=== PATIENT | female | born 1960 | race Caucasian/White ===

== ENCOUNTER → 2016-03-20 | Outpatient (CLI) | payer OTHER ==
[~2016-03-20] MED LIST: BUPR-79 PO; CEPH500C PO; LEVO200T PO; RANI1TAB75 PO
[2016-03-20 10:08] LABS: BASO ABS # 0.03 K/uL (0-0.2); COMPLETE YES; HEMATOCRIT 36.5 % (37-47); LYMPH % 34.4 %; LYMPH ABS # 1.07 K/uL (1.2-3.4); MEAN CELL VOLUME 90.8 fL (80-100); MEAN CORPUSCULAR HEMOGLOBIN 30.6 pg (25-34); MEAN CORPUSCULAR HGB CONC 33.7 g/dl (32-36); MEAN PLATELET VOLUME 10.2 fL (7.4-10.4); MONO % 7.4 %; NEUT % 56.2 %; PLATELET COUNT 134 K/uL (130-400); RED BLOOD COUNT 4.02 M/uL (4.2-5.4); WHITE BLOOD COUNT 3.11 K/uL (4.8-10.8)
== END | disposition home or self-care (01) ==
LOC: C.LAB 09:07
PROVIDERS: ATTEND Family Medicine
DX: K91.2 Postsurgical malabsorption, not elsewhere classified (principal)

== ENCOUNTER 2016-09-26 13:47 | Emergency (ER) | payer OTHER ==
[~2016-09-26] VITALS: Ht 160 cm; Wt 73.8 kg
[2016-09-26 13:50] VITALS: TEMP 37.2; Ht 160 cm; Wt 73.8 kg
[2016-09-26] MEDS ORDERED: XYLOCAINE 1%/SOD BICARB 20 ML VIAL INFIL ONE (13:57)
[2016-09-26] MEDS ORDERED: BUPR-79 PO (14:01)
[2016-09-26] MEDS ORDERED: LEVO200T PO (14:01)
[2016-09-26] MEDS ORDERED: RANI1TAB75 PO (14:01)
[2016-09-26] MEDS ORDERED: GELATIN SPONGE 12-7MM EXT ONE (15:30)
[2016-09-26] MEDS ORDERED: CEPH500C PO (15:45)
--- NOTE | 2016-09-26 15:45 | EMERGENCY ROOM VISIT NOTE ---
ED Visit Note First contact with patient: 14:24 CHIEF COMPLAINT: Finger avulsion HISTORY OF PRESENT ILLNESS: This 56-year-old female patient presents to the emergency department approximately 1-1/2 hours after cutting the tip of her right middle finger while cutting corn off of the cob. The patient states she was using a V-shaped bleed to remove corn from the cob for freezing, when she accidentally sliced off the tip of her right middle finger. The bleeding has not stopped. She has been applying direct pressure to the wound, however continues to lead significantly. The patient is not on blood thinners. Denies weakness or numbness of the finger. The patient has full range of motion of the fingers. The patient rates the pain as minimal and 0/10. The patient denies any other injuries. The patient's tetanus shot is up to date. REVIEW OF SYSTEMS: A 6 system review of systems was completed with positives and pertinent negatives listed in the HPI. ALLERGIES: Codeine MEDICATIONS: Wellbutrin, Synthroid, ranitidine, and another antidepressant, which the patient is unable to recall the name of PMH: Depression, hypothyroidism, GERD SOCIAL HISTORY: The patient lives locally with family. She denies drug, alcohol , tobacco use. PHYSICAL EXAM: Vital Signs: Reviewed Nurse's notes, vital signs stable. GENERAL : This is a 56-year-old female, in no acute distress, well developed, well nourished. SKIN: The anterior fingertip of the right third digit is avulsed. There is no skin remaining. The wound is bleeding from what appears to be a single small blood vessel. There is no foreign material in the wound and it looks clean. No deep structures such as tendons, bones, or significant blood vessels are seen in the base of the wound. Extension and flexion of the finger is full and strong. Full range of motion of the wrist and other fingers. Capillary refill less than 2 seconds. Normal sensation to light and sharp touch. EMERGENCY DEPARTMENT COURSE: I examined the patient. Attempts were made to stop the bleeding with direct pressure and ice. This was applied for proximally 40 minutes. There was no improvement in the patient's bleeding. At this time, I did remove the bandage and apply Gelfoam with pressure. The bleeding continued through the Gelfoam and overlying bandage. At this time, surgicel was used in conjunction with a finger tourniquet. The bleeding did stop with the tourniquet, however upon removal of the tourniquet after 10 minutes, the bleeding began again. At this time, I did consult with Renetta Corbin PA-C to come evaluate the patient. She suggested ligating the vessel using 6- 0 fast absorbing sutures. Verbal consent was obtained to perform the procedure. Using sterile technique the wound was cleansed with Betadine. 6 ml of 1% buffered lidocaine was used to perform a digital block to anesthetize the patient. The area was sterilely draped. Once the patient was anesthetized, the wound was copiously irrigated under pressure with sterile saline. The wound was explored and was as described above. Attempts were made to ligate the vessel with 4 6-0 fast-absorbing sutures. I was unsuccessful at this time. I called Renetta Corbin PA-C back to the room, and she did successfully ligate the vessel with 2 6-0 simple fast-absorbing sutures after locally anesthetizing the blood vessel. The patient tolerated the procedure well. Hemostasis was achieved. The area was cleaned with sterile saline and dressed with Gelfoam and a bandage. The patient was discharged home in good condition. DIFFERENTIAL DIAGNOSIS: Finger laceration, avulsion, fracture, infection, arterial bleed, and others. DIAGNOSIS: Finger avulsion DISCHARGE INSTRUCTIONS & TREATMENT: Please leave the bandage which was applied in the emergency department in place until tomorrow, unless it bleeds through. If it bleeds through, remove the outer bandage, and replace it with new gauze, but attempt to leave the inner bandage in place. We did ligate the blood vessel with fast absorbing sutures. These will absorb on their own, and you do not need further follow-up for removal of sutures. You were prescribed Keflex to be taken 4x daily. This is an antibiotic. All antibiotics have the potential to cause diarrhea. Stop this medication and contact a medical provider if you were to develop any significant adverse side effects including: wheezing, shortness of breath, passing out, vomiting, or a diffuse rash. Always take antibiotics as directed and COMPLETE the ENTIRE course regardless of the improvement of your symptoms. If the wound begins rebleeding, apply direct pressure and ice. Hold this until the bleeding stops. If you're unable to stop the bleeding at home, return to the emergency department for further management. Proper wound care is essential for adequate wound healing and infection prevention. You can shower and clean the wound with soap and water. Do not scour over the wound, pat dry with a towel. Do not submerse the wound (i.e. bathe or dish wash) until the wound has fully healed. You can use an antibiotic ointment with a dressing over the wound for the next 3-4 days. After this time you may leave the wound dry and open to the air. Please return to the emergency department for worsening bleeding, pus, drainage , pain, redness, swelling, or if you're unable to control the bleeding at home. Do not take any NSAIDs or aspirin. You may use Tylenol as needed for pain, but do not exceed the recommended dosing or take more than 3000mg acetaminophen in 24 hours. Please follow-up with your PCP in 1-2 days for recheck and further evaluation of wound. Current/Historical Medications Scheduled Bupropion (Wellbutrin Sr), 150 MG PO BID Cephalexin Monohydrate (Keflex), 500 MG PO QID Levothyroxine Sodium (Synthroid), 200 MCG PO DAILY Ranitidine HCl (Ranitidine 75), 75 MG PO DAILY Allergies Coded Allergies: Codeine (Verified Allergy, Intermediate, HIVES, 03/24/09) Vital Signs Date Time Temp Pulse Resp B/P (MAP) Pulse Ox O2 Delivery O2 Flow Rate FiO2 09/26/16 16:53 82 16 124/72 98 09/26/16 13:50 37.2 82 20 118/59 95 Room Air Departure Information Impression Primary Impression: Fingertip avulsion Dispostion Home / Self-Care Condition GOOD Prescriptions Cephalexin Monohydrate (Keflex) 500 Mg Cap 500 MG PO QID for 7 Days, #28 CAP Prov: Nafisa Vernon PA-C 09/26/16 Referrals Caryn Lam M.D. (PCP) Patient Instructions ED Avulsion Dermal, [facility] Additional Instructions Please leave the bandage which was applied in the emergency department in place until tomorrow, unless it bleeds through. If it bleeds through, remove the outer bandage, and replace it with new gauze, but attempt to leave the inner bandage in place. We did ligate the blood vessel with fast absorbing sutures. These will absorb on their own, and you do not need further follow-up for removal of sutures. You were prescribed Keflex to be taken 4x daily. This is an antibiotic. All antibiotics have the potential to cause diarrhea. Stop this medication and contact a medical provider if you were to develop any significant adverse side effects including: wheezing, shortness of breath, passing out, vomiting, or a diffuse rash. Always take antibiotics as directed and COMPLETE the ENTIRE course regardless of the improvement of your symptoms. If the wound begins rebleeding, apply direct pressure and ice. Hold this until the bleeding stops. If you're unable to stop the bleeding at home, return to the emergency department for further management. Proper wound care is essential for adequate wound healing and infection prevention. You can shower and clean the wound with soap and water. Do not scour over the wound, pat dry with a towel. Do not submerse the wound (i.e. bathe or dish wash) until the wound has fully healed. You can use an antibiotic ointment with a dressing over the wound for the next 3-4 days. After this time you may leave the wound dry and open to the air. Please return to the emergency department for worsening bleeding, pus, drainage , pain, redness, swelling, or if you're unable to control the bleeding at home. Do not take any NSAIDs or aspirin. You may use Tylenol as needed for pain, but do not exceed the recommended dosing or take more than 3000mg acetaminophen in 24 hours. Please follow-up with your PCP in 1-2 days for recheck and further evaluation of wound. Problem Qualifiers Primary Impression: Fingertip avulsion Encounter type: initial encounter Qualified Codes: S61.209A - Unspecified open wound of unspecified finger without damage to nail, initial encounter
[2016-09-26 16:53] VITALS: BP 124/72; PULSE 82; O2SAT 98
== END 2016-09-26 16:54 | disposition home or self-care (01) ==
LOC: C.EDB 13:52 → C.EDD 16:54
DX: S61.202A Unspecified open wound of right middle finger without damage to nail, initial encounter (principal); W45.8XXA Other foreign body or object entering through skin, initial encounter

== ENCOUNTER 2022-08-01 06:08 | Inpatient (IN) ==
[2022-08-01] MEDS ORDERED: ACETAMINOPHEN 1,000 MG/100 ML VIAL IV STA (06:35)
[2022-08-01] MEDS ORDERED: dexAMETHasone**PF** 10 MG/ML VIAL IV ONE (06:35)
[2022-08-01] MEDS ORDERED: CYCLOBENZAPRINE HCL 5 MG TAB PO STA (06:35)
[2022-08-01] MEDS ORDERED: ONDANSETRON INJ 2 MG/ML 2 ML VIAL IV STA (06:35)
[2022-08-01] MEDS ORDERED: MoRPHine SULFATE 2 MG/ML CARP IV STA (06:35)
[2022-08-01] MEDS ORDERED: KETOROLAC TROMETHAMINE 15 MG/ML VIAL IV STA (06:35)
--- NOTE | 2022-08-01 06:40 | Emergency Department Note ---
Impression & Plan Lower back pain, Sciatica ED Provider Note NAME: LISBETH VELAZQUEZ AGE: 62 SEX: F : 1960 ARRIVES VIA: Walk-In INFORMANT: [Patient] ED PROVIDER(S): [Paul Jackson MD] CHIEF COMPLAINT: Back pain HISTORY OF PRESENT ILLNESS: The patient is a 62-year-old female who states that 4 days ago she was sitting on the floor and bent forward and felt something pull in her left lower back. She was using Tylenol and things were feeling better up until yesterday when she bent over and flared things up once again. She has left-sided back pain that is worse with movement. She feels pain move down the left leg. The left leg is not weak. There is no numbness in the leg or groin. No difficulty with urination or her bowels. She did not fall. There has been no fever or chills. She is here for pain control. PMHx/PSHx: See Below SOCIAL HISTORY: See Below. PHYSICAL EXAM: GENERAL: Patient is in no acute distress. HEENT: No acute trauma, normocephalic atraumatic, mucous membranes moist, no nasal congestion. LUNGS: Clear to auscultation bilaterally, no wheeze, no rhonchi, breath sounds equal. HEART: Without murmurs gallops or rubs, regular rate and rhythm. EXTREMITIES: No cyanosis or edema, full range of motion of all the joints without pain or difficulty, no signs for acute trauma. NEUROLOGIC: Oriented x 3, no acute motor or sensory deficits, no focal weakness. She has 2/4 left patellar and Achilles reflexes. She has strong plantar flexion on the left and strong left great toe dorsiflexion. SKIN: No rash, no jaundice, no diaphoresis. Back: Tender in the area of the left lumbar and left SI joint. The muscles here do seem in spasm. Her pain does worsen with movement. DIFFERENTIAL DIAGNOSIS: Lumbar strain, hematoma, nerve impingement, sciatica, herniated disc disease, fracture, among others. EMERGENCY DEPARTMENT COURSE/PROCEDURES: Prior/Outside records reviewed: None. MEDICAL DECISION MAKING: There is no leukocytosis or concerning anemia. There is a normal platelet count. No renal failure or significant electrolyte abnormality. COVID testing returned negative. On exam, the patient was tender in the left lumbar area and left SI joint. Reflexes and strength in the left lower extremity were both intact. The patient received IV Tylenol, IV Decadron, IV Toradol, IV morphine, IV Zofran and eventually IV Dilaudid for pain control. Despite these meds, she was still quite uncomfortable. An MRI of the lumbar spine was done, there was a disc bulge seen but no pathology thought acutely surgical as per radiology. Patient is going to be hospitalized for pain control. She cannot go home in this condition. I did speak with case management, the on-call hospitalist was consulted. DISPOSITION: Patient's presentation and findings warrant a hospital stay. Past Med/Surg History Medical History TERRANCE (generalized anxiety disorder) Hypothyroidism MDD (major depressive disorder) Obesity (BMI 30-39.9) Surgical History (Updated 08/01/22 @ 12:44 by Lorelei Song PA-C) History of partial hysterectomy Hx of breast reduction, elective Hx of colonoscopy Hx of gastric bypass Family History (Updated 08/01/22 @ 12:45 by Lorelei Song PA-C) Father Diabetes Hypertension Cancer esophageal cancer Sister Diabetes Social History Smoking Status: Never smoker Hx Alcohol Use: Yes Alcohol Intake Frequency: Monthly or Less Preferred Language: Indonesian Feels Safe at Home: Yes Allergies Allergies Allergy/AdvReac Type Severity Reaction Status Date / Time codeine Allergy Intermediate HIVES Verified 08/01/22 09:35 Home Meds Home Medications Medication Instructions Recorded Confirmed bupropion HCl 150 mg tablet,12 hr 150 mg PO BID 08/01/22 08/01/22 sustained-release duloxetine 30 mg capsule,delayed See Rx Instructions .Route .COMPLEX 08/01/22 08/01/22 release duloxetine 60 mg capsule,delayed See Rx Instructions .Route .COMPLEX 08/01/22 08/01/22 release levothyroxine 112 mcg tablet 112 mcg PO QAM 08/01/22 08/01/22 trazodone 50 mg tablet 50 mg PO HS 08/01/22 08/01/22 Results & Data (ED) Vital Signs Vital Signs - 24 hr 08/01/22 06:10 08/01/22 06:26 08/01/22 06:26 Temperature 36.5 C Temperature Source Temporal Artery Scan Pulse Rate 82 61 Pulse Rate [Apical] 62 Pulse Rate from SpO2 Sensor Respiratory Rate 18 16 Respiratory Effort / Characteristics Non-Labored Spontaneous Respiratory Depth Normal Blood Pressure 117/71 Blood Pressure [Right Arm] 118/60 Blood Pressure Mean 86 Blood Pressure Mean [Right Arm] 79 Blood Pressure Position Sitting Pulse Oximetry 100 100 Oxygen Delivery Method Room Air Room Air Oxygen Flow Rate Sepsis Recent Fever Within 48 Hours No Sepsis New/Unexplained Change in Mental Status No Sepsis Action Taken by Nursing No Action Required 08/01/22 08:54 08/01/22 09:32 08/01/22 10:12 Temperature Temperature Source Pulse Rate 71 Pulse Rate [Apical] 77 68 Pulse Rate from SpO2 Sensor Respiratory Rate 20 16 Respiratory Effort / Characteristics Non-Labored Spontaneous Non-Labored Respiratory Depth Normal Normal Blood Pressure Blood Pressure [Right Arm] 124/65 117/74 Blood Pressure Mean Blood Pressure Mean [Right Arm] 84 88 Blood Pressure Position Pulse Oximetry 96 98 Oxygen Delivery Method Room Air Nasal Cannula Oxygen Flow Rate 4 Sepsis Recent Fever Within 48 Hours Sepsis New/Unexplained Change in Mental Status Sepsis Action Taken by Nursing 08/01/22 12:05 08/01/22 13:01 08/01/22 13:41 Temperature Temperature Source Pulse Rate 58 L 66 70 Pulse Rate [Apical] Pulse Rate from SpO2 Sensor 58 L 65 Respiratory Rate 16 16 Respiratory Effort / Characteristics Respiratory Depth Blood Pressure 116/66 127/76 Blood Pressure [Right Arm] Blood Pressure Mean 82 93 Blood Pressure Mean [Right Arm] Blood Pressure Position Pulse Oximetry 98 98 Oxygen Delivery Method Nasal Cannula Nasal Cannula Oxygen Flow Rate 3 3 Sepsis Recent Fever Within 48 Hours Sepsis New/Unexplained Change in Mental Status Sepsis Action Taken by Nursing 08/01/22 14:00 08/01/22 15:00 Temperature Temperature Source Pulse Rate 63 68 Pulse Rate [Apical] Pulse Rate from SpO2 Sensor 61 69 Respiratory Rate 18 16 Respiratory Effort / Characteristics Respiratory Depth Blood Pressure 128/72 108/79 Blood Pressure [Right Arm] Blood Pressure Mean 90 88 Blood Pressure Mean [Right Arm] Blood Pressure Position Pulse Oximetry 98 99 Oxygen Delivery Method Nasal Cannula Nasal Cannula Oxygen Flow Rate 3 3 Sepsis Recent Fever Within 48 Hours Sepsis New/Unexplained Change in Mental Status Sepsis Action Taken by [facility] Medications Current Medication List: was personally reviewed by me Laboratory Data Attestation: I reviewed the patient's lab results. 08/01/22 11:49 08/01/22 11:49 Lab Results 08/01/22 08/01/22 08/01/22 Range/Units 11:49 11:49 11:54 WBC 4.29 L (4.8-10.8) K/ul RBC 3.99 L (4.20-5.40) M/uL Hgb 12.2 (12.0-16.0) g/dl Hct 36.3 L (37.0-47.0) % MCV 91.0 (80.0-100.0) fL MCH 30.6 (25.0-34.0) pg MCHC 33.6 (32.0-36.0) g/dL RDW Std Deviation 40.7 (36.4-46.3) fL RDW Coeff of Chris 12.3 (11.5-14.5) % Plt Count 153 (130-400) K/uL MPV 10.2 (9.4-12.4) fL Sodium 140 (136-145) mmol/L Potassium 4.6 (3.5-5.1) mmol/L Chloride 108 H (98-107) mmol/L Carbon Dioxide 28 (21-32) mmol/L Anion Gap 4 (3-11) BUN 16 (6-23) mg/dl Creatinine 0.99 (0.6-1.2) mg/dl Est Cr Clr Drug Dosing 59.6 ml/min Est GFR ( Amer) 71.3 ml/min Est GFR (Non-Af Amer) 61.5 ml/min BUN/Creatinine Ratio 16.2 (10-20) Glucose 137 H (70-99(Fasting)) mg/dl Calcium 9.1 (8.6-10.3) mg/dl SARS-CoV-2, RNA, NAAT NEGATIVE (NEGATIVE) Administered Medications Discontinued Medications Cyclobenzaprine HCl (Cyclobenzaprine Hcl 5 Mg Tab) 5 mg PO NOW STA Stop: 08/01/22 06:36 Last Admin: 08/01/22 06:54 Dose: 5 mg Documented By: RONALDO Dexamethasone Sodium Phosphate (DexamethasonePf 10 Mg/Ml Vial) 10 mg IV NOW ONE Stop: 08/01/22 06:36 Last Admin: 08/01/22 06:52 Dose: 10 mg Documented By: RONALDO Hydromorphone HCl (Hydromorphone Inj 0.5 Mg/0.5 Ml Syr) 0.5 mg IV NOW STA Stop: 08/01/22 08:53 Last Admin: 08/01/22 08:56 Dose: 0.5 mg Documented By: HERIBERTO Acetaminophen (Ofirmev) 1,000 mg in 100 mls @ 400 mls/hr IV NOW STA Stop: 08/01/22 06:49 Last Infusion: 08/01/22 07:09 Dose: 0 mls/hr Documented By: Admin: 08/01/22 06:49 Dose: 400 mls/hr Documented By: RONALDO Ketorolac Tromethamine (Ketorolac Tromethamine 15 Mg/Ml Vial) 15 mg IV NOW STA Stop: 08/01/22 06:36 Last Admin: 08/01/22 06:50 Dose: 15 mg Documented By: RONALDO Morphine Sulfate (Morphine Sulfate 2 Mg/Ml Carp) 2 mg IV NOW STA Stop: 08/01/22 06:36 Last Admin: 08/01/22 06:55 Dose: 2 mg Documented By: RONALDO Ondansetron HCl (Ondansetron Inj 2 Mg/Ml 2 Ml Vial) 4 mg IV NOW STA Stop: 08/01/22 06:36 Last Admin: 08/01/22 06:53 Dose: 4 mg Documented By: RONALDO Imaging Data Radiologist's Impression: Lumbar Spine MRI 08/01/22 08:52 MR lumbar spine wo con CLINICAL HISTORY: left back pain, left sciatica TECHNIQUE: Multiplanar sequences through the lumbar spine were obtained, without intravenous contrast. Comparison: None available at the time of this dictation. FINDINGS: The alignment is anatomical. L1-L2: Mild posterior disc bulge is seen without significant canal or neuroforaminal stenosis. L2-L3: Mild posterior disc bulge is seen without significant canal or neuroforaminal stenosis. L3-L4: Broad-based posterior disc bulge results in moderate canal stenosis, AP diameter is 6 mm. There is moderate bilateral neuroforaminal stenosis. L4-L5: No significant abnormality. L5-S1: No significant abnormality. The spinal ligaments are intact, without evidence of disruption or abnormal si gnal intensity. The spinal cord is normal in signal intensity and there is no evidence of cord contusion. There is no evidence of an extradural, intradural, extramedullary or intramedullary lesion. Visualized soft tissues are normal. IMPRESSION: Multilevel degenerative changes are seen with prominent disc bulge at L3-L4. There is moderate canal or neural foraminal ACT 112: Negative or not required by law. Electronically signed by: Theodore See M.D. 08/01/2022 11:21 AM Discharge Plan Visit Data Chief Complaint: Back Injury/Pain Stated Complaint: BACK PAIN ED Provider: Paul Jackson Discharge Problem: Lower back pain, Sciatica Patient Disposition: Admitted As Inpatient Condition: Fair Forms Stand Alone Forms: [facility] Prescriptions Prescriptions: No Action bupropion HCl 150 mg tablet sustained-release 12 hr 150 mg PO BID trazodone 50 mg tablet 50 mg PO HS levothyroxine 112 mcg tablet 112 mcg PO QAM duloxetine 30 mg capsule,delayed release(DR/EC) See Rx Instructions .ROUTE .COMPLEX Rx Instructions: Take 30mg capsule w/ 60mg capsule to equal 90mg once in the morning duloxetine 60 mg capsule,delayed release(DR/EC) See Rx Instructions .ROUTE .COMPLEX Rx Instructions: Take 60mg capsule w/ 30mg capsule to equal 90mg once in the morning Referrals Referrals: Alin Taveras MD [Primary Care Provider] -
[2022-08-01] MEDS ORDERED: HYDROmorphone INJ 0.5 MG/0.5 ML SYR IV STA (08:52)
--- NOTE | 2022-08-01 11:23 | Magnetic Resonance Report ---
MR lumbar spine wo con CLINICAL HISTORY: left back pain, left sciatica TECHNIQUE: Multiplanar sequences through the lumbar spine were obtained, without intravenous contrast . Comparison: None available at the time of this dictation. FINDINGS: The alignment is anatomical. L1-L2: Mild posterior disc bulge is seen without significant canal or neuroforaminal stenosis. L2-L3: Mild posterior disc bulge is seen without significant canal or neuroforaminal stenosis. L3-L4: Broad-based posterior disc bulge results in moderate canal stenosis, AP diameter is 6 mm. Ther e is moderate bilateral neuroforaminal stenosis. L4-L5: No significant abnormality. L5-S1: No significant abnormality. The spinal ligaments are intact, without evidence of disruption or abnormal signal intensity. The spi nal cord is normal in signal intensity and there is no evidence of cord contusion. There is no eviden ce of an extradural, intradural, extramedullary or intramedullary lesion. Visualized soft tissues are normal. IMPRESSION: Multilevel degenerative changes are seen with prominent disc bulge at L3-L4. There is moderate canal or neural foraminal ACT 112: Negative or not required by law. Electronically signed by: Theodore See M.D. 08/01/2022 11:21 AM
--- NOTE | 2022-08-01 11:51 | History & Physical Report ---
Date of Service August 01, 2022 Assessment & Plan (1) Back pain: Plan: - Admit to med surg - Continue with pain control tylenol, toradol IV, dilaudid IV prn - Pt received dexamethasone 10 mg IV x 1 in the ER along with toradol, morphine sulfate, dilaudid, cyclobenzaprine - her pain is adequately controlled at present-consider additional steroid administration tomorrow with taper - MRI spine reviewed - Impression shows Multilevel degenerative changes are seen with prominent disc bulge at L3-L4. There is moderate canal or neural foraminal stenosis. - Ortho consulted for further recommendations -? brace ? ortho spine not available in hospital today - Allow diet for now - PT/OT consults (2) Hypothyroidism: Plan: - Continue levothyroxine 112 mcg daily (3) MDD (major depressive disorder): (4) TERRANCE (generalized anxiety disorder): Plan: - Cont wellbutrin 150 mg BID, cymbalta 90 mg daily (5) Obesity (BMI 30-39.9): Plan: - S/p gastric bypass surgery - BMI of 31.0, pt does not diet or exercise routinely. No strength training or yoga - this may be beneficial for her for core strength and back support in the further - PT/OT as above DVT ppx: teds, scds, heparin subq CODE: FULL code Dispo: From home, likely to remain in the hospital for 1-2 days A total of 77 minutes were spent with greater than 50% of that time face to face with the patient, personally reviewing all current laboratories, imaging studies, past medication reconciliation, outpatient chart review, and discussion with specialists to collaborate care for the patient with attending. Please see attending documentation for corrections and/or additions. History of Present Illness Chief Complaint: Back pain Primary Care Provider: Alin Taveras MD This is 62 yo F with PMhx of MDD, TERRANCE, CKD, Hypothyroidism, gastric bypass surgery, GERD, who presents with worsening back pain x 5 days. She reports recently getting a new puppy; She was sitting on the floor Friday with the dog and reached for something and felt a pop in her left lower back. She was using tylenol, aleve, salonpas heat pads, ice, and thought it was getting better. Yesterday again she felt her back pop when she was sitting on the sofa and went to stretch/get up and had horrible pain in her left side of her lower back which radiates down the back of her left leg, as well as the front of her left groin region. She was having difficulty getting into bed, and was able to walk but was in terrible amount of pain. Pt states was unable to control the pain at home and had her bring her to the ER today. Pt reports this is one of the worst pains she has ever felt. Denies numbness in her groin, denies incontinence. Last BM was yesterday. She was able to take her routine home medications this morning. No previous back surgery. Reports back has gone out of place about 3 times in the past month but does not see a chiropractor or specifically does any stretching or exercise at home. She just "waits it out" until things go back into place themselves and uses the above listed alleviating factors to help. Her Kody is present at bedside. Allergies Allergy/AdvReac Type Severity Reaction Status Date / Time codeine Allergy Intermediate HIVES Verified 08/01/22 09:35 Home Medications Medication Instructions Recorded Confirmed Type bupropion HCl 150 mg tablet,12 hr 150 mg PO BID 08/01/22 08/01/22 History sustained-release duloxetine 30 mg capsule,delayed See Rx Instructions .Route .COMPLEX 08/01/22 08/01/22 History release duloxetine 60 mg capsule,delayed See Rx Instructions .Route .COMPLEX 08/01/22 08/01/22 History release levothyroxine 112 mcg tablet 112 mcg PO QAM 08/01/22 08/01/22 History trazodone 50 mg tablet 50 mg PO HS 08/01/22 08/01/22 History Past Med/Surg History Medical History TERRANCE (generalized anxiety disorder) Hypothyroidism MDD (major depressive disorder) Obesity (BMI 30-39.9) Surgical History (Updated 08/01/22 @ 12:44 by Lorelei Song PA-C) History of partial hysterectomy Hx of breast reduction, elective Hx of colonoscopy Hx of gastric bypass Family History (Updated 08/01/22 @ 12:45 by Lorelei Song PA-C) Father Diabetes Hypertension Cancer esophageal cancer Sister Diabetes Social History Smoking Status: Never smoker Hx Alcohol Use: No Hx Substance Use: No Preferred Language: Lithuanian Communication Ability: Effective Human Resource Officer Required: No Beliefs That Will Affect Care: None Current Living Situation: Spouse Other Information That Helps Us Care for You: No Feels Safe at Home: Yes Safety Concerns: Feels Safe At This Time Assistive Devices: None Review of Systems Review of Systems: Constitutional: No fever, sweats or chills Eyes: No diplopia, no worsening or blurred vision ENT: normal hearing, no trouble swallowing Respiratory: No cough, sputum, dyspnea at rest or on exertion Cardiovascular: No chest pain, tightness or palpitations Back: As per HPI Abdomen: No pain, nausea, vomiting, diarrhea or constipation Musculoskeletal: No joint pain, calf pain, swelling Neurologic: No weakness, numbness/tingling, or balance problems Psychiatric: + anxiety and depression on medication Skin: No rash or itch Physical Exam Physical Exam: General: awake, alert, no apparent distress, appears fatigued, + comfortable, + obese with BMI 31.0 Head: Normocephalic, atraumatic ENT: PERRL, EOMI, no pharyngeal exudate, mucous membranes moist Chest: Clear to auscultation, on 2L via NC (does not wear at home), no adventitious breath sounds Cardiac: Regular rate and rhythm, no murmur, no JVD, normal peripheral pulses, good capillary refill Abdominal: NABS x 4 quadrants, soft, nondistended, nontender to palpation, no rebound or guarding Extremities: Normal inspection, no peripheral edema or erythema, calfs nontender to palpation Psych: Normal mood and affect Neuro: AAO x 3, strength intact bilaterally and rated 5/5, no motor deficits, speech is clear, no peripheral sensory deficits Results & Data Results & Data Vital Signs (Past 12 Hours) Vital Signs Temp Pulse Pulse Resp BP BP Pulse Ox 08/01/22 10:12 68 16 117/74 98 08/01/22 09:32 71 08/01/22 08:54 77 20 124/65 96 08/01/22 06:26 62 16 118/60 100 08/01/22 06:26 61 08/01/22 06:10 36.5 C 82 18 117/71 100 O2 Del Method O2 Flow Rate 08/01/22 10:12 Nasal Cannula 4 08/01/22 09:32 08/01/22 08:54 Room Air 08/01/22 06:26 Room Air 08/01/22 06:26 08/01/22 06:10 Room Air Laboratory Results 08/01/22 11:49 WBC 4.29 L RBC 3.99 L Hgb 12.2 Hct 36.3 L MCV 91.0 MCH 30.6 MCHC 33.6 RDW Std Deviation 40.7 RDW Coeff of Chris 12.3 Plt Count 153 MPV 10.2 Diagnostic Findings Lumbar Spine MRI 08/01/22 08:52 MR lumbar spine wo con CLINICAL HISTORY: left back pain, left sciatica TECHNIQUE: Multiplanar sequences through the lumbar spine were obtained, without intravenous contrast. Comparison: None available at the time of this dictation. FINDINGS: The alignment is anatomical. L1-L2: Mild posterior disc bulge is seen without significant canal or neuroforaminal stenosis. L2-L3: Mild posterior disc bulge is seen without significant canal or neuroforaminal stenosis. L3-L4: Broad-based posterior disc bulge results in moderate canal stenosis, AP diameter is 6 mm. There is moderate bilateral neuroforaminal stenosis. L4-L5: No significant abnormality. L5-S1: No significant abnormality. The spinal ligaments are intact, without evidence of disruption or abnormal signal intensity. The spinal cord is normal in signal intensity and there is no evidence of cord contusion. There is no evidence of an extradural, intradural, extramedullary or intramedullary lesion. Visualized soft tissues are normal. IMPRESSION: Multilevel degenerative changes are seen with prominent disc bulge at L3-L4. There is moderate canal or neural foraminal ACT 112: Negative or not required by law. Electronically signed by: Theodore See M.D. 08/01/2022 11:21 AM Code Status & VTE Plan Code Status Full code - discussed with the patient at bedside Supervising Physician Co-Signing Physician Notes Pt seen and examined by myself, Renee Jean MD on the day of service. Care was coordinated with Lorelei Song PA-C. Please refer to her note for additional information. 62yo with debilitating back pain. MRI spine showed disc bulge in lumbar spine with stenosis Pain control, ortho spine consult, PT/OT.
[2022-08-01 12:17] LABS: Hematocrit (blood only) 36.3 % (37.0-47.0); Hemoglobin 12.2 g/dl (12.0-16.0); Mean Corpuscular Hemoglobin 30.6 pg (25.0-34.0); Mean Corpuscular Hgb Conc 33.6 g/dL (32.0-36.0); Mean Platelet Volume 10.2 fL (9.4-12.4); Platelet Count 153 K/uL (130-400); RDW Coefficient of Variation 12.3 % (11.5-14.5); RDW Standard Deviation 40.7 fL (36.4-46.3); Red Blood Count 3.99 M/uL (4.20-5.40); White Blood Count 4.29 K/ul (4.8-10.8)
[2022-08-01 12:31] LABS: BUN Creatinine Ratio 16.2 (10-20); Calcium 9.1 mg/dl (8.6-10.3); Creatinine Clr Calc Pharmacy 59.6 ml/min; Est GFR (African American) 71.3 ml/min; Est GFR (Non-African American) 61.5 ml/min; Potassium 4.6 mmol/L (3.5-5.1)
[2022-08-01 15:51] LABS: Appearance Urine Clear (Clear); Bilirubin Urine Negative (Negative); Blood Urine Negative (Negative); Color Urine Yellow; Glucose Urine UA Negative (Negative); Ketones Urine Negative (Negative); Leukocyte Esterase Urine Negative (Negative); Nitrite Urine Negative (Negative); Protein Urine Negative (Negative); Specific Gravity Urine 1.021 (1.000-1.030); Urobilinogen Urine Negative (Negative); pH Urine 7.5 (4.5-7.5)
[2022-08-01] MEDS ORDERED: KETOROLAC TROMETHAMINE 15 MG/ML VIAL IV PRN (17:16)
[2022-08-01] MEDS ORDERED: ONDANSETRON INJ 2 MG/ML 2 ML VIAL IV PRN (17:16)
[2022-08-01] MEDS ORDERED: BACLOFEN 10 MG TAB PO PRN (17:16)
[2022-08-01] MEDS: ACETAMINOPHEN 325 MG TAB PO PRN (20:41)
[2022-08-01] MEDS: traZODone HCL 50 MG TAB PO SCH (20:42)
[2022-08-01] MEDS: HEPARIN SOD 5,000 UNIT/0.5 ML VIAL SQ SCH (20:43)
[2022-08-01] MEDS: buPROPion SR 150 MG TABCR PO SCH (20:43)
[2022-08-02] MEDS: LEVOTHYROXINE SODIUM 112 MCG TABLET PO SCH (05:35)
[2022-08-02] MEDS: HYDROmorphone INJ 0.5 MG/0.5 ML SYR IV PRN (06:16)
[2022-08-02 07:50] LABS: Hematocrit (blood only) 34.5 % (37.0-47.0); Hemoglobin 11.3 g/dl (12.0-16.0); Mean Corpuscular Hemoglobin 30.5 pg (25.0-34.0); Mean Corpuscular Hgb Conc 32.8 g/dL (32.0-36.0); Mean Corpuscular Volume 93.2 fL (80.0-100.0); Mean Platelet Volume 10.5 fL (9.4-12.4); Platelet Count 154 K/uL (130-400); RDW Coefficient of Variation 12.2 % (11.5-14.5); RDW Standard Deviation 41.8 fL (36.4-46.3); White Blood Count 4.52 K/ul (4.8-10.8)
[2022-08-02] MEDS: DULoxetine HCL 60 MG CAP PO SCH (07:56)
[2022-08-02] MEDS: HEPARIN SOD 5,000 UNIT/0.5 ML VIAL SQ SCH ×2 (07:56→20:17)
[2022-08-02] MEDS: DULoxetine HCL 30 MG CAP PO SCH (07:56)
[2022-08-02] MEDS: buPROPion SR 150 MG TABCR PO SCH ×2 (07:56→20:17)
[2022-08-02 07:59] LABS: BUN Creatinine Ratio 19.1 (10-20); Calcium 8.8 mg/dl (8.6-10.3); Creatinine Clr Calc Pharmacy 51.3 ml/min; Est GFR (African American) 59.5 ml/min; Est GFR (Non-African American) 51.3 ml/min; Potassium 4.1 mmol/L (3.5-5.1)
--- NOTE | 2022-08-02 10:21 | Orthopedic Consultation ---
Date of Consultation August 02, 2022 Assessment & Plan (1) Lumbar disc herniation with radiculopathy: MRI lumbar spine performed demonstrates evidence of a massive disc herniation L3-L4 on the left with significant displacement of the traversing nerves. Plan at the at this time her symptom complex correlates with her MRI. She is markedly incapacitated. We will attempt a trial of physical therapy and determine her progress. If she continues to have severe radiculopathy incapable of ambulation not controlled with pain medicine if she would be a candidate for lumbar decompression and partial discectomy. I will reevaluate her throughout the weekend. If she fails to progress we would hopefully be able to perform surgery as soon as Friday. History of Present Illness Reason for Consultation: Left leg pain Attending Physician: Renee Jean MD History of Present Illness This is a 62-year-old female who presents last evening with severe lumbar radiculopathy. She states this began early in the week and progressed to the point that it was incapacitating in nature. She has pain late rating into the left buttock left groin and anterior thigh below the knee into her anterior tibia. Right lower extremity has some pain but not to the degree of the left. Markedly limits her ability to stand and ambulate. She is currently comfortable at bedrest and on pain medications. Allergies Allergy/AdvReac Type Severity Reaction Status Date / Time codeine Allergy Intermediate HIVES Verified 08/01/22 09:35 Home Medications Medication Instructions Recorded Confirmed Type bupropion HCl 150 mg tablet,12 hr 150 mg PO BID 08/01/22 08/01/22 History sustained-release duloxetine 30 mg capsule,delayed See Rx Instructions .Route .COMPLEX 08/01/22 08/01/22 History release duloxetine 60 mg capsule,delayed See Rx Instructions .Route .COMPLEX 08/01/22 08/01/22 History release levothyroxine 112 mcg tablet 112 mcg PO QAM 08/01/22 08/01/22 History trazodone 50 mg tablet 50 mg PO HS 08/01/22 08/01/22 History Patient History Medical History TERRANCE (generalized anxiety disorder) Hypothyroidism MDD (major depressive disorder) Obesity (BMI 30-39.9) Surgical History (Updated 08/01/22 @ 12:44 by Lorelei Song PA-C) History of partial hysterectomy Hx of breast reduction, elective Hx of colonoscopy Hx of gastric bypass Family History (Updated 08/01/22 @ 12:45 by Lorelei Song PA-C) Father Diabetes Hypertension Cancer esophageal cancer Sister Diabetes Social History Smoking Status: Never smoker Hx Alcohol Use: No Hx Substance Use: No Preferred Language: Lao Communication Ability: Effective Coating Operator Required: No Beliefs That Will Affect Care: None Current Living Situation: Spouse Other Information That Helps Us Care for You: No Feels Safe at Home: Yes Safety Concerns: Feels Safe At This Time Assistive Devices: None Physical Exam Physical Exam: On exam she is lying in bed. She is cooperative. She has +5-5 bilateral plantarflexion dorsiflexion quadriceps. Sensory appears to be intact bilaterally. There is marked tension signs with contralateral signs straight leg raising. Results & Data Vital Signs (Past 12 Hours) Vital Signs Temp Pulse Resp BP Pulse Ox O2 Del Method 08/02/22 08:00 Room Air 08/02/22 08:32 116/69 08/02/22 07:40 36.4 C L 61 16 100/63 95 Room Air
[2022-08-02] MEDS: LIDOCAINE 5% 1 PATCH TD SCH (15:35)
[2022-08-02] MEDS: DOCUSATE SODIUM 100 MG CAP PO SCH ×2 (15:36→20:17)
--- NOTE | 2022-08-02 16:29 | Hospitalist Progress Note ---
Date of Service August 02, 2022 Assessment & Plan (1) Back pain: Plan: Pt with debilitating back pain Pt received dexamethasone 10 mg IV x 1 in the ER along with toradol, morphine sulfate, dilaudid, cyclobenzaprine - MRI spine-degenerative changes are seen with prominent disc bulge at L3-L4. There is moderate canal or neural foraminal stenosis. - Ortho spine consulted-appreciate recs. Recommending conservative management through the weekend with pain control and PT. If that fails will be undergoing surgery on Saturday 08/05. Consider making NPO the night before, holding anticoagulants if surgery anticipated. -Pt started on gabapentin 100mg TID with her home cymbalta 90mg for pain. Lidocaine patches ordered for topical relief as well with PRN tylenol, Dilaudid, baclofen. - PT/OT (2) Hypothyroidism: Plan: - Continue levothyroxine 112 mcg daily (3) MDD (major depressive disorder): Plan: On wellbutrin, cymbalta (4) TERRANCE (generalized anxiety disorder): Plan: - Cont wellbutrin 150 mg BID, cymbalta 90 mg daily (5) Obesity (BMI 30-39.9): Plan: - S/p gastric bypass surgery - will hold off on NSAIDs and chronic steroid use in this setting. DVT ppx: heparin subq CODE: FULL code Dispo: conservative treatment over the next 2 days, if failure, surgery on 08/05. Admission and Anticipated Discharge Date Admission Date: August 01, 2022 Subjective Pt stated that she was much more comfortable than her day of admission. States she was able to participate in PT as she had just received dilaudid. Pt currently well controlled but she agrees that narcotics are not her extermination supervisor option for controlling the pain. States she was seen by ortho spine today. Review of Systems Review of Systems: All systems reviewed & are unremarkable except as noted in Subjective Physical Exam Physical Exam: General: Alert, oriented. No acute distress Skin: No noted rashes or bruises Psych: Appropriate mood and affect Neuro: able to move to her side, which she could not do befoe HEENT: NC/AT CV: RRR, Normal s1, s2. Resp: Breath sounds clear bilaterally, no increased effort of breathing. No crackles/rhonchi/rales. Abdomen: Soft, nontender, nondistended. Extremities: No edema in lower extremities bilaterally. Results & Data Results & Data Vital Signs (Past 12 Hours) Vital Signs Temp Pulse Resp BP Pulse Ox O2 Del Method 08/02/22 15:26 36.5 C 72 16 100/63 97 Room Air 08/02/22 08:00 Room Air 08/02/22 08:32 116/69 08/02/22 07:40 36.4 C L 61 16 100/63 95 Room Air
[2022-08-02] MEDS: traZODone HCL 50 MG TAB PO SCH (20:17)
[2022-08-02] MEDS: GABAPENTIN 100 MG CAP PO SCH (20:17)
[2022-08-02] MEDS: POLYETHYLENE (MIRALAX) 17 GM PACK PO PRN (20:22)
[2022-08-03] MEDS: LEVOTHYROXINE SODIUM 112 MCG TABLET PO SCH (05:53)
[2022-08-03 07:54] LABS: Basophils # (auto) 0.04 K/uL (0-0.2); Basophils % (auto) 1.2 %; Eosinophils # (auto) 0.06 K/uL (0-0.50); Eosinophils % (auto) 1.8 %; Hematocrit (blood only) 37.8 % (37.0-47.0); Hemoglobin 12.5 g/dl (12.0-16.0); Immature Granulocytes # (auto) 0.01 K/uL (0.01-0.20); Immature Granulocytes % (auto) 0.3 %; Lymphocytes # (auto) 1.29 K/uL (1.2-3.4); Lymphocytes % (auto) 39.4 %; Mean Corpuscular Hemoglobin 30.3 pg (25.0-34.0); Mean Corpuscular Hgb Conc 33.1 g/dL (32.0-36.0); Mean Corpuscular Volume 91.5 fL (80.0-100.0); Mean Platelet Volume 10.1 fL (9.4-12.4); Monocytes % (auto) 6.1 %; Neutrophils # (auto) 1.67 K/uL (1.40-6.50); Neutrophils % (auto) 51.2 %; Platelet Count 165 K/uL (130-400); RDW Coefficient of Variation 12.3 % (11.5-14.5); RDW Standard Deviation 40.8 fL (36.4-46.3); Red Blood Count 4.13 M/uL (4.20-5.40); White Blood Count 3.27 K/ul (4.8-10.8)
[2022-08-03 08:19] LABS: BUN Creatinine Ratio 18.5 (10-20); Calcium 9.5 mg/dl (8.6-10.3); Creatinine Clr Calc Pharmacy 49.6 ml/min; Est GFR (African American) 57.1 ml/min; Est GFR (Non-African American) 49.2 ml/min; Potassium 4.1 mmol/L (3.5-5.1)
--- NOTE | 2022-08-03 09:26 | Orthopedic Progress Note ---
Date of Service August 03, 2022 Assessment & Plan (1) Lumbar disc herniation with radiculopathy: Plan: At this time she demonstrates progressive neurologic deficit requiring IV narcotic medication and would be a candidate for surgical intervention. Would require lumbar decompression and discectomy of L3-L4. Risk benefits pros cons alternatives were outlined detail. We will reassess her tomorrow if she continues to decline we will plan for surgery on Friday. Patient stands and agrees. Admission and Anticipated Discharge Date Admission Date: August 01, 2022 Subjective Patient continues to have significant left leg pain and difficulties with ambulation. She is requiring IV narcotics to control her symptoms. Physical Exam Physical Exam: On exam is in the chair at bedside. She continues to demonstrate tension signs straight leg raising and difficulty with transfers and ambulation. Results & Data Vital Signs (Past 12 Hours) Vital Signs Temp Pulse Resp BP Pulse Ox O2 Del Method 08/03/22 07:29 36.5 C 57 L 16 118/77 100 Room Air
[2022-08-03] MEDS: DULoxetine HCL 30 MG CAP PO SCH (09:28)
[2022-08-03] MEDS: DULoxetine HCL 60 MG CAP PO SCH (09:28)
[2022-08-03] MEDS: buPROPion SR 150 MG TABCR PO SCH ×2 (09:28→20:19)
[2022-08-03] MEDS: GABAPENTIN 100 MG CAP PO SCH ×3 (09:29→20:21)
[2022-08-03] MEDS: HEPARIN SOD 5,000 UNIT/0.5 ML VIAL SQ SCH ×2 (09:29→20:44)
[2022-08-03] MEDS: DOCUSATE SODIUM 100 MG CAP PO SCH (09:30)
[2022-08-03] MEDS: LIDOCAINE 5% 1 PATCH TD SCH (09:31)
[2022-08-03] MEDS: HYDROmorphone INJ 0.5 MG/0.5 ML SYR IV PRN (09:34)
--- NOTE | 2022-08-03 16:09 | Hospitalist Progress Note ---
Date of Service August 03, 2022 Assessment & Plan (1) Back pain: (2) Hypothyroidism: (3) MDD (major depressive disorder): (4) TERRANCE (generalized anxiety disorder): (5) Obesity (BMI 30-39.9): Plan: Plan 62yoF with debilitating back pain in the setting of a herniated lumbar desk with spinal stenosis. Herniated disc/Spinal stenosis Pt presented with debilitating back pain MRI spine with the following impression: "Multilevel degenerative changes are seen with prominent disc bulge at L3-L4. There is moderate canal or neural foraminal stenosis Ortho spine consulted-appreciate recs. Recommending conservative management through the weekend with pain control and PT. If that fails, pt will be undergoing surgery on Saturday 08/05. Consider making NPO the night before, holding anticoagulants if surgery anticipated. Continue with gabapentin 100mg TID with her home cymbalta 90mg scheduled. IV dilaudid, po baclofen, tylenol ordered prn for additional pain control. Lidocaine patches ordered for topical relief as well. Given Hx of gastric bypass would not recommend further doses of steroids or NSAIDs at this time. PT/OT Hypothyroidism Continue levothyroxine 112 mcg daily MDD/TERRANCE On wellbutrin, cymbalta BMI 31, s/p gastric bypass As noted above, will hold off on further doses of steroids or NSAIDs at this time in this setting. Diet: HH, make NPO after midnight the day before her surgery. DVT ppx: heparin subq (hold day before surgery) CODE: FULL code Dispo: conservative treatment with plan for surgery on 08/05 if conservative management fails. Admission and Anticipated Discharge Date Admission Date: August 01, 2022 Subjective Pt seen today, states that her pain is the same. Noted no difference with the addition of gabapentin to her home cymbalta and the lidocaine patches. States she still requires the narcotics to help with her pain. Trying to do PT. States that she was seen by ortho spine. Review of Systems Review of Systems: All systems reviewed & are unremarkable except as noted in Subjective Physical Exam Physical Exam: General: Alert, oriented. No acute distress Skin: No noted rashes or bruises Psych: Appropriate mood and affect Neuro: moves with some difficulty HEENT: NC/AT CV: RRR, Normal s1, s2. Resp: Breath sounds clear bilaterally, no increased effort of breathing. No crackles/rhonchi/rales. Abdomen: Soft, nontender, nondistended. Extremities: No edema in lower extremities bilaterally. Results & Data Results & Data Vital Signs (Past 12 Hours) Vital Signs Temp Pulse Pulse Resp BP Pulse Ox O2 Del Method 08/03/22 15:36 36.5 C 63 16 96/63 L 95 Room Air 08/03/22 07:29 36.5 C 57 L 16 118/77 100 Room Air
[2022-08-03] MEDS ORDERED: bisacodyL 10 MG SUPP PR STA (20:21)
[2022-08-03] MEDS: DOCUSATE SODIUM/SENNA 50/8.6MG TAB PO SCH (21:24)
[2022-08-03] MEDS: POLYETHYLENE (MIRALAX) 17 GM PACK PO PRN (21:24)
[2022-08-03] MEDS: traZODone HCL 50 MG TAB PO SCH (22:49)
[2022-08-04] MEDS: LEVOTHYROXINE SODIUM 112 MCG TABLET PO SCH (05:50)
[2022-08-04 07:31] LABS: Basophils # (auto) 0.04 K/uL (0-0.2); Basophils % (auto) 1.2 %; Eosinophils # (auto) 0.06 K/uL (0-0.50); Eosinophils % (auto) 1.9 %; Hematocrit (blood only) 36.7 % (37.0-47.0); Hemoglobin 12.2 g/dl (12.0-16.0); Immature Granulocytes # (auto) 0.01 K/uL (0.01-0.20); Immature Granulocytes % (auto) 0.3 %; Lymphocytes # (auto) 1.06 K/uL (1.2-3.4); Lymphocytes % (auto) 32.9 %; Mean Corpuscular Hemoglobin 30.4 pg (25.0-34.0); Mean Corpuscular Hgb Conc 33.2 g/dL (32.0-36.0); Mean Corpuscular Volume 91.5 fL (80.0-100.0); Monocytes # (auto) 0.24 K/uL (0.11-0.59); Monocytes % (auto) 7.5 %; Neutrophils # (auto) 1.81 K/uL (1.40-6.50); Neutrophils % (auto) 56.2 %; Platelet Count 166 K/uL (130-400); RDW Coefficient of Variation 12.1 % (11.5-14.5); RDW Standard Deviation 40.9 fL (36.4-46.3); Red Blood Count 4.01 M/uL (4.20-5.40); White Blood Count 3.22 K/ul (4.8-10.8)
[2022-08-04 07:52] LABS: BUN Creatinine Ratio 16.1 (10-20); Calcium 9.5 mg/dl (8.6-10.3); Creatinine Clr Calc Pharmacy 52.7 ml/min; Est GFR (African American) 61.4 ml/min; Potassium 4.2 mmol/L (3.5-5.1)
--- NOTE | 2022-08-04 08:01 | Orthopedic Progress Note ---
Date of Service August 04, 2022 Assessment & Plan (1) Lumbar disc herniation with radiculopathy: Plan: I have discussed both nonoperative and operative options with Tanya this morning. She would like to proceed with surgical intervention tomorrow. Surgery would be in the form of a lumbar laminectomy L3-4 on the left. All questions have been answered in detail. Heparin will be held tonight. N.p.o. after midnight. Admission and Anticipated Discharge Date Admission Date: August 01, 2022 Subjective Tanya is still having pain and paresthesias rating down the left lower extremity. She is requiring both oral and IV narcotics for pain control. She would like to pursue surgical intervention tomorrow in the form of a lumbar laminectomy L3-4 on the left. Review of Systems Review of Systems: All systems reviewed & are unremarkable except as noted in HPI & below Physical Exam Physical Exam: Ambling the hallways. In moderate distress Strength unchanged bilateral lower extremities Results & Data Vital Signs (Past 12 Hours) Vital Signs Temp Pulse Resp BP Pulse Ox O2 Del Method 08/04/22 07:03 36.5 C 65 16 95/56 L 95 Room Air 08/03/22 20:53 36.7 C 63 16 114/73 97 Room Air
[2022-08-04] MEDS: buPROPion SR 150 MG TABCR PO SCH ×2 (08:04→20:32)
[2022-08-04] MEDS: GABAPENTIN 100 MG CAP PO SCH ×3 (08:04→20:32)
[2022-08-04] MEDS: DULoxetine HCL 30 MG CAP PO SCH (08:04)
[2022-08-04] MEDS: DOCUSATE SODIUM/SENNA 50/8.6MG TAB PO SCH ×2 (08:04→20:32)
[2022-08-04] MEDS: DULoxetine HCL 60 MG CAP PO SCH (08:04)
[2022-08-04] MEDS: HEPARIN SOD 5,000 UNIT/0.5 ML VIAL SQ SCH (09:00)
[2022-08-04] MEDS: LIDOCAINE 5% 1 PATCH TD SCH (09:01)
[2022-08-04] MEDS: traZODone HCL 50 MG TAB PO SCH (20:33)
--- NOTE | 2022-08-04 21:43 | Hospitalist Progress Note ---
Date of Service August 04, 2022 Assessment & Plan (1) Back pain: (2) Hypothyroidism: (3) MDD (major depressive disorder): (4) TERRANCE (generalized anxiety disorder): (5) Obesity (BMI 30-39.9): Plan: Plan 62yoF with debilitating back pain in the setting of a herniated lumbar desk with spinal stenosis. Herniated disc/Spinal stenosis Pt presented with debilitating back pain MRI spine with the following impression: "Multilevel degenerative changes are seen with prominent disc bulge at L3-L4. There is moderate canal or neural foraminal stenosis Ortho spine consulted-appreciate recs. Recommending conservative management through the weekend with pain control and PT. If that fails, pt will be undergoing surgery on Saturday 08/05. Continue with gabapentin 100mg TID with her home cymbalta 90mg scheduled. IV dilaudid, po baclofen, tylenol ordered prn for additional pain control. Lidocaine patches ordered for topical relief as well. Given Hx of gastric bypass would not recommend further doses of steroids or NSAIDs at this time. PT/OT Hypothyroidism Continue levothyroxine 112 mcg daily MDD/TERRANCE On wellbutrin, cymbalta BMI 31, s/p gastric bypass As noted above, will hold off on further doses of steroids or NSAIDs at this time in this setting. Diet: HH, NPO after midnight the day before her surgery. DVT ppx: heparin subq (hold day before surgery) CODE: FULL code Dispo: conservative treatment with plan for surgery on 08/05 if conservative management fails. Admission and Anticipated Discharge Date Admission Date: August 01, 2022 Subjective Pt states that she was feeling better at the time she was seen. Was able to shower on her own today. Anticipating surgery tomorrow. Review of Systems Review of Systems: All systems reviewed & are unremarkable except as noted in Subjective Physical Exam Physical Exam: General: Alert, oriented. No acute distress Skin: No noted rashes or bruises Psych: Appropriate mood and affect Neuro: moves with some difficulty HEENT: NC/AT CV: RRR, Normal s1, s2. Resp: Breath sounds clear bilaterally, no increased effort of breathing. No crackles/rhonchi/rales. Abdomen: Soft, nontender, nondistended. Extremities: No edema in lower extremities bilaterally. Results & Data Results & Data Vital Signs (Past 12 Hours) Vital Signs Temp Pulse Resp BP Pulse Ox O2 Del Method 08/04/22 20:35 36.7 C 75 16 101/64 96 Room Air 08/04/22 15:09 36.7 C 78 89/50 L 95 Room Air
[2022-08-05] MEDS: LEVOTHYROXINE SODIUM 112 MCG TABLET PO SCH (05:57)
[2022-08-05] MEDS: DOCUSATE SODIUM/SENNA 50/8.6MG TAB PO SCH ×2 (07:47→20:13)
[2022-08-05] MEDS: buPROPion SR 150 MG TABCR PO SCH ×2 (07:47→20:13)
[2022-08-05] MEDS: DULoxetine HCL 30 MG CAP PO SCH (07:47)
[2022-08-05] MEDS: DULoxetine HCL 60 MG CAP PO SCH (07:48)
[2022-08-05] MEDS: GABAPENTIN 100 MG CAP PO SCH ×3 (07:48→20:14)
[2022-08-05] MEDS: LIDOCAINE 5% 1 PATCH TD SCH (07:48)
[2022-08-05 07:49] LABS: Basophils # (auto) 0.03 K/uL (0-0.2); Basophils % (auto) 0.9 %; Eosinophils # (auto) 0.07 K/uL (0-0.50); Eosinophils % (auto) 2.1 %; Hematocrit (blood only) 37.7 % (37.0-47.0); Hemoglobin 12.3 g/dl (12.0-16.0); Immature Granulocytes # (auto) 0.02 K/uL (0.01-0.20); Immature Granulocytes % (auto) 0.6 %; Lymphocytes # (auto) 0.91 K/uL (1.2-3.4); Lymphocytes % (auto) 26.9 %; Mean Corpuscular Hemoglobin 30.2 pg (25.0-34.0); Mean Corpuscular Hgb Conc 32.6 g/dL (32.0-36.0); Mean Corpuscular Volume 92.6 fL (80.0-100.0); Mean Platelet Volume 9.7 fL (9.4-12.4); Monocytes # (auto) 0.26 K/uL (0.11-0.59); Monocytes % (auto) 7.7 %; Neutrophils # (auto) 2.09 K/uL (1.40-6.50); Neutrophils % (auto) 61.8 %; Platelet Count 181 K/uL (130-400); RDW Coefficient of Variation 12.4 % (11.5-14.5); RDW Standard Deviation 41.6 fL (36.4-46.3); Red Blood Count 4.07 M/uL (4.20-5.40); White Blood Count 3.38 K/ul (4.8-10.8)
[2022-08-05 08:10] LABS: BUN Creatinine Ratio 16.3 (10-20); Calcium 9.5 mg/dl (8.6-10.3); Creatinine Clr Calc Pharmacy 43.7 ml/min; Est GFR (Non-African American) 42.3 ml/min; Potassium 4.3 mmol/L (3.5-5.1)
[2022-08-05] MEDS ORDERED: SODIUM CHLORIDE 0.9% 1000ML 250 ML IV ONE (09:24)
[2022-08-05] MEDS: SODIUM CHLORIDE 0.9% 1000ML 1,000 ML IV SCH ×2 (10:47→20:10)
[2022-08-05] MEDS ORDERED: DEXAMETHASONE SOD INJ 4 MG/ML VIAL ONE ×3 (13:00→14:00)
[2022-08-05] MEDS ORDERED: ONDANSETRON INJ 2 MG/ML 2 ML VIAL ONE ×3 (13:00→14:01)
[2022-08-05] MEDS ORDERED: LIDOCAINE 2% 2 ML VIAL/AMP(20MG/ML) INFIL ONE ×4 (13:00→13:59)
[2022-08-05] MEDS ORDERED: GLYCOPYRROLATE 0.2 MG/ML VIAL ONE (13:01)
[2022-08-05] MEDS ORDERED: ROCURONIUM BROMIDE 10 MG/ML 5 ML VIAL IV ONE ×6 (13:01→13:59)
[2022-08-05] MEDS ORDERED: fentaNYL citrate PF 100 MCG/2 ML VIAL ONE (13:01)
[2022-08-05] MEDS ORDERED: MIDAZOLAM HCL 1 MG/ML 2ML VIAL ONE (13:01)
[2022-08-05] MEDS ORDERED: PROPOFOL IV EMULSION 10 MG/ML 20 ML VIAL IV ONE ×2 (13:01→13:57)
[2022-08-05] MEDS ORDERED: SCOPOLAMINE 1 MG TDSY TD ONE ×2 (14:40)
[2022-08-05] MEDS ORDERED: ePHEDrine sulfate 50 MG/ML AMP IV PRN (14:40)
[2022-08-05] MEDS ORDERED: ATROPINE SULFATE 0.1 MG/ML 10ML SYR IV PRN (14:40)
[2022-08-05] MEDS ORDERED: HYDROmorphone INJ 2 MG/ML SYR/VIAL IV PRN (14:40)
[2022-08-05] MEDS ORDERED: ONDANSETRON INJ 2 MG/ML 2 ML VIAL IV PRN (14:40)
[2022-08-05] MEDS ORDERED: PROMETHAZINE HCL 6.25 MG in SODIUM CHLORIDE 0.9% 50 ML IV PRN (14:40)
--- NOTE | 2022-08-05 14:40 | Anesthesiology Consultation ---
Date of Service August 05, 2022 Assessment & Plan Chart Review Chart Review: Acceptable Risk for Surgery and Patient NOT seen in Pre Admission Testing Consults Requested none ASA ASA2 Proposed Anesthesia Anesthesia Type: General Risk / Benefits Reviewed With: PT / POA / Parent / Guardian, Accepts Plan and Informed Consent Obtained History Surgery Operation Date: 08/05/22 07:00 Proposed Procedures p Lumbar Deocmpression L3-L4 Possible Coflex - Aston Pak DO Height/Weight Height: 5 ft 3 in Weight: 79.5 kg Allergies Allergy/AdvReac Type Severity Reaction Status Date / Time codeine Allergy Intermediate HIVES Verified 08/01/22 09:35 Medications Home Medications Medication Instructions Recorded Confirmed Last Taken bupropion HCl 150 mg tablet,12 hr 150 mg PO BID 08/01/22 08/01/22 08/01/22 sustained-release duloxetine 30 mg capsule,delayed See Rx Instructions .Route .COMPLEX 08/01/22 08/01/22 08/01/22 release duloxetine 60 mg capsule,delayed See Rx Instructions .Route .COMPLEX 08/01/22 08/01/22 08/01/22 release levothyroxine 112 mcg tablet 112 mcg PO QAM 08/01/22 08/01/22 08/01/22 trazodone 50 mg tablet 50 mg PO HS 08/01/22 08/01/22 07/31/22 Active Medications Generic Name Dose Route Start Last Admin Trade Name Freq PRN Reason Stop Dose Admin Acetaminophen 650 mg 08/01/22 17:16 08/01/22 20:41 Acetaminophen 325 Mg Tab PO 08/31/22 17:15 650 mg Q4H PRN Administration Mild Pain (Scale 1,2,3,4 ) Bupropion HCl 150 mg 08/01/22 21:00 08/05/22 07:47 Bupropion Sr 150 Mg Tabcr PO 08/31/22 20:59 150 mg BID NETTA Administration Duloxetine HCl 30 mg 08/02/22 09:00 08/05/22 07:47 Duloxetine Hcl 30 Mg Cap PO 09/01/22 08:59 30 mg QAM NETTA Administration Duloxetine HCl 60 mg 08/02/22 09:00 08/05/22 07:48 Duloxetine Hcl 60 Mg Cap PO 09/01/22 08:59 60 mg QAM NETTA Administration Gabapentin 100 mg 08/02/22 21:00 08/05/22 07:48 Gabapentin 100 Mg Cap PO 09/01/22 20:59 100 mg TID NETTA Administration Heparin Sodium (Porcine) 5,000 units 08/01/22 21:00 08/04/22 09:00 Heparin Sod 5,000 Unit/0.5 Ml Vial SQ 08/31/22 20:59 5,000 units Q12 NETTA Administration Hydromorphone HCl 0.5 mg 08/01/22 17:16 08/03/22 09:34 Hydromorphone Inj 0.5 Mg/0.5 Ml Syr IV 08/15/22 17:15 0.5 mg Q6H PRN Administration Pain, severe pain rating 8-10 Sodium Chloride 1,000 mls @ 125 mls/hr 08/05/22 09:30 08/05/22 10:47 Nss 1000ml IV 08/06/22 09:29 125 mls/hr .Q8H NETTA Administration Levothyroxine Sodium 112 mcg 08/02/22 06:30 08/05/22 05:57 Levothyroxine Sodium 112 Mcg Tablet PO 09/01/22 06:29 112 mcg DAILYBB NETTA Administration Lidocaine 1 patch 08/02/22 14:30 08/05/22 07:48 Lidocaine 5% 1 Patch TD 09/01/22 14:29 1 patch QAM NETTA Administration Miscellaneous 1 each 08/02/22 21:00 08/04/22 20:33 Remove Lidoderm Patch N/A 09/01/22 20:59 1 each DAILY@2100 NETTA Administration Polyethylene Glycol 17 gm 08/02/22 14:39 08/03/22 21:24 Polyethylene (Miralax) 17 Gm Pack PO 09/01/22 14:38 17 gm DAILY PRN Administration Constipation Senna/Docusate Sodium 1 tab 08/03/22 20:25 08/05/22 07:47 Docusate Sodium/Senna 50/8.6mg Tab PO 09/02/22 20:24 1 tab BID NETTA Administration Trazodone HCl 50 mg 08/01/22 21:00 08/04/22 20:33 Trazodone Hcl 50 Mg Tab PO 08/31/22 20:59 50 mg HS NETTA Administration NPO Date Last Intake of Fluids: 08/04/22 Time Last Intake of Fluids: 22:00 Date Last Intake of Solids: 08/04/22 Time Last Intake of Solids: 22:00 Past Medical History Medical History TERRANCE (generalized anxiety disorder) Hypothyroidism MDD (major depressive disorder) Obesity (BMI 30-39.9) Exercise / Class Metabolic Activity II 4-5 Yardwork/Stairs/Walk up hill Past Family History Family History (Updated 08/01/22 @ 12:45 by Lorelei Song PA-C) Father Diabetes Hypertension Cancer esophageal cancer Sister Diabetes Past Surgical History Surgical History (Updated 08/01/22 @ 12:44 by Lorelei Song PA-C) History of partial hysterectomy Hx of breast reduction, elective Hx of colonoscopy Hx of gastric bypass Past Anesthesia History No Hx of Anesthesia Complications and No Family Hx of Anesthesia Complications History of PONV No Hx of PONV and No Hx of Motion Sickness Social History Smoking Status: Never smoker Hx Alcohol Use: No Hx Substance Use: No Physical Exam Vital Signs Last Vital Signs Temp 36.9 C 08/05/22 14:17 Pulse 71 08/05/22 14:17 Resp 18 08/05/22 14:17 BP 125/66 08/05/22 14:17 Pulse Ox 97 08/05/22 14:17 O2 Del Method Room Air 08/05/22 14:17 O2 Flow Rate 3 08/01/22 20:41 ENMT Mouth: no dentition abnormality Thyromental Distance: > or= 3.5 Finger Breadths Mallampati Class: II Neck normal visual inspection Respiratory normal respiratory effort Auscultation: lungs clear to auscultation bilaterally Cardiovascular Rate/Rhythm: regular rate and regular rhythm Psychiatric Orientation: alert Testing Laboratory Results 08/05/22 07:34 08/05/22 07:34 Urine Color Yellow 08/01/22 15:39 Urine Appearance Clear (Clear) 08/01/22 15:39 Urine pH 7.5 (4.5-7.5) 08/01/22 15:39 Ur Specific [place] 1.021 (1.000-1.030) 08/01/22 15:39 Urine Protein Negative (Negative) 08/01/22 15:39 Urine Glucose (UA) Negative (Negative) 08/01/22 15:39 Urine Ketones Negative (Negative) 08/01/22 15:39 Urine Nitrite Negative (Negative) 08/01/22 15:39 Ur Leukocyte Esterase Negative (Negative) 08/01/22 15:39
[2022-08-05] MEDS ORDERED: BUPIVACAINE/EPINEPHRINE 0.25% 1:200,000 30 ML VIAL ONE (14:52)
[2022-08-05] MEDS ORDERED: ceFAZolin 330 MG/ML 1 GM VIAL ONE (14:52)
--- NOTE | 2022-08-05 14:56 | History & Physical Bridge Note ---
Date of Service August 05, 2022 History & Physical Bridge Note I have examined the patient, reviewed the History & Physical and in the interval since the performance of the History & Physical I have noted the following changes of clinical significance: no changes noted Decompression possible Coflex L3-L4
[2022-08-05] MEDS ORDERED: ceFAZolin 2000MG 2,000 MG/15 ML SYR IV ONE (14:58)
[2022-08-05] MEDS ORDERED: ceFAZolin 2,000 MG/15 ML IV PUSH IV ONE (15:00)
[2022-08-05] MEDS ORDERED: FLOSEAL HEMOSTATIC MATRIX 10ML TOP ONE (15:14)
--- NOTE | 2022-08-05 16:12 | Hospitalist Progress Note ---
Date of Service August 05, 2022 Assessment & Plan (1) Back pain: (2) Hypothyroidism: (3) MDD (major depressive disorder): (4) TERRANCE (generalized anxiety disorder): (5) Obesity (BMI 30-39.9): Plan: Plan 62yoF with debilitating back pain in the setting of a herniated lumbar desk with spinal stenosis. Herniated disc/Spinal stenosis -MRI spine with the following impression: "Multilevel degenerative changes are seen with prominent disc bulge at L3-L4. There is moderate canal or neural foraminal stenosis --Appreciate orthopedics input Fall precautions PT OT Plan for lumbar decompression surgery today Pain control Continue gabapentin 100mg TID, also on Cymbalta PT/OT as able Chronic hypotension Continue gentle IV fluids Monitor BP Hypothyroidism Continue levothyroxine MDD/TERRANCE On Wellbutrin, Cymbalta Obesity BMI 31, s/p gastric bypass Avoid NSAIDs as able DVT Px: Heparin SQ on hold--due to Sx CODE STATUS: FULL code Admission and Anticipated Discharge Date Admission Date: August 01, 2022 Subjective Patient is seen and examined at bedside States having low back pain radiating down left lower extremity Plan for surgery today Denies any chest pain, dyspnea, dizziness, nausea, abdominal pain Family at bedside No other complaints Review of Systems Review of Systems: All systems reviewed & are unremarkable except as noted in Subjective Physical Exam Physical Exam: Physical Exam: Vitals signs as noted above General Appearance:Moderately built and nourished, no apparent distress Head: normocephalic, Atraumatic Eyes: normal inspection, EOMI Neck: supple, Trachea midline Respiratory/Chest: Normal breath sounds, CTA, No accessory muscle use Cardiovascular: S1, S2, No murmur Abdomen/GI:Soft, Non tender, Bowel sounds present Extremities/Musculoskeletal:normal inspection, no edema Neurologic/Psych:AAOX3, grossly no focal neurological deficits Skin: normal color, warm Results & Data Results & Data Vital Signs (Past 12 Hours) Vital Signs Temp Pulse Resp BP BP Pulse Ox O2 Del Method 08/05/22 14:17 36.9 C 71 18 125/66 97 Room Air 08/05/22 09:24 101/64 08/05/22 07:19 36.7 C 66 16 86/57 L 98 Room Air Laboratory Results Short CBC 08/05/22 Range/Units 07:34 WBC 3.38 L (4.8-10.8) K/ul Hgb 12.3 (12.0-16.0) g/dl Hct 37.7 (37.0-47.0) % Plt Count 181 (130-400) K/uL [facility] 08/05/22 07:34 Sodium 142 Potassium 4.3 Chloride 106 Carbon Dioxide 32 BUN 22 Creatinine 1.35 H Glucose 102 H Calcium 9.5
--- NOTE | 2022-08-05 16:38 | Operative Report ---
Post Operative Report Pre & Post Diagnosis Operation Date: 08/05/22 07:00 Pre-Op Diagnosis: Lumbar disc herniation with radiculopathy. Post-Op Diagnosis: Lumbar disc herniation with radiculopathy. I identified the patient and participated in the time-out.: Yes Procedure Operation Date: 08/05/22 07:00 Actual Procedures 1. Lumbar decompression with medial facetectomies and partial discectomy L3-L4. #2 placement of 14 mm Coflex L3-L4. Surgeon sAton Pak, DO Gas Scrubber Operator Roula Arriaga Estimated Blood Loss 10 Findings Consistent with Post-Op Diagnosis Specimens none Indications This is a 62-year-old female who presents above-mentioned diagnosis after failing course of nonoperative care and having steady decline in neurologic s tatus is here for the above-mentioned procedure. Description of Procedure Patient met with identified informed consent obtained. Patient was then taken to the operative suite underwent ablation placed in a prone position the [place] table top Ramin frame. All bony promises well-padded eyes inspected to ensure no external pressure placed upon the. This point lumbar spine was prepped and draped in normal sterile fashion. The assistance of fluoroscopy defy the L3-L4 disc base and midline incision was created around this region. Sharp dissection with the assistance of Bovie cautery to form down to and exposing the interlaminar space at L3-L4. Self-retaining tractors placed. Then performed a midline decompression excised the ligamentum flavum and on the left performed partial medial facetectomy expose a severely compressed traversing L4 nerve root. Was able to mobilize the root medially to address several massive loose fragments of free disc material. They removed their entirety. There is area was explored several times to ensure there is no loose fragments. A 14 mm Coflex was then tapped in position and crimped into place. Wound was copiously irrigated and a 10 round HARRIS drain inserted. Is then closed with 1 Vicryl to fascia 2-0 Vicryl subcutaneously and 4 Monocryl for final skin closure. Steri- Strips sterile dressing placed. Patient awakened taken to PACU in stable condition. Please note Roula Arriaga was present at the entire procedure and while the patient positioning complex course of the surgery and final skin closure. I attest to the content of the Intraoperative Record and any orders documented therein. Any exceptions are noted below.
[2022-08-05] MEDS: fentaNYL citrate PF 100 MCG/2 ML VIAL IV PRN ×2 (17:09→17:14)
[2022-08-05] MEDS: CHECK SCOPOLAMINE PATCH PLACEMENT SCH (17:48)
--- NOTE | 2022-08-05 18:18 | Fluoroscopy Report ---
INTRAOPERATIVE RADIOGRAPHS CLINICAL HISTORY: L3-L4 spinal decompression. Fluoro time: 10 seconds Ka,r: 5.00 mGy FINDINGS: 2 spot fluoroscopic views of the lumbar spine are presented. A Coflex device is seen betwee n the posterior elements at L3-L4. Alignment is preserved. IMPRESSION: Intraoperative images of the lumbar spine as above. Electronically signed by: Paul Echevarria M.D. 08/05/2022 6:16 PM
--- NOTE | 2022-08-05 18:48 | Anesthesiology Progress Note ---
Date of Service August 05, 2022 Anesthesia Post Procedure Vital Signs Vital Signs: Temp Pulse Pulse Resp BP BP Pulse Ox 08/05/22 18:12 36.5 C 77 18 103/57 L 98 08/05/22 17:44 36.6 C 69 16 114/71 100 08/05/22 17:30 36.5 C 65 15 114/64 94 08/05/22 17:20 64 19 136/63 95 08/05/22 17:10 69 17 129/71 99 08/05/22 17:00 81 16 107/86 100 08/05/22 16:52 36.6 C 91 H 21 130/76 98 08/05/22 14:17 36.9 C 71 18 125/66 97 08/05/22 09:24 101/64 08/05/22 07:19 36.7 C 66 16 86/57 L 98 08/04/22 20:35 36.7 C 75 16 101/64 96 O2 Del Method O2 Flow Rate 08/05/22 18:12 Room Air 08/05/22 17:44 Nasal Cannula 2 08/05/22 17:30 Nasal Cannula 2 08/05/22 17:20 Nasal Cannula 2 08/05/22 17:10 Room Air 08/05/22 17:00 Oxymask 10 08/05/22 16:52 Oxymask 10 08/05/22 14:17 Room Air 08/05/22 09:24 08/05/22 07:19 Room Air 08/04/22 20:35 Room Air Pain Intensity Bilateral Back: Pain Intensity: 2 Transfer of Care Handoff Completed per policy Notes Mental Status: alert / awake / arousable and participated in evaluation Patient Amnestic to Procedure: Yes Nausea / Vomiting: adequately controlled Pain: adequately controlled Airway Patency, RR, SpO2: stable & adequate BP & HR: stable & adequate Hydration State: stable & adequate Anesthetic Complications: no major complications apparent and Pt Satisfied with anesthetic care
[2022-08-05] MEDS: HYDROmorphone INJ 0.5 MG/0.5 ML SYR IV PRN (20:01)
[2022-08-05] MEDS: traZODone HCL 50 MG TAB PO SCH (20:14)
[2022-08-06] MEDS: CHECK SCOPOLAMINE PATCH PLACEMENT SCH ×3 (00:05→15:02)
[2022-08-06] MEDS: SODIUM CHLORIDE 0.9% 1000ML 1,000 ML IV SCH (05:26)
[2022-08-06] MEDS: LEVOTHYROXINE SODIUM 112 MCG TABLET PO SCH (05:27)
[2022-08-06 06:07] LABS: Hematocrit (blood only) 34.4 % (37.0-47.0); Hemoglobin 11.3 g/dl (12.0-16.0); Mean Corpuscular Hemoglobin 30.8 pg (25.0-34.0); Mean Corpuscular Hgb Conc 32.8 g/dL (32.0-36.0); Mean Corpuscular Volume 93.7 fL (80.0-100.0); Mean Platelet Volume 9.8 fL (9.4-12.4); Platelet Count 161 K/uL (130-400); RDW Coefficient of Variation 12.2 % (11.5-14.5); RDW Standard Deviation 41.9 fL (36.4-46.3); Red Blood Count 3.67 M/uL (4.20-5.40); White Blood Count 4.74 K/ul (4.8-10.8)
[2022-08-06 06:25] LABS: BUN Creatinine Ratio 14.3 (10-20); Calcium 8.8 mg/dl (8.6-10.3); Creatinine Clr Calc Pharmacy 60.2 ml/min; Est GFR (African American) 72.2 ml/min; Est GFR (Non-African American) 62.3 ml/min; Magnesium 1.9 mg/dl (1.7-2.4); Potassium 4.2 mmol/L (3.5-5.1)
[2022-08-06] MEDS: ACETAMINOPHEN 325 MG TAB PO PRN ×2 (08:36→12:55)
[2022-08-06] MEDS: buPROPion SR 150 MG TABCR PO SCH (08:37)
[2022-08-06] MEDS: DULoxetine HCL 30 MG CAP PO SCH (08:37)
[2022-08-06] MEDS: GABAPENTIN 100 MG CAP PO SCH ×2 (08:37→12:54)
[2022-08-06] MEDS: DULoxetine HCL 60 MG CAP PO SCH (08:38)
[2022-08-06] MEDS: DOCUSATE SODIUM/SENNA 50/8.6MG TAB PO SCH (08:39)
[2022-08-06] MEDS: LIDOCAINE 5% 1 PATCH TD SCH (08:39)
--- NOTE | 2022-08-06 11:45 | Orthopedic Progress Note ---
Date of Service August 06, 2022 Assessment & Plan (1) Lumbar disc herniation with radiculopathy: Plan: Patient is doing nicely postoperatively. HARRIS drain decreasing appropriately. Excellent strength testing. Subsequently a candidate for discharge home when cleared by medicine. We will follow her up in 2 weeks. Admission and Anticipated Discharge Date Admission Date: August 01, 2022 Subjective Patient's leg pain is markedly improved. Back pain controlled. Physical Exam Physical Exam: Patient appears comfortable bed. Discussing the testing. Results & Data Vital Signs (Past 12 Hours) Vital Signs Temp Pulse Resp BP Pulse Ox O2 Del Method O2 Flow Rate 08/06/22 07:16 36.7 C 68 17 103/67 97 Room Air 08/06/22 02:43 36.3 C L 65 16 92/56 L 98 Nasal Cannula 2
--- NOTE | 2022-08-06 12:23 | Hospitalist Progress Note ---
Date of Service August 06, 2022 Assessment & Plan (1) Back pain: (2) Hypothyroidism: (3) MDD (major depressive disorder): (4) TERRANCE (generalized anxiety disorder): (5) Obesity (BMI 30-39.9): Plan: Plan 62yoF with debilitating back pain in the setting of a herniated lumbar desk with spinal stenosis. Herniated disc/Spinal stenosis -MRI spine with the following impression: "Multilevel degenerative changes are seen with prominent disc bulge at L3-L4. There is moderate canal or neural foraminal stenosis -S/P Lumbar decompression with medial facetectomies and partial discectomy L3-L4. #2 placement of 14 mm Coflex L3-L4. By Dr. Pak on 08/05/2022 --Appreciate orthopedics input Fall precautions PT OT Plan for lumbar decompression surgery today Pain control Continue gabapentin 100mg TID, also on Cymbalta PT/OT Advised to follow-up with PCP, orthopedics upon discharge Chronic hypotension Continue gentle IV fluids Monitor BP Hypothyroidism Continue levothyroxine MDD/TERRANCE On Wellbutrin, Cymbalta Obesity BMI 31, s/p gastric bypass Avoid NSAIDs as able DVT Px: Heparin SQ on hold--due to Sx CODE STATUS: FULL code Admission and Anticipated Discharge Date Admission Date: August 01, 2022 Subjective Patient is seen and examined at bedside Back pain at surgical site is controlled Offers no new complaints Denies any chest pain, dyspnea, dizziness, nausea, abdominal pain Plan to be discharged home today if does well with PT Review of Systems Review of Systems: All systems reviewed & are unremarkable except as noted in Subjective Physical Exam Physical Exam: Physical Exam: Vitals signs as noted above General Appearance:Moderately built and nourished, no apparent distress Head: normocephalic, Atraumatic Eyes: normal inspection, EOMI Neck: supple, Trachea midline Respiratory/Chest: Normal breath sounds, CTA, No accessory muscle use Cardiovascular: S1, S2, No murmur Abdomen/GI:Soft, Non tender, Bowel sounds present Extremities/Musculoskeletal:normal inspection, no edema Neurologic/Psych:AAOX3, grossly no focal neurological deficits Skin: normal color, warm Results & Data Results & Data Vital Signs (Past 12 Hours) Vital Signs Temp Pulse Resp BP Pulse Ox O2 Del Method O2 Flow Rate 08/06/22 07:16 36.7 C 68 17 103/67 97 Room Air 08/06/22 02:43 36.3 C L 65 16 92/56 L 98 Nasal Cannula 2 Laboratory Results Short CBC 08/06/22 Range/Units 05:53 WBC 4.74 L (4.8-10.8) K/ul Hgb 11.3 L (12.0-16.0) g/dl Hct 34.4 L (37.0-47.0) % Plt Count 161 (130-400) K/uL BMP 08/06/22 05:53 Sodium 138 Potassium 4.2 Chloride 106 Carbon Dioxide 28 BUN 14 Creatinine 0.98 D Glucose 95 Calcium 8.8
--- NOTE | 2022-08-06 15:22 | Discharge Summary ---
Date of Service August 06, 2022 Admission HPI Per Admitting Provider This is 62 yo F with PMhx of MDD, TERRANCE, CKD, Hypothyroidism, gastric bypass surgery, GERD, who presents with worsening back pain x 5 days. She reports recently getting a new puppy; She was sitting on the floor Friday wi th the dog and reached for something and felt a pop in her left lower back. She was using tylenol, aleve, salonpas heat pads, ice, and thought it was getting better. Yesterday again she felt her back pop when she was sitting on the sofa and went to stretch/get up and had horrible pain in her left side of her lower back which radiates down the back of her left leg, as well as the front of her left groin region. She was having difficulty getting into bed, and was able to walk but was in terrible amount of pain. Pt states was unable to control the pain at home and had her bring her to the ER today. Pt reports this is one of the worst pains she has ever felt. Denies numbness in her groin, denies incontinence. Last BM was yesterday. She was able to take her routine home medications this morning. No previous back surgery. Reports back has gone out of place about 3 times in the past month but does not see a chiropractor or specifically does any stretching or exercise at home. She just "waits it out" until things go back into place themselves and uses the above listed alleviating factors to help. Her Kody is present at bedside. Admission Exam Per Admitting Provider General: awake, alert, no apparent distress, appears fatigued, + comfortable, + obese with BMI 31.0 Head: Normocephalic, atraumatic ENT: PERRL, EOMI, no pharyngeal exudate, mucous membranes moist Chest: Clear to auscultation, on 2L via NC (does not wear at home), no adventitious breath sounds Cardiac: Regular rate and rhythm, no murmur, no JVD, normal peripheral pulses, good capillary refill Abdominal: NABS x 4 quadrants, soft, nondistended, nontender to palpation, no rebound or guarding Extremities: Normal inspection, no peripheral edema or erythema, calfs nontender to palpation Psych: Normal mood and affect Neuro: AAO x 3, strength intact bilaterally and rated 5/5, no motor deficits, speech is clear, no peripheral sensory deficits Principal Diagnosis Lumbar disc herniation with radiculopathy and progressive motor deficit Discharge Data Allergies Allergy/AdvReac Type Severity Reaction Status Date / Time codeine Allergy Intermediate HIVES Verified 08/01/22 09:35 Consultations 08/01/22 11:50 ED Decision to Admit Stat 08/01/22 18:23 Consult Orthopedic Spine Surgery Routine Procedures Performed Operation Date: 08/05/22 07:00 Actual Procedures p Lumbar Deocmpression L3-L4 with Coflex - Aston Pak DO Ordered Studies 08/01/22 08:52 MR lumbar spine wo con Stat 08/05/22 FL lumbar spine 2-3V Routine Laboratory Results WBC 4.74 K/ul (4.8-10.8) L 08/06/22 05:53 RBC 3.67 M/uL (4.20-5.40) L 08/06/22 05:53 Hgb 11.3 g/dl (12.0-16.0) L 08/06/22 05:53 Hct 34.4 % (37.0-47.0) L 08/06/22 05:53 MCV 93.7 fL (80.0-100.0) 08/06/22 05:53 MCH 30.8 pg (25.0-34.0) 08/06/22 05:53 MCHC 32.8 g/dL (32.0-36.0) 08/06/22 05:53 RDW Std Deviation 41.9 fL (36.4-46.3) 08/06/22 05:53 RDW Coeff of Chris 12.2 % (11.5-14.5) 08/06/22 05:53 Plt Count 161 K/uL (130-400) 08/06/22 05:53 MPV 9.8 fL (9.4-12.4) 08/06/22 05:53 Immature Gran % (Auto) 0.6 % 08/05/22 07:34 Neut % (Auto) 61.8 % 08/05/22 07:34 Lymph % (Auto) 26.9 % 08/05/22 07:34 Howard % (Auto) 7.7 % 08/05/22 07:34 Eos % (Auto) 2.1 % 08/05/22 07:34 Baso % (Auto) 0.9 % 08/05/22 07:34 Neut # (Auto) 2.09 K/uL (1.40-6.50) 08/05/22 07:34 Lymph # (Auto) 0.91 K/uL (1.2-3.4) L 08/05/22 07:34 Howard # (Auto) 0.26 K/uL (0.11-0.59) 08/05/22 07:34 Eos # (Auto) 0.07 K/uL (0-0.50) 08/05/22 07:34 Baso # (Auto) 0.03 K/uL (0-0.2) 08/05/22 07:34 Immature Gran # (Auto) 0.02 K/uL (0.01-0.20) 08/05/22 07:34 Sodium 138 mmol/L (136-145) 08/06/22 05:53 Potassium 4.2 mmol/L (3.5-5.1) 08/06/22 05:53 Chloride 106 mmol/L (98-107) 08/06/22 05:53 Carbon Dioxide 28 mmol/L (21-32) 08/06/22 05:53 Anion Gap 4 (3-11) 08/06/22 05:53 BUN 14 mg/dl (6-23) 08/06/22 05:53 Creatinine 0.98 mg/dl (0.6-1.2) D 08/06/22 05:53 Est Cr Clr Drug Dosing 60.2 ml/min 08/06/22 05:53 Est GFR ( Amer) 72.2 ml/min 08/06/22 05:53 Est GFR (Non-Af Amer) 62.3 ml/min 08/06/22 05:53 BUN/Creatinine Ratio 14.3 (10-20) 08/06/22 05:53 Glucose 95 mg/dl (70-99(Fasting)) 08/06/22 05:53 Calcium 8.8 mg/dl (8.6-10.3) 08/06/22 05:53 Magnesium 1.9 mg/dl (1.7-2.4) 08/06/22 05:53 Urine Color Yellow 08/01/22 15:39 Urine Appearance Clear (Clear) 08/01/22 15:39 Urine pH 7.5 (4.5-7.5) 08/01/22 15:39 Ur Specific [place] 1.021 (1.000-1.030) 08/01/22 15:39 Urine Protein Negative (Negative) 08/01/22 15:39 Urine Glucose (UA) Negative (Negative) 08/01/22 15:39 Urine Ketones Negative (Negative) 08/01/22 15:39 Urine Blood Negative (Negative) 08/01/22 15:39 Urine Nitrite Negative (Negative) 08/01/22 15:39 Urine Bilirubin Negative (Negative) 08/01/22 15:39 Urine Urobilinogen Negative (Negative) 08/01/22 15:39 Ur Leukocyte Esterase Negative (Negative) 08/01/22 15:39 SARS-CoV-2, RNA, NAAT NEGATIVE (NEGATIVE) 08/01/22 11:54 Impressions Lumbar Spine MRI 08/01/22 08:52 MR lumbar spine wo con CLINICAL HISTORY: left back pain, left sciatica TECHNIQUE: Multiplanar sequences through the lumbar spine were obtained, without intravenous contrast. Comparison: None available at the time of this dictation. FINDINGS: The alignment is anatomical. L1-L2: Mild posterior disc bulge is seen without significant canal or neuroforaminal stenosis. L2-L3: Mild posterior disc bulge is seen without significant canal or neuroforaminal stenosis. L3-L4: Broad-based posterior disc bulge results in moderate canal stenosis, AP diameter is 6 mm. There is moderate bilateral neuroforaminal stenosis. L4-L5: No significant abnormality. L5-S1: No significant abnormality. The spinal ligaments are intact, without evidence of disruption or abnormal signal intensity. The spinal cord is normal in signal intensity and there is no evidence of cord contusion. There is no evidence of an extradural, intradural, extramedullary or intramedullary lesion. Visualized soft tissues are normal. IMPRESSION: Multilevel degenerative changes are seen with prominent disc bulge at L3-L4. There is moderate canal or neural foraminal ACT 112: Negative or not required by law. Electronically signed by: Theodore See M.D. 08/01/2022 11:21 AM Lumbar Spine X-Ray 08/05/22 00:00 INTRAOPERATIVE RADIOGRAPHS CLINICAL HISTORY: L3-L4 spinal decompression. Fluoro time: 10 seconds Ka,r: 5.00 mGy FINDINGS: 2 spot fluoroscopic views of the lumbar spine are presented. A Coflex device is seen between the posterior elements at L3-L4. Alignment is preserved. IMPRESSION: Intraoperative images of the lumbar spine as above. Electronically signed by: Pual Echevarria M.D. 08/05/2022 6:16 PM Hospital Course (1) Back pain: (2) Hypothyroidism: (3) MDD (major depressive disorder): (4) TERRANCE (generalized anxiety disorder): (5) Obesity (BMI 30-39.9): Plan 62yoF with debilitating back pain in the setting of a herniated lumbar desk with spinal stenosis. Herniated disc/Spinal stenosis -MRI spine with the following impression: "Multilevel degenerative changes are seen with prominent disc bulge at L3-L4. There is moderate canal or neural foraminal stenosis -S/P Lumbar decompression with medial facetectomies and partial discectomy L3- L4. #2 placement of 14 mm Coflex L3-L4. By Dr. Pak on 08/05/2022 --Appreciate orthopedics input Fall precautions PT OT Plan for lumbar decompression surgery today Pain control Continue gabapentin 100mg TID, also on Cymbalta PT/OT Advised to follow-up with PCP, orthopedics upon discharge Chronic hypotension Continue gentle IV fluids Monitor BP Hypothyroidism Continue levothyroxine MDD/TERRANCE On Wellbutrin, Cymbalta Obesity BMI 31, s/p gastric bypass Avoid NSAIDs as able DVT Px: Heparin SQ on hold--due to Sx CODE STATUS: FULL code Total Time Total Time Spent Total Time Spent (In Minutes): 56 minutes Discharge Plan Discharge Items Patient Disposition: Home - Self-Care Reason For Visit: BACK PAIN Discharge Diagnosis: Lumbar disc herniation with radiculopathy and progressive motor deficit Condition on Discharge: Fair Activity: As commented below Non-emergency contact: Primary Care Provider and Surgeon Call non-emergency contact if: you have any medication questions and your symptoms worsen Follow-up/Referrals: Alin Taveras MD [Primary Care Provider] - (Date & Time 08/13/2022 11:00 Rell Taveras [facility] ) Diet: Regular Addtl Attending Provider Instructions: ACTIVITY RECOMMENDATIONS: SELF CARE INSTRUCTIONS AFTER A LAMINECTOMY 1. No prolonged sitting (less than 30 minutes for the first 3 weeks after surgery). 2. No bending, lifting more than 5 pounds, or twisting (roll like a log when turning in bed). 3. You may shower 3 days after surgery if no drainage from wound. Thoroughly dry wound. Do not soak in the tub. 4. Please walk as much as you can for exercise. Gradually increase the distance that you walk as your endurance increases. 5. You may drive in 7-10 days if you are comfortable and no longer requiring pain medications. SPECIAL CARE INSTRUCTIONS: VERY IMPORTANT TO READ AND REVIEW A. Your surgical incision has been closed with a cosmetic suture under the skin that will dissolve in about 6 weeks. In 14 days, you can use a pair of clean scissors and cut the suture that is left outside of the skin at the ends of your incision. B. Complications are uncommon, but please contact us if you have any signs or symptoms of: 1. wound infection (fever higher than 102.5 degrees F, redness, separation of wound, drainage, or increasing pain from the incision) 2. blood clots in legs (pain, swelling, redness and warmth in legs) 3. urinary tract infection (fever higher than 102.5 degrees, burning upon urination or increased frequency of urination) 4. nerve problems (inability to walk on your toes or heels, numbness, loss of bowel or bladder control) 5. any other symptoms that concern you. C. Please call the office at if you have any concerns or questions about your operation or recovery. MANAGING PAIN AFTER SPINAL SURGERY 1. Narcotic medication is intended for short-term use and will be provided for surgical pain. Surgical pain usually lasts for a period of 4-6 weeks. Narcotic medication includes Percocet, Vicodin, Darvocet, Tylenol #3 or Lortab. 2. Longer-term pain is more appropriately treated with non-narcotic medication such as Tylenol ES. 3. Muscle spasm is not appropriately treated with narcotics. Muscle relaxers such as Soma, Flexeril or Skelaxin can be used along with Tylenol ES. 4. Remember that we all live with some "aches and pains". This is not unusual or uncommon after an injury or as we get older. 5. We will provide appropriate medication within the normal guidelines of their prescribed use. We will also be very cautious and aware of potential abuse and extended duration of patients' medication needs. 6. Please allow 2-3 days to process refills. Prescriptions will not be mailed but must be picked up at the office. FOLLOW UP VISIT: Keep your scheduled follow-up appointment. Any questions, please call the office at . Pending Studies at Discharge: No Stand-Alone Forms: My [facility] [email or web address], Smoking Cessation Medications and DC Order Prescriptions: New tramadol 50 mg tablet 50 mg PO Q6H PRN (Reason: pain, moderate) Qty: 30 0RF oxycodone 5 mg tablet 5 mg PO Q6H PRN (Reason: pain) Qty: 30 0RF Continued bupropion HCl 150 mg tablet sustained-release 12 hr 150 mg PO BID trazodone 50 mg tablet 50 mg PO HS levothyroxine 112 mcg tablet 112 mcg PO QAM duloxetine 30 mg capsule,delayed release(DR/EC) See Rx Instructions .ROUTE .COMPLEX Rx Instructions: Take 30mg capsule w/ 60mg capsule to equal 90mg once in the morning duloxetine 60 mg capsule,delayed release(DR/EC) See Rx Instructions .ROUTE .COMPLEX Rx Instructions: Take 60mg capsule w/ 30mg capsule to equal 90mg once in the morning Discharge Orders: Discharge Order (Routine); Ordered 08/06/22 Ordered By: Wesley Chadwick Admission Data Admit Date/Time: 08/01/22 12:04 Attending Provider: Wesley Chadwick Admit Provider: Renee Jean Primary Care Provider: Alin Taveras Other Providers: Renee Jean ; Aston Pak
== END 2022-08-06 17:30 | disposition home or self-care (01) | DRG 518 ==
LOC: ED 06:08 → 3W 12:04 → SUATTDRO 12:04 → 3W 16:29

== ENCOUNTER 2023-07-21 08:50 | Inpatient (IN) ==
--- NOTE | 2023-07-21 09:04 | Emergency Department Note ---
Impression & Plan Acute cholecystitis, Abdominal pain, Elevated bilirubin, Hematuria ED Provider Note NAME: LISBETH VELAZQUEZ AGE: 63 SEX: F : 1960 ARRIVES VIA: Walk-In INFORMANT: Patient ED PROVIDER(S): Gigi Delacruz DO CHIEF COMPLAINT: abdominal pain HPI: Patient is a 63-year-old female who presents to the ER with a past medical history of sciatica, hypothyroidism, anxiety for right upper quadrant abdominal pain associated with nausea and vomiting. Patient notes that this started on Friday and has been gradually getting worse. Significantly worse with eating and drinking. Was seen by the PCP and referred in for possible cholecystitis. Denies any headache or change in vision. No chest pain or shortness of breath. No dysuria, urgency, or frequency. No other exacerbating or remitting factors. ADDITIONAL HISTORY OBTAINED: Per HPI Chronic Medical/Social Conditions Affecting Care: Per HPI PAST MEDICAL HISTORY:See Below PAST SURGICAL HISTORY:See Below FAMILY HISTORY:See Below SOCIAL HISTORY:See Below HOME MEDICATIONS:See Below ALLERGIES:See Below VITALS:See Below PHYSICAL EXAMINATION: GENERAL: Sitting up in bed, alert, well appearing, well nourished, no distress, non-toxic EYE EXAM: normal conjunctiva. PERRL and EOM's grossly intact. OROPHARYNX:mucous membranes are moist NECK: supple, no nuchal rigidity, no adenopathy, non-tender LUNGS: Clear to auscultation. Normal chest wall mechanics HEART: no murmurs, S1 normal and S2 normal ABDOMEN: abdomen soft, acutely tender palpation right upper quad, normo-active bowel sounds, no masses, no rebound or guarding. BACK: Back is symmetrical on inspection and there is no deformity, no midline tenderness, no CVA tenderness. SKIN: no rashes and no bruising UPPER EXTREMITIES: upper extremities are grossly normal. LOWER EXTREMITIES: No pitting edema. NEURO EXAM: Normal sensorium, cranial nerves II-XII grossly intact, normal speech, no gross weakness of arms, no gross weakness of legs. No drift. Finger to nose intact. Gross sensation intact. MEDICAL DECISION MAKING: Patient is a 63-year-old female who presents ER for the above-stated complaint. IV was established blood work was obtained. Labs show no significant leukocytosis or anemia. BMP with slightly elevated glucose at 114. LFTs lipase was normal. UA with small amount of hematuria. CT abdomen pelvis did show a distended gallbladder with pericholecystic fluid. Patient was given multiple doses of IV morphine, Zofran and IV Zosyn following a CT reviewed which was concerning for acute cholecystitis discussed with general surgery Chhaya Quijano as well as the hospitalist for further evaluation management and treatment. Consults/Care Managements Discussions: Per MDM Triage Nursing notes reviewed. Limited review of prior medical records performed Vital Signs: reviewed and remarkable for no significant abnormalities Differential diagnosis: Differential diagnoses includes but is not limited to gastritis, peptic ulcer disease, GERD, gallbladder disease, pancreatitis, small bowel obstruction, appendicitis, diverticulitis, hernia, urinary tract infection, torsion, perforation, trauma, infectious. ER treatment provided: See below Diagnostics interpreted by me include EKG and cardiac monitoring as listed below: -Cardiac Monitoring: An order was placed for continuous cardiac monitoring. The monitor shows a rate of 80 with sinus rhythm. -ECG: none -Laboratory studies:Interpreted by me as stated above in MDM and shown below. Imaging studies: Xrays: As interpreted by me:none CTs show: CT abdomen pelvis per my preliminary interpretation showed no obvious bowel obstruction CT abdomen pelvis per radiology shows acute cholecystitis Procedures:none Critical Care: None Past Med/Surg History Problem List (Updated 07/21/23 @ 13:08 by Gigi Delacruz DO) Hematuria (Acute) Elevated bilirubin (Acute) Abdominal pain (Acute) Acute cholecystitis (Acute) Acute cholecystitis GERD with esophagitis CKD (chronic kidney disease) stage 3, GFR 30-59 ml/min Obesity (BMI 30-39.9) Hypothyroidism TERRANCE (generalized anxiety disorder) MDD (major depressive disorder) Medical History Scalp psoriasis Dyslipidemia OCD (obsessive compulsive disorder) Lumbar disc herniation with radiculopathy Sciatica Surgical History History of vaginal surgery vaginal sling procedure for stress incontinence - 2007 Hx of gastric bypass Hx of colonoscopy Hx of breast reduction, elective History of partial hysterectomy Family History Father Diabetes Hypertension Cancer esophageal cancer Sister Diabetes Social History Smoking Status: Never smoker Hx Alcohol Use: No Hx Substance Use: No Preferred Language: Canadian Communication Ability: Effective Metal Buffer Required: No Beliefs That Will Affect Care: None Current Living Situation: Spouse Feels Safe at Home: Yes Assistive Devices: Glasses Allergies Allergies Allergy/AdvReac Type Severity Reaction Status Date / Time codeine Allergy Intermediate HIVES Verified 07/21/23 12:58 Home Meds Home Medications Medication Instructions Recorded Confirmed bupropion HCl 150 mg tablet,12 hr 150 mg PO BID 08/01/22 07/21/23 sustained-release duloxetine 30 mg capsule,delayed See Rx Instructions .Route .COMPLEX 08/01/22 07/21/23 release duloxetine 60 mg capsule,delayed See Rx Instructions .Route .COMPLEX 08/01/22 07/21/23 release levothyroxine 112 mcg tablet 112 mcg PO QAM 08/01/22 07/21/23 trazodone 50 mg tablet 50 mg PO HS 08/01/22 07/21/23 Results & Data (ED) Vital Signs Vital Signs - 24 hr 07/21/23 08:53 07/21/23 09:12 07/21/23 09:18 Temperature 36.3 C L Temperature Source Temporal Artery Scan Pulse Rate 83 75 Pulse Rate [Apical] 78 Pulse Rhythm Respiratory Rate 20 16 Respiratory Effort / Characteristics Non-Labored Spontaneous Respiratory Depth Normal Blood Pressure 146/83 H Blood Pressure [Left Arm] 151/67 H Blood Pressure Mean 104 Blood Pressure Mean [Left Arm] 95 Pulse Oximetry 100 99 Oxygen Delivery Method Room Air Room Air Sepsis Recent Fever Within 48 Hours No Sepsis New/Unexplained Change in Mental Status N/A Sepsis Action Taken by Nursing No Action Required 07/21/23 09:18 07/21/23 11:00 Temperature Temperature Source Pulse Rate 78 Pulse Rate [Apical] 80 Pulse Rhythm Regular Respiratory Rate 16 16 Respiratory Effort / Characteristics Non-Labored Spontaneous Respiratory Depth Normal Blood Pressure Blood Pressure [Left Arm] 126/56 L Blood Pressure Mean Blood Pressure Mean [Left Arm] 79 Pulse Oximetry 99 95 Oxygen Delivery Method Room Air Room Air Sepsis Recent Fever Within 48 Hours Sepsis New/Unexplained Change in Mental Status Sepsis Action Taken by Nursing Laboratory Data 07/21/23 09:11 07/21/23 09:11 Lab Results 07/21/23 07/21/23 Range/Units 09:11 10:32 WBC 7.92 (4.8-10.8) K/ul RBC 4.74 (4.20-5.40) M/uL Hgb 14.3 (12.0-16.0) g/dl Hct 43.2 (37.0-47.0) % MCV 91.1 (80.0-100.0) fL MCH 30.2 (25.0-34.0) pg MCHC 33.1 (32.0-36.0) g/dL RDW Std Deviation 40.6 (36.4-46.3) fL RDW Coeff of Chris 12.3 (11.5-14.5) % Plt Count 221 (130-400) K/uL MPV 9.7 (9.4-12.4) fL Immature Gran % (Auto) 0.3 % Neut % (Auto) 78.8 % Lymph % (Auto) 11.1 % [place] % (Auto) 8.8 % Eos % (Auto) 0.6 % Baso % (Auto) 0.4 % Neut # (Auto) 6.24 (1.40-6.50) K/uL Lymph # (Auto) 0.88 L (1.20-3.40) K/uL [place] # (Auto) 0.70 H (0.11-0.59) K/uL Eos # (Auto) 0.05 (0.00-0.50) K/uL Baso # (Auto) 0.03 (0.00-0.20) K/uL Immature Gran # (Auto) 0.02 (0.01-0.20) K/uL Sodium 137 (136-145) mmol/L Potassium 3.9 (3.5-5.1) mmol/L Chloride 100 (98-107) mmol/L Carbon Dioxide 29 (21-32) mmol/L Anion Gap 8 (3-11) BUN 13 (6-23) mg/dl Creatinine 1.10 (0.6-1.2) mg/dl Est Cr Clr Drug Dosing 52.3 ml/min Est GFR ( Amer) 62.3 ml/min Est GFR (Non-Af Amer) 53.8 ml/min BUN/Creatinine Ratio 11.8 (10-20) Glucose 114 H (70-99(Fasting)) mg/dl Calcium 9.8 (8.6-10.3) mg/dl Total Bilirubin 1.2 H (0.2-1.0) mg/dl AST 23 (13-39) U/L ALT 16 (7-52) U/L Alkaline Phosphatase 104 (34-104) U/L Total Protein 8.0 (6.0-8.3) gm/dl Albumin 4.6 (3.4-5.0) gm/dl Globulin 3.4 (2.5-4.0) gm/dl Albumin/Globulin Ratio 1.4 (0.9-2) Lipase 4 L (11-82) U/L Urine Color Yellow Urine Appearance Clear (Clear) Urine pH 6.0 (4.5-7.5) Ur Specific [place] 1.015 (1.000-1.030) Urine Protein Negative (Negative) Urine Glucose (UA) Negative (Negative) Urine Ketones Trace H (Negative) Urine Blood Trace H (Negative) Urine Nitrite Negative (Negative) Urine Bilirubin Negative (Negative) Urine Urobilinogen Negative (Negative) Ur Leukocyte Esterase Trace H (Negative) Urine WBC (Auto) 0-5 (0-5) /hpf Urine RBC (Auto) 3-5 H (0-2) /hpf U Hyaline Cast (Auto) 0-2 (0-2) /lpf U Epithel Cells (Auto) 0-2 (0-2) /hpf Urine Bacteria (Auto) None Seen (None Seen) Administered Medications Discontinued Medications Sodium Chloride (Nss) 1,000 mls @ 999 mls/hr IV .Q1H1M ONE Stop: 07/21/23 10:05 Last Infusion: 07/21/23 10:47 Dose: Infused Documented By: Admin: 07/21/23 09:15 Dose: 999 mls/hr Documented By: CHAPITO Piperacillin Sod/Tazobactam Sod (Zosyn) 4.5 gm in 100 mls @ 200 mls/hr IV NOW ONE Stop: 07/21/23 11:13 Last Infusion: 07/21/23 11:45 Dose: Infused Documented By: Admin: 07/21/23 11:01 Dose: 200 mls/hr Documented By: CHAPITO Ioversol (Optiray 320 100ml) 95 ml IV ONCE ONE Stop: 07/21/23 10:03 Last Admin: 07/21/23 10:03 Dose: 95 ml Documented By: IRENA Morphine Sulfate (Morphine Sulfate 4 Mg/Ml 1 Ml Carp\Vial) 4 mg IV NOW STA Stop: 07/21/23 09:07 Last Admin: 07/21/23 09:15 Dose: 4 mg Documented By: CHAPITO Morphine Sulfate (Morphine Sulfate 4 Mg/Ml 1 Ml Carp\Vial) 4 mg IV NOW STA Stop: 07/21/23 10:45 Last Admin: 07/21/23 11:01 Dose: 4 mg Documented By: CHAPITO Ondansetron HCl (Ondansetron Inj 2 Mg/Ml 2 Ml Vial) 4 mg IV NOW STA Stop: 07/21/23 09:07 Last Admin: 07/21/23 09:15 Dose: 4 mg Documented By: CHAPITO Ondansetron HCl (Ondansetron Inj 2 Mg/Ml 2 Ml Vial) 4 mg IV NOW STA Stop: 07/21/23 10:45 Last Admin: 07/21/23 11:01 Dose: 4 mg Documented By: CHAPITO Imaging Data Radiologist's Impression: Abdomen/Pelvis CT 07/21/23 09:[address] WITH IV CONTRAST CT DOSE: 1199.54 mGy.cm HISTORY: Acute generalized abdominal pain abd pain TECHNIQUE: Multiaxial CT images of the abdomen and pelvis were performed following the IV administration of 95 cc of Optiray, A dose lowering technique was utilized adhering to the principles of ALARA. COMPARISON STUDY: Lumbar spine MRI 08/01/2022 FINDINGS: Mild bibasilar atelectasis versus scarring. No free air. Unremarkable appearance of the borderline enlarged spleen. Unremarkable pancreas and adrenal glands. The gallbladder is distended measuring up to 12 cm demonstrating circumferential wall thickening with pericholecystic edema/trace fluid. No cholelithiasis or biliary ductal dilation identified by CT. Unremarkable liver. Patency of the hepatic and portal veins. No hydronephrosis. Subcentimeter hypodensity of the interpolar left kidney, too small to characterize. Unremarkable urinary bladder. Hysterectomy. The aorta and IVC are unremarkable. No lymphadenopathy. [place]-en-Y gastric bypass. No bowel obstruction. Trace ascites within the dependent pelvis. There is mild circumferential wall thickening of the hepatic flexure. Normal appendix. A spacer device is noted within the L3-L4 interspinous space. No acute fracture identified. Unremarkable soft tissues. IMPRESSION: 1. Gallbladder distention and wall thickening with pericholecystic inflammation/trace free fluid suspicious for acute cholecystitis, however no cholelithiasis identified by CT. 2. No biliary ductal dilation identified. 3. Mild wall thickening of the hepatic flexure is likely reactive. 4. Noninflamed appendix. 5. [place]-en-Y gastric bypass. ACT 112: Negative or not required by law. The above report was generated using voice recognition software. It may contain grammatical, syntax or spelling errors. Electronically signed by: Marlo Leroy M.D. 07/21/2023 10:37 AM Discharge Plan Visit Data Chief Complaint: Referred by Doctor Stated Complaint: ref by doc, gallbladder attack ED Provider: Gigi Delacruz Discharge Problem: Acute cholecystitis, Abdominal pain, Elevated bilirubin, Hematuria Patient Disposition: Admitted As Inpatient Discharge Instructions Interventions: ED Discharge Assessment Last Done: 07/21/23 11:34 Discharge Problem: Abdominal pain Qualifiers: Abdominal location: unspecified location Qualified Code(s): R10.9 - Unspecified abdominal pain Hematuria Qualifiers: Hematuria type: unspecified type Qualified Code(s): R31.9 - Hematuria, unspecified
[2023-07-21] MEDS: SODIUM CHLORIDE 0.9% 1,000 ML IV ONE (09:15)
[2023-07-21] MEDS: MoRPHine SULFATE 4 MG/ML 1 ML CARP\\VIAL IV STA ×2 (09:15→11:01)
[2023-07-21] MEDS: ONDANSETRON INJ 2 MG/ML 2 ML VIAL IV STA ×2 (09:15→11:01)
[2023-07-21 09:30] LABS: Basophils # (auto) 0.03 K/uL (0.00-0.20); Basophils % (auto) 0.4 %; Eosinophils # (auto) 0.05 K/uL (0.00-0.50); Eosinophils % (auto) 0.6 %; Hematocrit (blood only) 43.2 % (37.0-47.0); Hemoglobin 14.3 g/dl (12.0-16.0); Immature Granulocytes # (auto) 0.02 K/uL (0.01-0.20); Immature Granulocytes % (auto) 0.3 %; Lymphocytes # (auto) 0.88 K/uL (1.20-3.40); Lymphocytes % (auto) 11.1 %; Mean Corpuscular Hemoglobin 30.2 pg (25.0-34.0); Mean Corpuscular Hgb Conc 33.1 g/dL (32.0-36.0); Mean Corpuscular Volume 91.1 fL (80.0-100.0); Mean Platelet Volume 9.7 fL (9.4-12.4); Monocytes % (auto) 8.8 %; Neutrophils # (auto) 6.24 K/uL (1.40-6.50); Neutrophils % (auto) 78.8 %; Platelet Count 221 K/uL (130-400); RDW Coefficient of Variation 12.3 % (11.5-14.5); RDW Standard Deviation 40.6 fL (36.4-46.3); Red Blood Count 4.74 M/uL (4.20-5.40); White Blood Count 7.92 K/ul (4.8-10.8)
[2023-07-21 09:44] LABS: Albumin Globulin Ratio 1.4 (0.9-2); Albumin Level 4.6 gm/dl (3.4-5.0); BUN Creatinine Ratio 11.8 (10-20); Bilirubin,Total 1.2 mg/dl (0.2-1.0); Calcium 9.8 mg/dl (8.6-10.3); Creatinine Clr Calc Pharmacy 52.3 ml/min; Est GFR (African American) 62.3 ml/min; Est GFR (Non-African American) 53.8 ml/min; Globulin 3.4 gm/dl (2.5-4.0); Potassium 3.9 mmol/L (3.5-5.1)
[2023-07-21] MEDS: OPTIRAY 320 100ml IV ONE (10:03)
--- OUTSIDE RECORDS SUMMARY | 2023-07-21 10:27 | External Medical Summary | Summary of Care ---
Author Name Unknown Organization [facility] Address [address] [place] [address] Phone [phone] Care Team Providers Care Keypuncher Name Role Phone Lemuel Escalante MD Primary Care Provider [phone] Reason for Visit * Reason Onset Date Comments Medication Refill 04/21/2023 Encounter Details Date Type Department Care Team (Late st Contact Info) Description 04/21/2023 Refill Family Practice [facility] [address] [place] [address] Lemuel Escalante MD [address] [facility] [place] [address] Allergies Active Allergy Reactions Criticality Noted Date Comments No Known Drug Allergy 09/27/2008 documented as of this encounter (statuses as of 05/04/2023) Medications Medication Sig Dispensed Refills Start Date End Date Status vitamin b-12 (CYANOCOBALAMIN) 1000 MCG/ML injectionIndicatio ns:Intestinal postoperative nonabsorption Inject 1 mL as directed every 30 days. 1 mL 11 03/19/2016 Active LORAzepam (ATIVAN) 0.5 MG TabletIndications: MDD (major depressive disorder), recurrent episode, moderate (HCC) Take 1 Tab by mouth 3 times a day as needed for Anxiety. 30 Tab 0 04/26/2019 Active Fluocinonide 0.05 % External SolutionIndication s:Psoriasiform dermatitis Apply to scalp nightly x 1-2 weeks and then nightly as needed for flaking or itching 60 mL 2 11/29/2020 Active Hydrocortisone 2.5 % External OintmentIndication s:Psoriasiform dermatitis Apply to groin once daily as needed for itching 30 g 5 11/29/2020 Active Triamcinolone Acetonide 0.5 % External CreamIndications:P soriasiform dermatitis Apply topically to affected area 2 times a day. To affected area. 20 g 5 11/29/2020 Active Fluocinolone Acetonide Scalp 0.01 % External Oil ([place]-Smoothe/FS Scalp)Indications: Psoriasis Apply to scalp nightly as needed 118.28 mL 0 01/12/2021 Active hydrOXYzine HCl 25 MG Oral Tablet Take by mouth 1 Tablet every 6 hours as needed for Itching. 40 Tablet 2 09/11/2021 Active Cyclobenzaprine HCl 5 MG Oral Tablet (Flexeril) Take 1 Tablet by mouth 3 times a day as needed for Muscle spasms. 30 Tablet 0 07/31/2022 Active Levothyroxine Sodium 112 MCG Oral Tablet (Levoxyl)Indicatio ns:Hypothyroidism due to acquired atrophy of thyroid take one tablet by mouth daily at least 30 minutes before breakfast and other medications 30 Tablet 11 08/19/2022 Active traZODone HCl 50 MG Oral Tablet (Desyrel)Indicatio ns:Insomnia TAKE ONE TABLET BY MOUTH NIGHTLY AT BEDTIME 90 Tablet 1 12/16/2022 Active DULoxetine HCl 60 MG Oral Capsule Delayed Release Particles (Cymbalta) TAKE 1 CAPSULE BY MOUTH ONCE DAILY along with 30mg capsule 90 Capsule 0 03/03/2023 Active DULoxetine HCl 30 MG Oral Capsule Delayed Release Particles (Cymbalta)Indicati ons:MDD (major depressive disorder), recurrent episode, moderate (HCC) TAKE 1 CAPSULE BY MOUTH ONCE DAILY along with 60mg cap 90 Capsule 0 03/03/2023 Active buPROPion HCl ER (SR) 150 MG Oral Tablet Extended Release 12 Hour (Wellbutrin SR) Take 1 Tablet by mouth in the morning and 1 Tablet before bedtime. 180 Tablet 0 04/22/2023 Active buPROPion HCl ER (SR) 150 MG Oral Tablet Extended Release 12 Hour (Wellbutrin SR) Take 1 Tablet by mouth in the morning and 1 Tablet before bedtime. 180 Tablet 0 08/01/2022 4 Discontinue d(Refill) documented as of this encounter (statuses as of 05/04/2023) Active Problems Problem Noted Date Diagnosed Date History of bariatric surgery 01/17/2021 Scalp psoriasis 01/16/2021 Stage 3a chronic kidney disease 12/27/2019 Overview: Per CKD protocol - Per CKD protocol TERRANCE (generalized anxiety disorder) 04/18/2019 Gastroesophageal reflux disease with esophagitis 11/05/2010 BECKMAN RESEARCH OTHER*[id number] 03/07/2008 Obsessive-compulsive disorder 07/11/2006 Hypothyroidism due to acquired atrophy of thyroi d 04/26/2000 Major depressive disorder 04/02/1999 Overview: ICD-10 update of inactive term documented as of this encounter (statuses as of 05/04/2023) Resolved Problems Problem Noted Date Diagnosed Date Resolved Date On methotrexate therapy 09/05/202107/19 Kidney disease, chronic, sta ge III (GFR 30-59 ml/min) 11/30/2018 12/30/2019 Overview: Per CKD protocol Seborrheic dermatitis 03/23/20132019 Acute sinusitis 06/11/2011 04/22/2012 Acute sinusitis 01/22/2011 04/22/2012 Prepatellar bursitis 01/22/2011 013 Obesity, Class I, BMI 30.0-3 4.9 (see actual BMI) 05/11/2009 04/18/2019 Overview: Per Obesity Taxonomy Dyslipidemia 01/30/2009 04/19/2019 Overview: Per Lipid Taxonomy. HTN, goal below 140/90 01/04/200908/07 Overview: Modified per HTN protocol #16. Intestinal postoperative nonabsorption 10/11/2008 01/17/2021 Hypothyroidism 04/11/2008 08/07/2010 Vitamin deficiency 04/11/2008 0 ADVANCE DIRECTIVE INFORMATION 11/25/2007 04/18/2019 Overview: No, Advance Directive brochure offered , patient declined. Morbid obesity, BMI not known 11/25/2007 05/11/2009 Overview: Per Obesity Taxonomy Examination following surgery 03/23/2007 10/20/2007 Urinary incontinence 03/19/2007 020 Overview: ICD-10 update of inactive term Ocular hypertension 10/09/2006 04/18/19 20 PURE HYPERCHOLESTEROLEM 06/14/200301/17 Overview: Per Lipid Taxonomy. FAM HX-DIABETES MELLITUS 10/27/200002/2019 TOX DIF GOITER NO CRISIS Other disorder of menstruati on and other abnormal bleeding from female genital tract 11/30/1999 HYPERTENSION NOS 01/05/2009 Overview: Modified per HTN protocol #16. documented as of this encounter (statuses as of 05/04/2023) Immunizations Name Administration Dates Next Due TDAP (age 11 and older)(Adacel) 07/08/2009 documented as of this encounter Social History Tobacco Use Types Packs/Day Years Used Date Smoking Tobacco: Never Smokeless Tobacco: Never Alcohol Use Standard Drinks/Week Comments No 0 (1 standard drink = 0.6 oz pur e alcohol) PHQ-2 Answer Date Recorded PHQ Adult Total Score 0 06/17/2020 Hunger Vital Sign Answer Date Recorded Worried About Running Out of Food in the Last Ye ar Never true 04/19/2019 Ran Out of Food in the Last Year Never true 04/19/2019 Sex and Gender Information Value Date Recorded Sex Assigned at Not on file Gender Identity Not on file Sexual Orientation Not on file Job Start Date Occupation Industry Not on file Not on file Not on file documented as of this encounter Miscellaneous Notes * Telephone Encounter - Ave Quintero, sales representative door to door - 05/04/2023 1:39 PM EDT Received message from [facility] regarding patient needing labs. Placed call to patient to advise. Left message on voicemail advising of required labs Thank you for your assistance [facility] Quintero [facility] ([facility]) 05/04/2023,1:39 PM * Telephone Encounter - Valery Davenport RPh - 04/22/2023 1:01 PM ESTSigned Prescriptions: Disp Refills buPROPion HCl ER (SR) 150 MG Oral Tablet E*180 Ta*0 Sig: Take 1 Tablet by mouth in the morning and 1 Tablet before bedtime. Authorizing Provider: LEMUEL ESCALANTE Ordering User: VALERY DAVENPORT * Telephone Encounter - Valery Davenport RPh - 04/22/2023 1:00 PM EST 3rd attempt Provided 90 days supply with 0 refill(s). Per refill protocol patient should have Cmp, CBC, urine protein on file within past year. Reviewed AMP report, Care Gaps/Health Maintenance, medications list, and for any routine labs typically ordered for this patient. Lab orders placed. Please contact patient to advise of labs ordered for blood draw AND URINE specimen (patient will have to be able to void to provide sample). Fasting is not required. Advise to obtain labs before requesting the next refill. Thanks, Valery Davenport PharmD Clinical Pharmacist [facility] [phone] 04/22/2023, 1:00 PM documented in this encounter Plan of Treatment Health Maintenance Due Date Last Done Comments HIV Screening 1976 Cologuard 2006 Fecal Occult Blood Test 2006 Sigmoidoscopy 2006 Zoster Vaccines (1 of 2) 04/25/2011 DTaP,Tdap,and Td Vaccines (2 - Td or Tdap) 07/09/2019 07/08/2009 Depression Screening 06/17/2021 06/17/2020 Mammogram 01/26/2022 01/26/2021, 10/18, 02/28/2015, Additional history exists GFR 03/08/2022 09/05/2021, 03/0 03/2021, 03/23/2021, Additional history exists Colonoscopy 06/01/2022 06/01/2012, 06/01/2012 Colorectal Cancer Screening 06/01/2022 CKD HGB USE SMARTSET 04041 09/05/202209/05, 09/05/2021, 03/23/2021, Additional history exists COVID-19 Vaccine ( season) 2022 Influenza Vaccine (FLU shot) (#1) 2022 Albumin/Creatinine Ratio 02/26/2023 02/26/2022 CKD PHOS USE SMARTSET 97536 07/04/202306/17, 11/24/2020, 04/19/2019 TSH 07/04/2023 07/03/2022, 100 09/2020, 06/09/2020, Additional history exists Diabetes Screening 09/05/2024 09/05/2021, 0 04/18/2021, 03/23/2021, Additional history exists Lipid Panel 06/09/2025 06/09/2020, 09/0 10/2018, 11/09/2013, Additional history exists GARDASIL-HPV IMMUNIZATION SERIES Aged Out No longer eligible based on patient's age to complete this topic Hepatitis B Aged Out No longer eligi ble based on patient's age to complete this topic MENINGOCOCCAL (MENACTRA/MENVEO) Aged Out No longer eligible based on patient's age to complete this topic Pneumococcal Vaccine: Pediatrics (0 to 5 Years) and At-Risk Patients (6 to 64 Years) Aged Out No longer eligible based on patient's age to complete this topic documented as of this encounter Medical Devices Implanted Type Area Specimen Technician Device Identifier Shelf Expiration Date Model / Serial / Lot Device Tvt [id number] - [id number] Implanted:Qty: 1 on 03/23/2007 at OR [facility] N/A: Bladder Gynecare 11/17/2009 [id number] / / [id number] documented as of this encounter Advance Directives Documents on File Type Date Recorded Patient Copyman Expl anation Advance Directives and Living Will 04/17/2007 Power of Center Line Cutter Operator 04/17/2007 Latest Code Status on File Code Status Date Activated Date Inactivated Comments Full Code 07/21/2020 10:04 AM 07/21/2020 3:36 PM This o rder reflects the patients wishes and were consensually agreed upon. Question Answer Comments Discussion of Advance Directives occurred with: Patient Does the patient have a Living Will? No Does the patient have Health Care Power of Center Line Cutter Operator? No Code Status History Code Status Date Activated Date Inactivated Comments Full Code 09/16/2008 6:44 PM 09/18/2008 4:39 PM This o rder reflects the patients wishes and were consensually agreed upon. Full Code 09/16/2008 11:54 AM 09/16/2008 6:44 PM This order reflects the patients wishes and were consensually agreed upon. Care Teams Keypuncher Relationship Specialty Start Date End Date Lemuel Escalante MD [address] [facility] [place] [address] PCP - General Family Medicine 03/17/19 documented as of this encounter
--- OUTSIDE RECORDS SUMMARY | 2023-07-21 10:27 | External Medical Summary | Summary of Care ---
Author Name Unknown Organization [facility] Address [address] [facility] [place] [address] Phone [phone] Care Team Providers Care Flitch Hanger Name Role Phone Alin Taveras MD Primary Care Provider [phone] Reason for Visit * Reason Onset Date Comments Health Maintenance 07/04/2023 Encounter Details Date Type Department Care Team (Late st Contact Info) Description 07/04/2023 Telephone Family Practice [facility] [address] [place] [address] Alin Taveras MD [address] [place] [address] Health Maintenance Allergies Active Allergy Reactions Criticality Noted Date Comments No Known Drug Allergy 09/27/2008 documented as of this encounter (statuses as of 07/04/2023) Medications Medication Sig Dispensed Refills Start Date End Date Status vitamin b-12 (CYANOCOBALAMIN) 1000 MCG/ML injectionIndications :Intestinal postoperative nonabsorption Inject 1 mL as directed every 30 days. 1 mL 11 03/19/2016 Active LORAzepam (ATIVAN) 0.5 MG TabletIndications:MD Romero (major depressive disorder), recurrent episode, moderate (HCC) Take 1 Tab by mouth 3 times a day as needed for Anxiety. 30 Tab 0 04/26/2019 Active Fluocinonide 0.05 % External SolutionIndications: Psoriasiform dermatitis Apply to scalp nightly x 1-2 weeks and then nightly as needed for flaking or itching 60 mL 2 11/29/2020 Active Hydrocortisone 2.5 % External OintmentIndications: Psoriasiform dermatitis Apply to groin once daily as needed for itching 30 g 5 11/29/2020 Active Triamcinolone Acetonide 0.5 % External CreamIndications:Pso riasiform dermatitis Apply topically to affected area 2 times a day. To affected area. 20 g 5 11/29/2020 Active Fluocinolone Acetonide Scalp 0.01 % External Oil ([place]-Smoothe/FS Scalp)Indications:Ps oriasis Apply to scalp nightly as needed 118.28 [...] Active Levothyroxine Sodium 112 MCG Oral Tablet (Levoxyl)Indications :Hypothyroidism due to acquired atrophy of thyroid take one tablet by mouth daily at least 30 minutes before breakfast and other medications 30 Tablet 11 08/19/2022 Active traZODone HCl 50 MG Oral Tablet (Desyrel)Indications :Insomnia TAKE ONE TABLET BY MOUTH NIGHTLY AT BEDTIME 90 Tablet 1 12/16/2022 Active buPROPion HCl ER (SR) 150 MG Oral Tablet Extended Release 12 Hour (Wellbutrin SR) Take 1 Tablet by mouth in the morning and 1 Tablet before bedtime. 180 Tablet 0 04/22/2023 Active DULoxetine HCl 60 MG Oral Capsule Delayed Release Particles (Cymbalta) TAKE 1 CAPSULE BY MOUTH ONCE DAILY along with 30mg capsule 90 Capsule 0 06/02/2023 Active DULoxetine HCl 30 MG Oral Capsule Delayed Release Particles (Cymbalta)Indication s:MDD (major depressive disorder), recurrent episode, moderate (HCC) TAKE 1 CAPSULE BY MOUTH ONCE DAILY along with 60mg cap 90 Capsule 0 06/02/2023 Active documented as of this encounter (statuses as of 07/04/2023) Active Problems Problem Noted Date Diagnosed Date History of bariatric surgery 01/17/2021 Scalp psoriasis 01/16/2021 Stage 3a chronic kidney disease 12/27/2019 Overview: Per CKD protocol - Per CKD protocol TERRANCE (generalized anxiety disorder) 04/18/2019 Gastroesophageal reflux disease with esophagitis 11/05/2010 BECKMAN RESEARCH OTHER*[id number] 03/07/2008 Obsessive-compulsive disorder 07/11/2006 Hypothyroidism due to acquired atrophy of thyroi d 04/26/2000 Major depressive disorder 04/02/1999 Overview: ICD-10 update of inactive term documented as of this encounter (statuses as of 07/04/2023) Resolved Problems Problem Noted Date Diagnosed Date [...] as of this encounter (statuses as of 07/04/2023) Immunizations Name Administration Dates Next Due TDAP [...] encounter Miscellaneous Notes * Telephone Encounter - Dulce Coot LPN - 07/04/2023 9:31 AM EDT Care Gaps Comprehensive Care Outreach Last Office/Telemedicine Visit: 08/13/2022 (in office), Visit date not found (telemedicine) Next Office Visit: Visit date not found Hemoglobin AIC Results: Lab Results Component Value Date/Time HEMOGLOBIN A1C - [facility] 5.0 04/02/2018 12:00 PM HEMOGLOBIN A1C - [facility] 5.0 02/18/2017 10:57 AM HEMOGLOBIN A1C - [facility] 5.0 01/06/2010 09:35 AM BP Readings from Last 1 Encounters: 08/13/22 106/70 Reviewed Health Maintenance below: Health Maintenance Topic Date Due HIV Screening Never done Zoster Vaccines (1 of 2) Never done DTaP,Tdap,and Td Vaccines (2 - Td or Tdap) 07/09/2019 Mammogram 01/26/2022 GFR 03/08/2022 Colorectal Cancer Screening 06/01/2022 CKD HGB USE SMARTSET 95863 09/05/2022 COVID-19 Vaccine ( season) Never done Albumin/Creatinine Ratio 02/26/2023 CKD PHOS USE SMARTSET 77653 07/04/2023 TSH 07/04/2023 Ov Mamm Labs colon Care Gap Outreach Action Taken: Left message documented in this encounter Plan of Treatment Health Maintenance Due Date Last Done Comments HIV Screening 1976 Cologuard 2006 Fecal Occult Blood Test 2006 Sigmoidoscopy 2006 Zoster Vaccines (1 of 2) 04/25/2011 DTaP,Tdap,and Td Vaccines (2 - Td or Tdap) 07/09/2019 07/08/2009 Mammogram 01/26/2022 01/26/2021, 10/18, 02/28/2015, Additional history exists GFR 03/08/2022 09/05/2021, 03/2021, 03/23/2021, Additional history exists Colonoscopy 06/01/2022 06/01/2012, 06/01/2012 Colorectal Cancer Screening 06/01/2022 CKD HGB USE SMARTSET 54553 09/05/202209/05, 09/05/2021, 03/23/2021, Additional history exists COVID-19 Vaccine ( season) 2022 Albumin/Creatinine Ratio 02/26/2023 02/26/2022 CKD PHOS USE SMARTSET 20666 07/04/202306/17, 11/24/2020, 04/19/2019 TSH 07/04/2023 07/03/2022, 1009/2020, 06/09/2020, Additional history exists Influenza Vaccine (FLU shot) (Season Ended) 2023 Diabetes Screening 09/05/2024 09/05/2021, 0 04/18/2021, 03/23/2021, Additional history exists Lipid Panel 06/09/2025 06/09/2020, 10/2018, 11/09/2013, Additional history exists GARDASIL-HPV IMMUNIZATION [...] this encounter Medical Devices Implanted Type Area Land Acquisition Manager Device Identifier Shelf Expiration Date Model / Serial / Lot Device Tvt [id number] - [id number] Implanted:Qty: 1 on 03/23/2007 at OR [facility] [place] N/A: Bladder Gynecare 11/17/2009 [id number] / / [id number] documented as of this encounter Advance Directives Documents on File Type Date Recorded Patient Mine Inspector Expl anation Advance Directives and Living Will 04/17/[address] Commissioner 04/17/2007 Latest Code Status on File Code Status Date Activated Date Inactivated Comments Full Code 07/21/2020 10:04 AM 07/21/2020 3:36 PM This o rder reflects the patients wishes and were consensually agreed upon. Question Answer Comments Discussion of Advance Directives occurred with: Patient Does the patient have a Living Will? No Does the patient have Health Care Power of Court Commissioner? No Code Status History Code Status Date Activated Date Inactivated Comments Full Code 09/16/2008 6:44 PM 09/18/2008 4:39 PM This o rder reflects the patients wishes and were consensually agreed upon. Full Code 09/16/2008 11:54 AM 09/16/2008 6:44 PM This order reflects the patients wishes and were consensually agreed upon. Care Teams Flitch Hanger Relationship Specialty Start Date End Date Alin Taveras MD [address] [place] [address] PCP - General Family Medicine 03/17/19 documented as of this encounter
--- OUTSIDE RECORDS SUMMARY | 2023-07-21 10:27 | External Medical Summary | Summary of Care ---
Author Name Unknown Organization [facility] Address [address] [facility] [place] [address] Phone [phone] Care Team Providers Care Metal Slitter Name Role Phone Lemuel Escalante MD Primary Care Provider [phone] [phone] Reason for Visit * Reason Onset Date Comments Medication Refill 03/02/2023 Encounter Details Date Type Department Care Team (Late st Contact Info) Description 03/02/2023 Refill Family Practice [facility] [address] [facility] [place] [address] Lemuel Escalante MD [address] [facility] [place] [address] MDD (major depressive disorder), recurrent episode, moderate (HCC) Allergies Active Allergy Reactions Criticality Noted Date Comments No Known Drug Allergy 09/27/2008 documented as of this encounter (statuses as of 03/03/2023) Medications Medication Sig Dispensed Refills Start Date [...] Fluocinolone Acetonide Scalp 0.01 % External Oil ([place]-Smoothe/FS Scalp)Indications: Psoriasis Apply to scalp nightly as needed 118.28 mL 0 01/12/2021 Active hydrOXYzine HCl 25 MG Oral Tablet Take by mouth 1 Tablet every 6 hours as needed for Itching. 40 Tablet 2 09/11/2021 Active buPROPion HCl ER (SR) 150 MG Oral Tablet Extended Release 12 Hour (Wellbutrin SR) Take 1 Tablet by mouth in the morning and 1 Tablet before bedtime. 180 Tablet 0 08/01/2022 Active Cyclobenzaprine HCl 5 MG Oral Tablet [...] 60mg cap 90 Capsule 0 03/03/2023 Active DULoxetine HCl 60 MG Oral Capsule Delayed Release Particles (Cymbalta) TAKE 1 CAPSULE BY MOUTH ONCE DAILY along with 30mg capsule 90 Capsule 0 10/20/2022 4 Discontinue d(Refill) DULoxetine HCl 30 MG Oral Capsule Delayed Release Particles (Cymbalta)Indicati ons:MDD (major depressive disorder), recurrent episode, moderate (HCC) TAKE 1 CAPSULE BY MOUTH ONCE DAILY along with 60mg cap 90 Capsule 0 11/04/2022 4 Discontinue d(Refill) documented as of this encounter (statuses as of 03/03/2023) Active Problems Problem Noted Date Diagnosed Date History of bariatric surgery 01/17/2021 Scalp psoriasis 01/16/2021 Stage 3a chronic kidney disease 12/27/2019 Overview: Per CKD protocol - Per CKD protocol TERRANCE (generalized anxiety disorder) 04/18/2019 Gastroesophageal reflux disease with esophagitis 11/05/2010 BECKMAN RESEARCH OTHER*[id number] 03/07/2008 Obsessive-compulsive disorder 07/11/2006 Hypothyroidism due to acquired atrophy of thyroi d 04/26/2000 Major depressive disorder 04/02/1999 Overview: ICD-10 update of inactive term documented as of this encounter (statuses as of 03/03/2023) Resolved Problems Problem Noted Date Diagnosed Date [...] as of this encounter (statuses as of 03/03/2023) Immunizations Name Administration Dates Next Due TDAP [...] encounter Miscellaneous Notes * Telephone Encounter - Lemuel Escalante MD - 03/03/2023 10:28 PM ESTSigned Prescriptions: Disp Refills DULoxetine HCl 60 MG Oral Capsule Delayed *90 Cap*0 Sig: TAKE 1 CAPSULE BY MOUTH ONCE DAILY along with 30mg capsule Authorizing Provider: LEMUEL ESCALANTE DULoxetine HCl 30 MG Oral Capsule Delayed *90 Cap*0 Sig: TAKE 1 CAPSULE BY MOUTH ONCE DAILY along with 60mg cap Authorizing Provider: LEMUEL ESCALANTE - * Telephone Encounter - Michael Ferrera [facility] - 03/03/2023 5:35 PM ESTPending Prescriptions: Disp Refills DULoxetine HCl 60 MG Oral Capsule Delayed *90 Cap*0 Sig: TAKE 1 CAPSULE BY MOUTH ONCE DAILY along with 30mg capsule DULoxetine HCl 30 MG Oral Capsule Delayed *90 Cap*0 Sig: TAKE 1 CAPSULE BY MOUTH ONCE DAILY along with 60mg cap * Telephone Encounter - Michael Ferrera [facility] - 03/03/2023 5:35 PM EST Unable to authorize medication refills at this time. Patient did not meet protocol requirements. Patient needs current labs. Please approve if appropriate. Thanks, Michael Ferrera, R.Ph. Clinical Pharmacist [facility] [phone] [id number] 03/03/2023,5:35 PM Pending Prescriptions: Disp Refills DULoxetine HCl 60 MG Oral Capsule Delayed *90 Cap*0 Sig: TAKE 1 CAPSULE BY MOUTH ONCE DAILY along with 30mg capsule DULoxetine HCl 30 MG Oral Capsule Delayed *90 Cap*0 Sig: TAKE 1 CAPSULE BY MOUTH ONCE DAILY along with 60mg cap Last Visit: 08/13/2022 (in office), Visit date not found (telemedicine) Next Visit: Visit date not found If no future appointments scheduled, and last appointment is greater than a year ago, please schedule patient for a follow-up appointment Last date the medication was ordered: 10-20-22, 11-04-22 Pharmacy: [id number] Is this request for a controlled substance?No Urine Drug Screen:No results found for this or any previous visit. Patient Phone Numbers Labs: Lab Results Component Value Date/Time CREAT 1.2 (H) 09/05/2021 03:42 PM CREAT 1.2 (H) 10/20/2019 11:37 AM POTASSIUM 4.5 09/05/2021 03:42 PM POTASSIUM 4.2 10/20/2019 11:37 AM TSH 7.36 (H) 07/03/2022 10:31 AM TSH 7.87 (H) 04/19/2019 12:02 PM LDLCALC 107 06/09/2020 08:43 AM LDLCALC 103 10/26/2018 08:36 AM LDLDIRECT NOT APPLICABLE 10/26/2018 08:36 AM LDLDIRECT 109 (H) 10/20/2007 12:36 PM ALT 18 09/05/2021 03:42 PM ALT 25 04/02/2018 12:00 PM HGBA1C 5.0 04/02/2018 12:00 PM documented in this encounter Plan of Treatment Health Maintenance Due Date Last Done Comments COVID-19 Vaccine (#1) 1961 HIV Screening 1976 Cologuard 2006 Fecal Occult Blood Test 2006 Sigmoidoscopy 2006 Zoster Vaccines (1 of 2) 04/25/2011 DTaP,Tdap,and Td Vaccines (2 - Td or Tdap) 07/09/2019 07/08/2009 Depression Screening 06/17/2021 06/17/2020 Mammogram 01/26/2022 01/26/2021, 10/18, 02/28/2015, Additional history exists GFR 03/08/2022 09/05/2021, 030 03/2021, 03/23/2021, Additional history exists Colonoscopy 06/01/2022 06/01/2012, 06/01/2012 Colorectal Cancer Screening 06/01/2022 CKD HGB USE SMARTSET 59713 09/05/202209/05, 09/05/2021, 03/23/2021, Additional history exists Influenza Vaccine (FLU shot) (#1) 2022 Albumin/Creatinine Ratio 02/26/2023 02/26/2022 CKD PHOS USE SMARTSET 59410 07/04/202306/17, 11/24/2020, 04/19/2019 TSH 07/04/2023 07/03/2022, 100 09/2020, 06/09/2020, Additional history exists Diabetes Screening 09/05/2024 09/05/2021, 0 04/18/2021, 03/23/2021, Additional history exists Lipid Panel 06/09/2025 06/09/2020, 090 10/2018, 11/09/2013, Additional history exists GARDASIL-HPV IMMUNIZATION [...] this encounter Medical Devices Implanted Type Area Knife Changer Device Identifier Shelf Expiration Date Model / Serial / Lot Device Tvt [id number] - [id number] Implanted:Qty: 1 on 03/23/2007 at OR [facility] N/A: Bladder Gynecare 11/17/2009 [id number] / / [id number] documented as of this encounter Visit Diagnoses Diagnosis MDD (major depressive disorder), recurrent episode, moderate (HCC) Major depressive disorder, recurrent episode, moderate documented in this encounter Advance Directives Documents on File Type Date Recorded Patient Middleware Solutions Architect Expl anation Advance Directives and Living Will 04/17/2007 Power of Sewer Cleaner 04/17/2007 Latest Code Status on File Code Status Date Activated Date Inactivated Comments Full Code 07/21/2020 10:04 AM 07/21/2020 3:36 PM This o rder reflects the patients wishes and were consensually agreed upon. Question Answer Comments Discussion of Advance Directives occurred with: Patient Does the patient have a Living Will? No Does the patient have Health Care Power of Sewer Cleaner? No Code Status History Code Status Date Activated Date Inactivated Comments Full Code 09/16/2008 6:44 PM 09/18/2008 4:39 PM This o rder reflects the patients wishes and were consensually agreed upon. Full Code 09/16/2008 11:54 AM 09/16/2008 6:44 PM This order reflects the patients wishes and were consensually agreed upon. Care Teams Metal Slitter Relationship Specialty Start Date End Date Lemuel Escalante MD [address] [facility] [place] [address] PCP - General Family Medicine 03/17/19 documented as of this encounter
--- OUTSIDE RECORDS SUMMARY | 2023-07-21 10:27 | External Medical Summary | Summary of Care ---
Author Name Unknown Organization [facility] Address [address] [facility] [place] [address] Phone [phone] Care Team Providers Care Joinery Setter Out Name Role Phone Alin Taveras MD Primary Care Provider [phone] Reason for Visit * Reason Comments eRx-Medication Refill Encounter Details Date Type Department Care Team (Late st Contact Info) Description 04/22/2023 Refill Family Practice [facility] [address] [facility] [place] [address] Alin Taveras MD [address] [facility] [place] [address] Allergies Active Allergy Reactions Criticality Noted Date Comments No Known Drug Allergy 09/27/2008 documented as of this encounter (statuses as of 04/22/2023) Medications Medication Sig Dispensed Refills Start Date [...] Fluocinolone Acetonide Scalp 0.01 % External Oil ([place]-Smoothe/FS Scalp)Indications: Psoriasis Apply to scalp nightly as [...] Tablet before bedtime. 180 Tablet 0 08/01/2022 Discontinue d(Refill) documented as of this encounter (statuses as of 04/22/2023) Active Problems Problem Noted Date Diagnosed Date History of bariatric surgery 01/17/2021 Scalp psoriasis 01/16/2021 Stage 3a chronic kidney disease 12/27/2019 Overview: Per CKD protocol - Per CKD protocol TERRANCE (generalized anxiety disorder) 04/18/2019 Gastroesophageal reflux disease with esophagitis 11/05/2010 BECKMAN RESEARCH OTHER*[id number] 03/07/2008 Obsessive-compulsive disorder 07/11/2006 Hypothyroidism due to acquired atrophy of thyroi d 04/26/2000 Major depressive disorder 04/02/1999 Overview: ICD-10 update of inactive term documented as of this encounter (statuses as of 04/22/2023) Resolved Problems Problem Noted Date Diagnosed Date [...] as of this encounter (statuses as of 04/22/2023) Immunizations Name Administration Dates Next Due TDAP [...] on file documented as of this encounter Plan of Treatment Health Maintenance [...] Cancer Screening 06/01/2022 CKD HGB USE SMARTSET 19352 09/05/202209/05, 09/05/2021, 03/23/2021, Additional history exists COVID-19 Vaccine ( season) 2022 Influenza Vaccine (FLU shot) (#1) 2022 Albumin/Creatinine Ratio 02/26/2023 02/26/2022 CKD PHOS USE SMARTSET 49893 07/04/2023 05/08/2022, 11/24/2020, 04/19/2019 TSH 07/04/2023 07/03/2022, 1009/2020, 06/09/2020, Additional history exists Diabetes Screening 09/05/2024 [...] this encounter Medical Devices Implanted Type Area Lining Machine Operator Device Identifier Shelf Expiration Date Model / Serial / Lot Device Tvt [id number] - [id number] Implanted:Qty: 1 on 03/23/2007 at OR [facility] [place] N/A: Bladder Gynecare 11/17/2009 [id number] / / [id number] documented as of this encounter Advance Directives Documents on File Type Date Recorded Patient Polls Or Surveys Interviewer Expl anation Advance Directives and Living Will 04/17/2007 Power of Coroner 04/17/2007 Latest Code Status on File Code Status Date Activated Date Inactivated Comments Full Code 07/21/2020 10:04 AM 07/21/2020 3:36 PM This o rder reflects the patients wishes and were consensually agreed upon. Question Answer Comments Discussion of Advance Directives occurred with: Patient Does the patient have a Living Will? No Does the patient have Health Care Power of Coroner? No Code Status History Code Status Date Activated Date Inactivated Comments Full Code 09/16/2008 6:44 PM 09/18/2008 4:39 PM This o rder reflects the patients wishes and were consensually agreed upon. Full Code 09/16/2008 11:54 AM 09/16/2008 6:44 PM This order reflects the patients wishes and were consensually agreed upon. Care Teams Joinery Setter Out Relationship Specialty Start Date End Date Alin Taveras MD [address] [facility] [place] [address] PCP - General Family Medicine 03/17/19 documented as of this encounter
--- OUTSIDE RECORDS SUMMARY | 2023-07-21 10:27 | External Medical Summary | Summary of Care ---
Author Name Unknown Organization [facility] Address [address] [facility] [place] [address] Phone [phone] Care Team Providers Care Product Marketing Programs Manager Name Role Phone Lemuel Escalante MD Primary Care Provider [phone] Reason for Visit * Reason Comments eRx-Medication Refill Encounter Details Date Type Department Care Team (Late st Contact Info) Description 05/30/2023 Refill Family Practice [facility] [address] [place] [id number] Lemuel Escalante MD [address] [facility] [place] [id number] Encounter for long-term (current) use of medications*; MDD (major depressive disorder), recurrent episode, moderate (HCC); Laboratory exam ordered as part of routine general medical examination Allergies Active Allergy Reactions Criticality Noted Date Comments No Known Drug Allergy 09/27/2008 documented as of this encounter (statuses as of 06/02/2023) Medications Medication Sig Dispensed Refills Start Date End Date Status vitamin b-12 (CYANOCOBALAMIN) 1000 MCG/ML injectionIndicatio ns:Intestinal postoperative nonabsorption Inject 1 mL as directed every 30 days. 1 mL 11 7 Active LORAzepam (ATIVAN) 0.5 MG TabletIndications: MDD (major depressive disorder), recurrent episode, moderate (HCC) Take 1 Tab by mouth 3 times a day as needed for Anxiety. 30 Tab 0 0 Active Fluocinonide 0.05 % External SolutionIndication s:Psoriasiform dermatitis Apply to scalp nightly x 1-2 weeks and then nightly as needed for flaking or itching 60 mL 2 1 Active Hydrocortisone 2.5 % External OintmentIndication s:Psoriasiform dermatitis Apply to groin once daily as needed for itching 30 g 5 1 Active Triamcinolone Acetonide 0.5 % External CreamIndications:P soriasiform dermatitis Apply topically to affected area 2 times a day. To affected area. 20 g 5 1 Active Fluocinolone Acetonide Scalp 0.01 % External Oil (Quail-Smoothe/FS Scalp)Indications: Psoriasis Apply to scalp nightly as needed 118.28 mL 0 1 Active hydrOXYzine HCl 25 MG Oral Tablet Take by mouth 1 Tablet every 6 hours as needed for Itching. 40 Tablet 2 2 Active Cyclobenzaprine HCl 5 MG Oral Tablet (Flexeril) Take 1 Tablet by mouth 3 times a day as needed for Muscle spasms. 30 Tablet 0 3 Active Levothyroxine Sodium 112 MCG Oral Tablet (Levoxyl)Indicatio ns:Hypothyroidism due to acquired atrophy of thyroid take one tablet by mouth daily at least 30 minutes before breakfast and other medications 30 Tablet 11 3 Active traZODone HCl 50 MG Oral Tablet (Desyrel)Indicatio ns:Insomnia TAKE ONE TABLET BY MOUTH NIGHTLY AT BEDTIME 90 Tablet 1 3 Active buPROPion HCl ER (SR) 150 MG Oral Tablet Extended Release 12 Hour (Wellbutrin SR) Take 1 Tablet by mouth in the morning and 1 Tablet before bedtime. 180 Tablet 0 4 Active DULoxetine HCl 60 MG Oral Capsule Delayed Release Particles (Cymbalta) TAKE 1 CAPSULE BY MOUTH ONCE DAILY along with 30mg capsule 90 Capsule 0 4 Active DULoxetine HCl 30 MG Oral Capsule Delayed Release Particles (Cymbalta)Indicati ons:MDD (major depressive disorder), recurrent episode, moderate (HCC) TAKE 1 CAPSULE BY MOUTH ONCE DAILY along with 60mg cap 90 Capsule 0 4 Active DULoxetine HCl 60 MG Oral Capsule Delayed Release Particles (Cymbalta) TAKE 1 CAPSULE BY MOUTH ONCE DAILY along with 30mg capsule 90 Capsule 0 4 06/02/19 24 Discontinued DULoxetine HCl 30 MG Oral Capsule Delayed Release Particles (Cymbalta)Indicati ons:MDD (major depressive disorder), recurrent episode, moderate (HCC) TAKE 1 CAPSULE BY MOUTH ONCE DAILY along with 60mg cap 90 Capsule 0 4 06/02/19 24 Discontinued documented as of this encounter (statuses as of 06/02/2023) Active Problems Problem Noted Date Diagnosed Date History of bariatric surgery 01/17/2021 Scalp psoriasis 01/16/2021 Stage 3a chronic kidney disease 12/27/2019 Overview: Per CKD protocol - Per CKD protocol TERRANCE (generalized anxiety disorder) 04/18/2019 Gastroesophageal reflux disease with esophagitis 11/05/2010 [facility] OTHER*[id number] 03/07/2008 Obsessive-compulsive disorder 07/11/2006 Hypothyroidism due to acquired atrophy of thyroi d 04/26/2000 Major depressive disorder 04/02/1999 Overview: ICD-10 update of inactive term documented as of this encounter (statuses as of 06/02/2023) Resolved Problems Problem Noted Date Diagnosed Date [...] as of this encounter (statuses as of 06/02/2023) Immunizations Name Administration Dates Next Due TDAP [...] Telephone Encounter - Lemuel Escalante MD - 06/02/2023 1:36 PM EDTSigned Prescriptions: Disp Refills DULoxetine HCl 60 MG Oral Capsule Delayed *90 Cap*0 Sig: TAKE 1 CAPSULE BY MOUTH ONCE DAILY along with 30mg capsule Authorizing Provider: LEMUEL ESCALANTE DULoxetine HCl 30 MG Oral Capsule Delayed *90 Cap*0 Sig: TAKE 1 CAPSULE BY MOUTH ONCE DAILY along with 60mg cap Authorizing Provider: LEMUEL ESCALANTE - * Telephone Encounter - Colleen Escalera [facility] - 06/02/2023 11:57 AM EDTPending Prescriptions: Disp Refills DULoxetine HCl 60 MG Oral Capsule Delayed *90 Cap*0 Sig: TAKE 1 CAPSULE BY MOUTH ONCE DAILY along with 30mg capsule DULoxetine HCl 30 MG Oral Capsule Delayed *90 Cap*0 Sig: TAKE 1 CAPSULE BY MOUTH ONCE DAILY along with 60mg cap * Telephone Encounter - Colleen Escalera [facility] - 06/02/2023 11:53 AM EDT Protocol not met Patient's last routine exam was August2021 Also needs labs completed. Multiple attempts to contact patient. Please approve if appropriate. Thank You, Colleen Escalera [facility] Clinical Pharmacist [facility] ([facility]) (formerly Telepharmacy) [phone] 06/02/2023, 11:57 AM * Telephone Encounter - Interface, [facility] - 06/01/2023 9:20 AM EDT Pending Prescriptions: Disp Refills DULoxetine HCl 60 MG Oral Capsule Delayed *90 Cap*0 Sig: TAKE 1CAPSULE BY MOUTH ONCE DAILY along with 30mg capsule DULoxetine HCl 30 MG Oral Capsule Delayed *90 Cap*0 Sig: TAKE 1 CAPSULE BY MOUTH ONCE DAILY along with 60mg cap documented in this encounter Plan of Treatment Scheduled Orders Name Type Priority Associated Diagnoses Orde r Schedule PHOSPHORUS Lab Routine Encounter for long-term (current) use of medications Expected: 07/04/2023 (Approximate), Expires: 06/01/2024 TSH WITH FREE T4 IF INDICATED Lab Routine Laboratory exam ordered as part of routine general medical examination Expected: 07/04/2023 (Approximate), Expires: 06/01/2024 Health Maintenance Due Date Last Done Comments [...] Cancer Screening 06/01/2022 CKD HGB USE SMARTSET 08452 09/05/202209/05, 09/05/2021, 03/23/2021, Additional history exists COVID-19 Vaccine ( - 2022-24 season) 2022 Albumin/Creatinine Ratio 02/26/2023 02/26/2022 CKD PHOS USE SMARTSET 41414 07/04/2023 05/08/2022, 11/24/2020, 04/19/2019 TSH 07/04/2023 07/03/2022, 100 09/2020, 06/09/2020, Additional history exists Influenza Vaccine (FLU [...] this encounter Medical Devices Implanted Type Area Gas Regulator Repairer Helper Device Identifier Shelf Expiration Date Model / Serial / Lot Device Tvt [id number] - [id number] Implanted:Qty: 1 on 03/23/[place] [facility] [place] Bladder Gynecare 11/17/2009 [id number] / / [id number] documented as of this encounter Visit Diagnoses Diagnosis Encounter for long-term (current) use of medications- Primary Encounter for long-term (current) use of other medications MDD (major depressive disorder), recurrent episode, moderate (HCC) Major depressive disorder, recurrent episode, moderate Laboratory exam ordered as part of routine general medical examination Laboratory examination ordered as part of a routine general medical examination documented in this encounter Advance Directives Documents on File Type Date Recorded Patient Supervisor [place] Expl anation Advance Directives and Living Will 04/17/2007 Power of Paint Pourer 04/17/2007 Latest Code Status on File Code Status Date Activated Date Inactivated Comments Full Code 07/21/2020 10:04 AM 07/21/2020 3:36 PM This o rder reflects the patients wishes and were consensually agreed upon. Question Answer Comments Discussion of Advance Directives occurred with: Patient Does the patient have a Living Will? No Does the patient have Health Care Power of Paint Pourer? No Code Status History Code Status Date Activated Date Inactivated Comments Full Code 09/16/2008 6:44 PM 09/18/2008 4:39 PM This o rder reflects the patients wishes and were consensually agreed upon. Full Code 09/16/2008 11:54 AM 09/16/2008 6:44 PM This order reflects the patients wishes and were consensually agreed upon. Care Teams Product Marketing Programs Manager Relationship Specialty Start Date End Date Lemuel Escalante MD [address] [place] [address] PCP - General Family Medicine 03/17/19 documented as of this encounter
--- NOTE | 2023-07-21 10:39 | CT Scan Report ---
ABDOMEN AND PELVIS CT WITH IV CONTRAST CT DOSE: 1199.54 mGy.cm HISTORY: Acute generalized abdominal pain abd pain TECHNIQUE: Multiaxial CT images of the abdomen and pelvis were performed following the IV administrat ion of 95 cc of Optiray, A dose lowering technique was utilized adhering to the principles of ALARA. COMPARISON STUDY: Lumbar spine MRI 08/01/2022 FINDINGS: Mild bibasilar atelectasis versus scarring. No free air. Unremarkable appearance of the bor derline enlarged spleen. Unremarkable pancreas and adrenal glands. The gallbladder is distended measu ring up to 12 cm demonstrating circumferential wall thickening with pericholecystic edema/trace fluid . No cholelithiasis or biliary ductal dilation identified by CT. Unremarkable liver. Patency of the h epatic and portal veins. No hydronephrosis. Subcentimeter hypodensity of the interpolar left kidney, too small to characterize . Unremarkable urinary bladder. Hysterectomy. The aorta and IVC are unremarkable. No lymphadenopathy. Milton-en-Y gastric bypass. No bowel obstruction. Trace ascites within the dependent pelvis. There is m ild circumferential wall thickening of the hepatic flexure. Normal appendix. A spacer device is noted within the L3-L4 interspinous space. No acute fracture identified. Unremarkable soft tissues. IMPRESSION: 1. Gallbladder distention and wall thickening with pericholecystic inflammation/trace free fluid susp icious for acute cholecystitis, however no cholelithiasis identified by CT. 2. No biliary ductal dilation identified. 3. Mild wall thickening of the hepatic flexure is likely reactive. 4. Noninflamed appendix. 5. Milton-en-Y gastric bypass. ACT 112: Negative or not required by law. The above report was generated using voice recognition software. It may contain grammatical, syntax o r spelling errors. Electronically signed by: Marlo Leroy M.D. 07/21/2023 10:37 AM
[2023-07-21 10:57] LABS: Appearance Urine Clear (Clear); Bacteria Urine Automated None Seen (None Seen); Bilirubin Urine Negative (Negative); Blood Urine Trace (Negative); Cast Urine Automated 0-2 /lpf (0-2); Color Urine Yellow; Epithelial Cell Urine Auto 0-2 /hpf (0-2); Glucose Urine UA Negative (Negative); Ketones Urine Trace (Negative); Leukocyte Esterase Urine Trace (Negative); Nitrite Urine Negative (Negative); Protein Urine Negative (Negative); Specific Gravity Urine 1.015 (1.000-1.030); Urobilinogen Urine Negative (Negative); WBC Urine Automated 0-5 /hpf (0-5)
[2023-07-21] MEDS: PIPERACILLIN/TAZOBACTAM 4.5 GM/100 ML BAG IV ONE (11:01)
--- NOTE | 2023-07-21 11:03 | History & Physical Report ---
Date of Service July 21, 2023 Assessment & Plan (1) Acute cholecystitis: Plan: This is a 63 y/o female with hx prior gastric bypass, GERD, hypothyroidism, TERRANCE, and other history as outlined who was referred to the ED today by her PCP after she presented with abdominal pain x 3 days. This pain has gradually worsened in severity. Work-up in the ED showed gallbladder distention and wall thickening with pericholecystic inflammation and trace free fluid, suspicious for acute cholecystitis. LFTs were normal other than mild total bilirubin elevation at 1.2. Pt was referred for admission and surgical evaluation for possible cholecystectomy. - Admit to med surg - Continue antibiotics as started in the ED (Zosyn) but will check blood cultures - Surgery evaluation pending - keep NPO for now in anticipation of possible OR - Labs in the AM - CBC, BMP, LFTs - Pain control (IV morphine), anti-emetics (IV Zofran) - IVF while NPO - NSS at 100 ml/hr (2) Hypothyroidism: Plan: Chronic, stable Continue levothyroxine (3) CKD (chronic kidney disease) stage 3, GFR 30-59 ml/min: Plan: Chronic, stable (4) GERD with esophagitis: Plan: Chronic, stable Daily PPI while admitted (5) MDD (major depressive disorder): Plan: Chronic, stable Continue outpatient meds Plan Pt seen and reviewed with collaborating physician, Dr. Patel. Plan of care discussed and as outlined above. Code Status: Full Code DVT Prophylaxis: SCDs for now pending potential OR Dispo: med surg Kati Callahan PA-C History of Present Illness Chief Complaint: abdominal pain x 3 days Primary Care Provider: Alin Taveras MD This is a 63 y/o female with hx prior gastric bypass, GERD, hypothyroidism, TERRANCE, and other history as outlined who was referred to the ED today by her PCP after she presented with abdominal pain x 3 days. Pt reports that gradual onset of upper abdominal pain on Friday, which has since localized to the RUQ. No specific triggering event. She describes the pain as sharp, without significant radiation. Pt has been worsening in severity since it started and may wake her at night. It is worse oral intake. She has not eaten much since the pain started. She has associated nausea and dry heaves. She denies fevers, chills, sweats, diarrhea, blood in stool, dark urine. She has never had pain like this previously. She tried Tylenol without significant relief. The morphine she has received in the ED has taken the edge off. She has a strong family history of gallbladder disease including her mother, sister, maternal grandmother, aunt, and uncle. She has a hx of gastric bypass in 2008 but still has gallbladder. Allergies Allergy/AdvReac Type Severity Reaction Status Date / Time codeine Allergy Intermediate HIVES Verified 07/21/23 12:58 Home Medications Medication Instructions Recorded Confirmed Type bupropion HCl 150 mg tablet,12 hr 150 mg PO BID 08/01/22 07/21/23 History sustained-release duloxetine 30 mg capsule,delayed See Rx Instructions .Route .COMPLEX 08/01/22 07/21/23 History release duloxetine 60 mg capsule,delayed See Rx Instructions .Route .COMPLEX 08/01/22 07/21/23 History release levothyroxine 112 mcg tablet 112 mcg PO QAM 08/01/22 07/21/23 History trazodone 50 mg tablet 50 mg PO HS 08/01/22 07/21/23 History Past Med/Surg History Problem List Hematuria (Acute) Elevated bilirubin (Acute) Abdominal pain (Acute) Acute cholecystitis (Acute) Acute cholecystitis GERD with esophagitis CKD (chronic kidney disease) stage 3, GFR 30-59 ml/min Obesity (BMI 30-39.9) Hypothyroidism TERRANCE (generalized anxiety disorder) MDD (major depressive disorder) Medical History Scalp psoriasis Dyslipidemia OCD (obsessive compulsive disorder) Lumbar disc herniation with radiculopathy Sciatica Surgical History History of vaginal surgery vaginal sling procedure for stress incontinence - 2007 Hx of gastric bypass Hx of colonoscopy Hx of breast reduction, elective History of partial hysterectomy Family History Father Diabetes Hypertension Cancer esophageal cancer Sister Diabetes Social History Smoking Status: Never smoker Second Hand Exposure: No; Do You Dip or Chew Tobacco: No; Tobacco Cessation Education Requested by Patient: No Hx Alcohol Use: Yes Alcohol type: hard liquor Alcohol Intake Frequency: Monthly or Less Hx Substance Use: No Preferred Language: Beninese Communication Ability: Effective Auto Vinyl Top Installer Required: No Beliefs That Will Affect Care: None Current Living Situation: Spouse Other Information That Helps Us Care for You: No Feels Safe at Home: Yes Safety Concerns: Feels Safe At This Time Assistive Devices: None Review of Systems Review of Systems: All systems reviewed & are unremarkable except as noted in HPI & below Constitutional: + fatigue and + anorexia; no fever, no c hills and no sweats Eyes: no diplopia Ear, Nose, Mouth, Throat: no nasal congestion, no nasal discharge and no sore throat Respiratory: no cough and no dyspnea Cardiovascular: no chest pain, no palpitations, no syncope and no edema Gastrointestinal: + abdominal pain and + nausea; no change in bowel habits, no diarrhea/loose stools and no blood in stools Genitourinary: no dysuria and no hematuria Integumentary: no rash and no yellowing of the skin Neurologic: no dizziness, no headache(s) and no confusion Psychiatric: no depression and no anxiety Physical Exam Physical Exam: General: awake, alert, appears uncomfortable but not in distress Eyes: no scleral icterus Mouth: slightly dry oral mucosa Neck: trachea midline Heart: RRR, no M/G/R Lungs: CTA bilaterally on the anterior, no W/R/R Abdomen: soft, hypoactive BS, mild to moderate RUQ tenderness but no guarding, tympanic to percussion Extremities: no pedal edema; distal pulses intact and equal Neurologic: Ox3, no confusion, no dysarthria, moving all extremities Skin: warm, dry, no jaundice Results & Data Results & Data Vital Signs (Past 12 Hours) Vital Signs Temp Pulse Pulse Resp BP BP Pulse Ox 07/21/23 09:18 78 16 99 07/21/23 09:18 78 16 151/67 H 99 07/21/23 08:53 36.3 C L 83 20 146/83 H 100 O2 Del Method 07/21/23 09:18 Room Air 07/21/23 09:18 Room Air 07/21/23 08:53 Room Air Laboratory Results 07/21/23 07/21/23 10:32 09:11 WBC 7.92 RBC 4.74 Hgb 14.3 Hct 43.2 MCV 91.1 MCH 30.2 MCHC 33.1 RDW Std Deviation 40.6 RDW Coeff of Chris 12.3 Plt Count 221 MPV 9.7 Immature Gran % (Auto) 0.3 Neut % (Auto) 78.8 Lymph % (Auto) 11.1 [place] % (Auto) 8.8 Eos % (Auto) 0.6 Baso % (Auto) 0.4 Neut # (Auto) 6.24 Lymph # (Auto) 0.88 L [place] # (Auto) 0.70 H Eos # (Auto) 0.05 Baso # (Auto) 0.03 Immature Gran # (Auto) 0.02 Sodium 137 Potassium 3.9 Chloride 100 Carbon Dioxide 29 Anion Gap 8 BUN 13 Creatinine 1.10 Est Cr Clr Drug Dosing 52.3 Est GFR ( Amer) 62.3 Est GFR (Non-Af Amer) 53.8 BUN/Creatinine Ratio 11.8 Glucose 114 H Calcium 9.8 Total Bilirubin 1.2 H AST 23 ALT 16 Alkaline Phosphatase 104 Total Protein 8.0 Albumin 4.6 Globulin 3.4 Albumin/Globulin Ratio 1.4 Lipase 4 L Urine Color Yellow Urine Appearance Clear Urine pH 6.0 Ur Specific [place] 1.015 Urine Protein Negative Urine Glucose (UA) Negative Urine Ketones Trace H Urine Blood Trace H Urine Nitrite Negative Urine Bilirubin Negative Urine Urobilinogen Negative Ur Leukocyte Esterase Trace H Urine WBC (Auto) 0-5 Urine RBC (Auto) 3-5 H U Hyaline Cast (Auto) 0-2 U Epithel Cells (Auto) 0-2 Urine Bacteria (Auto) None Seen Diagnostic Findings Abdomen/Pelvis CT 07/21/23 09:[address] WITH IV CONTRAST CT DOSE: 1199.54 mGy.cm HISTORY: Acute generalized abdominal pain abd pain TECHNIQUE: Multiaxial CT images of the abdomen and pelvis were performed following the IV administration of 95 cc of Optiray, A dose lowering technique was utilized adhering to the principles of ALARA. COMPARISON STUDY: Lumbar spine MRI 08/01/2022 FINDINGS: Mild bibasilar atelectasis versus scarring. No free air. Unremarkable appearance of the borderline enlarged spleen. Unremarkable pancreas and adrenal glands. The gallbladder is distended measuring up to 12 cm demonstrating circumferential wall thickening with pericholecystic edema/trace fluid. No cholelithiasis or biliary ductal dilation identified by CT. Unremarkable liver. Patency of the hepatic and portal veins. No hydronephrosis. Subcentimeter hypodensity of the interpolar left kidney, too small to characterize. Unremarkable urinary bladder. Hysterectomy. The aorta and IVC are unremarkable. No lymphadenopathy. Milton-en-Y gastric bypass. No bowel obstruction. Trace ascites within the dependent pelvis. There is mild circumferential wall thickening of the hepatic flexure. Normal appendix. A spacer device is noted within the L3-L4 interspinous space. No acute fracture identified. Unremarkable soft tissues. IMPRESSION: 1. Gallbladder distention and wall thickening with pericholecystic inflammation/trace free fluid suspicious for acute cholecystitis, however no cholelithiasis identified by CT. 2. No biliary ductal dilation identified. 3. Mild wall thickening of the hepatic flexure is likely reactive. 4. Noninflamed appendix. 5. Milton-en-Y gastric bypass. ACT 112: Negative or not required by law. The above report was generated using voice recognition software. It may contain grammatical, syntax or spelling errors. Electronically signed by: Marlo Leroy M.D. 07/21/2023 10:37 AM Supervising Physician Co-Signing Physician Notes Attending Addendum: care coordinated with JACE Callahan please refer to her notes for full details, I agree with her notes patient seen and examined, records reviewed by myself as well on exam, patient seen resting in bed, comfortable mild RUQ pain no chest pain, dyspnea, palpitations, dizziness no other symptoms VS noted and reviewed oriented x 3 , not in distress, speaks in sentences with no effort nor accessory muscle use normal rate, regular rhythm, no murmurs clear breath sounds bilaterally non distended, soft, mild RUQ tenderness no bipedal edema, erythema, warmth no neuro deficits all labs noted and reviewed ASSESSMENT AND PLAN> Acute cholecystitis not septic for OR today IV Zosyn IV fluids Follow-up blood cultures Monitor LFTs other diagnoses and plan of care as per JACE Callahan's notes Ian Patel MD (2) Hypothyroidism Hypothyroidism type: unspecified Qualified Code(s): E03.9 - Hypothyroidism, unspecified (3) CKD (chronic kidney disease) stage 3, GFR 30-59 ml/min Chronic kidney disease stage 3 subtype: stage 3a (GFR 45-59) Qualified Code(s): N18.31 - Chronic kidney disease, stage 3a (4) GERD with esophagitis Esophagitis bleeding: without hemorrhage Qualified Code(s): K21.00 - Gastro- esophageal reflux disease with esophagitis, without bleeding (5) MDD (major depressive disorder) Active/Remission status: remission status unspecified Major depression r ecurrence: unspecified whether recurrent Qualified Code(s): F32.9 - Major depressive disorder, single episode, unspecified
--- NOTE | 2023-07-21 11:20 | Surgery Consultation ---
Date of Consultation July 21, 2023 Assessment & Plan (1) Acute cholecystitis: This is a 63y F with a PMH of anxiety/depression, GERD, CKD, hypothyroid, h/o gastric bypass who presents to the [facility] ED on 07/21/23 with complaints of severe RUQ abdominal pain since Friday. She saw her PCP this AM and was referred to come into the ER for further eval. She underwent a CT a/p which showed gallbladder distention and wall thickening with pericholecystic inflammation/trace free fluid suspicious for acute cholecystitis, however no cholelithiasis identified by CT. There is no biliary ductal dilation identified. Patient rates her pain a 9/10 in severity and located in the RUQ. Labs reveal wbc 7.9, Hbg 14.3, Cr 1.1, LFTs okay outside of a slight elevation in Tb at 1.2. Vitals are stable. On examination patients abdomen is soft with tenderness to palpation in the epigastric and RUQ regions. Based on history/exam and imaging findings we will recommend proceeding to the OR for laparoscopic cholecystectomy. Keep NPO with IVF and on IV abx. Hospitalists are admitting the patient. Dr. Barbour will be by to obtain consent. Pt is agreeable with thte plan as above. w/u, exam, imaging c/w cholecystitis. discussed options/risks ( bleeding/infection/injury to another organ/bile duct injury or leaks/dvt/pe/mi/cva. questions answered. pt agreeable. will proceed with lap deepthi today. History of Present Illness History of Present Illness This is a 63y F with a PMH of anxiety/depression, GERD, CKD, hypothyroid, h/o gastric bypass who presents to the [facility] ED on 07/21/23 with complaints of abdominal pain. Her pain started this Friday and she says it has been fairly constant and severe. She waited the wknd to see if it would get better and to see her PCP this AM. After her appt with PCP she was referred to come into the ER for further eval. She underwent a CT a/p which showed gallbladder distention and wall thickening with pericholecystic inflammation/trace free fluid suspicious for acute cholecystitis, however no cholelithiasis identified by CT. There is no biliary ductal dilation identified. Patient rates her pain a 9/10 in severity and located in the RUQ. She denies any fevers/chills, nausea/vomiting, CP/SOB, or change in bowel habits. She is voiding. Denies any pain like this before. No issues with eating fatty/greasy/spicy food. Has been NPO outside of taking her pills with water this AM. Prior abdominal surgical history includes gastric bypass and partial hysterectomy. Allergies Allergy/AdvReac Type Severity Reaction Status Date / Time codeine Allergy Intermediate HIVES Verified 07/21/23 12:58 Home Medications Medication Instructions Recorded Confirmed Type bupropion HCl 150 mg tablet,12 hr 150 mg PO BID 08/01/22 07/21/23 History sustained-release duloxetine 30 mg capsule,delayed See Rx Instructions .Route .COMPLEX 08/01/22 07/21/23 History release duloxetine 60 mg capsule,delayed See Rx Instructions .Route .COMPLEX 08/01/22 07/21/23 History release levothyroxine 112 mcg tablet 112 mcg PO QAM 08/01/22 07/21/23 History trazodone 50 mg tablet 50 mg PO HS 08/01/22 07/21/23 History Patient History Medical History Scalp psoriasis Dyslipidemia OCD (obsessive compulsive disorder) Lumbar disc herniation with radiculopathy Sciatica Surgical History History of vaginal surgery vaginal sling procedure for stress incontinence - 2007 Hx of gastric bypass Hx of colonoscopy Hx of breast reduction, elective History of partial hysterectomy Family History Father Diabetes Hypertension Cancer esophageal cancer Sister Diabetes Social History Smoking Status: Never smoker Second Hand Exposure: No; Do You Dip or Chew Tobacco: No; Tobacco Cessation Education Requested by Patient: No Hx Alcohol Use: Yes Alcohol type: hard liquor Alcohol Intake Frequency: Monthly or Less Hx Substance Use: No Preferred Language: Austrian Communication Ability: Effective Acid Supervisor Required: No Beliefs That Will Affect Care: None Current Living Situation: Spouse Other Information That Helps Us Care for You: No Feels Safe at Home: Yes Safety Concerns: Feels Safe At This Time Assistive Devices: None Review of Systems Constitutional: no fever and no chills Respiratory: no dyspnea Cardiovascular: no chest pain Gastrointestinal: + abdominal pain and + bloating; no naus ea, no vomiting and no change in bowel habits Genitourinary: no problem reported Physical Exam Physical Exam: awake/alert, appears in pain Respiratory: normal respiratory effort Cardiovascular: Rate/Rhythm: regular rate Gastrointestinal (Abdomen): Inspection/Auscultation: abdomen not distended Percussion/Palpation: + abdomen tender (ttp in RUQ and epigastric regions) and abdomen soft Results & Data Vital Signs (Past 12 Hours) Vital Signs Temp Pulse Pulse Resp BP BP Pulse Ox 07/21/23 11:00 80 16 126/56 L 95 07/21/23 09:18 78 16 99 07/21/23 09:18 78 16 151/67 H 99 07/21/23 08:53 97.3 F L 83 20 146/83 H 100 O2 Del Method 07/21/23 11:00 Room Air 07/21/23 09:18 Room Air 07/21/23 09:18 Room Air 07/21/23 08:53 Room Air Diagnostic Findings ABDOMEN AND PELVIS CT WITH IV CONTRAST CT DOSE: 1199.54 mGy.cm HISTORY: Acute generalized abdominal pain abd pain TECHNIQUE: Multiaxial CT images of the abdomen and pelvis were performed following the IV administration of 95 cc of Optiray, A dose lowering technique was utilized adhering to the principles of ALARA. COMPARISON STUDY: Lumbar spine MRI 08/01/2022 FINDINGS: Mild bibasilar atelectasis versus scarring. No free air. Unremarkable appearance of the borderline enlarged spleen. Unremarkable pancreas and adrenal glands. The gallbladder is distended measuring up to 12 cm demonstrating circumferential wall thickening with pericholecystic edema/trace fluid. No cholelithiasis or biliary ductal dilation identified by CT. Unremarkable liver. Patency of the hepatic and portal veins. No hydronephrosis. Subcentimeter hypodensity of the interpolar left kidney, too small to characterize. Unremarkable urinary bladder. Hysterectomy. The aorta and IVC are unremarkable. No lymphadenopathy. Milton-en-Y gastric bypass. No bowel obstruction. Trace ascites within the dependent pelvis. There is mild circumferential wall thickening of the hepatic flexure. Normal appendix. A spacer device is noted within the L3-L4 interspinous space. No acute fracture identified. Unremarkable soft tissues. IMPRESSION: 1. Gallbladder distention and wall thickening with pericholecystic inflammation/trace free fluid suspicious for acute cholecystitis, however no cholelithiasis identified by CT. 2. No biliary ductal dilation identified. 3. Mild wall thickening of the hepatic flexure is likely reactive. 4. Noninflamed appendix. 5. Milton-en-Y gastric bypass. ACT 112: Negative or not required by law. PG Care Time/CCT Total # of Minutes Spent Total Time Spent with Patient: Total time spent is greater than 50% in coordination of care (as documented) at patient's floor/unit and/or counseling patient: Coding Level of Care Code 26883 OFFICE CONSULT LVL Diagnoses Acute cholecystitis K81.0
[2023-07-21] MEDS ORDERED: MoRPHine SULFATE 4 MG/ML 1 ML CARP\\VIAL IV PRN ×2 (11:32→16:15)
[2023-07-21] MEDS ORDERED: ONDANSETRON INJ 2 MG/ML 2 ML VIAL IV PRN ×2 (11:38→13:40)
[2023-07-21] MEDS ORDERED: PROPOFOL IV EMULSION 10 MG/ML 20 ML VIAL IV ONE ×2 (11:53→13:41)
[2023-07-21] MEDS ORDERED: ROCURONIUM BROMIDE 10 MG/ML 5 ML VIAL IV ONE (11:53)
[2023-07-21] MEDS ORDERED: fentaNYL citrate PF 100 MCG/2 ML VIAL ONE ×3 (11:54→14:33)
[2023-07-21] MEDS ORDERED: MIDAZOLAM HCL 1 MG/ML 2ML VIAL ONE ×2 (11:54→13:41)
[2023-07-21] MEDS: LACTATED RINGER'S 1,000 ML IV SCH ×2 (12:50→17:50)
[2023-07-21] MEDS ORDERED: HYDROmorphone INJ 1 MG/ML SYRINGE IV PRN (13:40)
[2023-07-21] MEDS ORDERED: ePHEDrine sulfate 50 MG/ML AMP IV PRN (13:40)
[2023-07-21] MEDS ORDERED: fentaNYL citrate PF 100 MCG/2 ML VIAL IV PRN (13:40)
[2023-07-21] MEDS ORDERED: ATROPINE SULFATE 0.1 MG/ML 10ML SYR IV PRN (13:40)
[2023-07-21] MEDS ORDERED: DEXAMETHASONE SOD INJ 4 MG/ML VIAL ONE (13:41)
[2023-07-21] MEDS ORDERED: LIDOCAINE 2% 2 ML VIAL/AMP(20MG/ML) INFIL ONE (13:41)
[2023-07-21] MEDS ORDERED: ONDANSETRON INJ 2 MG/ML 2 ML VIAL ONE (13:41)
[2023-07-21] MEDS ORDERED: DROPERIDOL 5 MG/2 ML VIAL ONE (13:41)
--- NOTE | 2023-07-21 14:11 | Anesthesiology Consultation ---
Date of Service July 21, 2023 Assessment & Plan ASA ASA2 Proposed Anesthesia Anesthesia Type: General Risk / Benefits Reviewed With: PT / POA / Parent / Guardian, Accepts Plan and Informed Consent Obtained History Surgery Operation Date: 07/21/23 13:00 Proposed Procedures p Laparoscopic Cholecystectomy - Malachi Barbour DO Height/Weight Height: 5 ft 3 in Weight: 78.3 kg Allergies Allergy/AdvReac Type Severity Reaction Status Date / Time codeine Allergy Intermediate HIVES Verified 07/21/23 12:58 Medications Home Medications Medication Instructions Recorded Confirmed Last Taken bupropion HCl 150 mg tablet,12 hr 150 mg PO BID 08/01/22 07/21/23 07/21/23 sustained-release duloxetine 30 mg capsule,delayed See Rx Instructions .Route .COMPLEX 08/01/22 07/21/23 07/21/23 release duloxetine 60 mg capsule,delayed See Rx Instructions .Route .COMPLEX 08/01/22 07/21/23 07/21/23 release levothyroxine 112 mcg tablet 112 mcg PO QAM 08/01/22 07/21/23 07/21/23 trazodone 50 mg tablet 50 mg PO HS 08/01/22 07/21/23 07/20/23 Active Medications Generic Name Dose Route Start Last Admin Trade Name Freq PRN Reason Stop Dose Admin Lactated Ringer's 1,000 mls @ 15 mls/hr 07/21/23 12:15 07/21/23 13:54 Lr IV 08/20/23 12:14 Infused .Q24H NETTA Infusion NPO Date Last Intake of Fluids: 07/21/23 Time Last Intake of Fluids: 06:00 Last Intake of Fluids Comment: sip of water with am meds Date Last Intake of Solids: 07/21/23 Time Last Intake of Solids: 12:00 Past Medical History Medical History Scalp psoriasis Dyslipidemia OCD (obsessive compulsive disorder) Lumbar disc herniation with radiculopathy Sciatica Exercise / Class Metabolic Activity II 4-5 Yardwork/Stairs/Walk up hill Past Family History Family History Father Diabetes Hypertension Cancer esophageal cancer Sister Diabetes Past Surgical History Surgical History History of vaginal surgery vaginal sling procedure for stress incontinence - 2007 Hx of gastric bypass Hx of colonoscopy Hx of breast reduction, elective History of partial hysterectomy Past Anesthesia History No Hx of Anesthesia Complications and No Family Hx of Anesthesia Complications History of PONV No Hx of PONV and No Hx of Motion Sickness Social History Smoking Status: Never smoker Do You Dip or Chew Tobacco: No Hx Alcohol Use: Yes Alcohol type: hard liquor alcohol intake frequency: a few times a month Hx Substance Use: No substance use type: does not use Review of Systems denies fever/cough/ colds/ chest pain/ SOB/ CAROLINE denies CAROLINE Physical Exam Vital Signs Last Vital Signs Temp 36.5 C 07/21/23 13:02 Pulse 82 07/21/23 13:02 Resp 16 07/21/23 13:02 BP 127/71 07/21/23 13:02 Pulse Ox 100 07/21/23 13:02 O2 Del Method Room Air 07/21/23 13:02 O2 Flow Rate 2 07/21/23 11:38 ENMT Mouth: + dentures; no TMJ abnormality and no dentition abnormality Thyromental Distance: > or= 3.5 Finger Breadths Mallampati Class: II Neck neck extension not limited Respiratory normal respiratory effort; no respiratory distress Auscultation: lungs clear to auscultation bilaterally Cardiovascular Rate/Rhythm: regular rate and regular rhythm Neurologic moves all extremities Psychiatric Orientation: alert and oriented x 3 Testing Laboratory Results 07/21/23 09:11 07/21/23 09:11 Urine Color Yellow 07/21/23 10:32 Urine Appearance Clear (Clear) 07/21/23 10:32 Urine pH 6.0 (4.5-7.5) 07/21/23 10:32 Ur Specific [place] 1.015 (1.000-1.030) 07/21/23 10:32 Urine Protein Negative (Negative) 07/21/23 10:32 Urine Glucose (UA) Negative (Negative) 07/21/23 10:32 Urine Ketones Trace (Negative) H 07/21/23 10:32 Urine Nitrite Negative (Negative) 07/21/23 10:32 Ur Leukocyte Esterase Trace (Negative) H 07/21/23 10:32 Urine WBC (Auto) 0-5 /hpf (0-5) 07/21/23 10:32 Urine RBC (Auto) 3-5 /hpf (0-2) H 07/21/23 10:32 U Hyaline Cast (Auto) 0-2 /lpf (0-2) 07/21/23 10:32 U Epithel Cells (Auto) 0-2 /hpf (0-2) 07/21/23 10:32 Urine Bacteria (Auto) None Seen (None Seen) 07/21/23 10:32
[2023-07-21] MEDS ORDERED: PHENYLEPHRINE HCL 10 MG/ML VIAL ONE (14:19)
[2023-07-21] MEDS ORDERED: PHENYLEPHRINE 100MCG/ML 10ML SYR IV ONE (14:25)
[2023-07-21] MEDS ORDERED: SUGAMMADEX SODIUM 200 MG/2 ML VIAL IV ONE (14:25)
[2023-07-21] MEDS ORDERED: KETOROLAC 30 MG/ML VIAL ONE (14:25)
[2023-07-21] MEDS: BUPIVACAINE/EPINEPHRINE 0.5% MPF 1:200,000 30 ML VIAL ONE (15:01)
--- NOTE | 2023-07-21 15:17 | Operative Report ---
PG Post Operative Report Pre & Post Diagnosis Operation Date: 07/21/23 13:00 Pre-Op Diagnosis: Acute cholecystitis Post-Op Diagnosis: Acute cholecystitis I identified the patient and participated in the time-out.: Yes Procedure Operation Date: 07/21/23 13:00 Actual Procedures p Laparoscopic Cholecystectomy(Not Applicable) - Malachi Barbour DO Surgeon Malachi Barbour DO Stagecraft Teacher andrew Carlton Estimated Blood Loss 100 Findings Consistent with Post-Op Diagnosis Specimens gallbladder Description of Procedure After informed consent was obtained the patient was taken to the operating room and placed in the supine position. After successful intubation the abdomen was sterilely prepped and draped in usual fashion. A periumbilical incision was made with an 11 blade scalpel and carried down through the soft tissue using electrocautery. The anterior rectus fascia was opened using electrocautery and 2 #0 Vicryl stay sutures were placed. The peritoneum was elevated with hemostats and incised under direct vision using Metzenbaum scissors. A finger sweep was performed and a 12 mm Lopez trocar was placed. The abdomen was insufflated to 18 mmHg. The laparoscope was inserted and the abdomen was examined in 360. The gallbladder was acutely inflamed. A subxiphoid 5 mm port and 2 right upper quadrant 5 mm ports were placed under direct vision. The patient was placed in a reverse Trendelenburg position and slightly airplaned to the left. Initially it was difficult to grasp the gallbladder because of the distention and inflammation. Use a gallbladder needle to drain about 20 or 30 cc of thick purulent fluid. Next, the gallbladder was grasped and elevated superiorly and laterally. A [place] dissector was used to take down adhesions around the neck of the gallbladder. The cystic duct was identified and skeletonized. It was clipped twice proximally and once distally and transected using a laparoscopic scissor. In similar fashion the cystic artery was identified and skeletonized clipped and divided. The gallbladder was removed from the gallbladder fossa with electrocautery. It was placed into an Endo Catch bag. Thorough irrigation was performed. At the end of the procedure there was adequate hemostasis and no evidence of any bile leaks. A final look around the abdomen showed no other abnormalities. Her prior Milton-en-Y bypass appeared okay with no evidence of internal hernia. The gallbladder and trochars were all removed and the abdomen was desufflated. The fascia of the camera port was closed using 0 Vicryl in a [id number] fashion. All the wounds were irrigated and closed using 4-0 Monocryl. Marcaine was injected around them for postoperative analgesia and skin glue used as a dressing. The patient was awakened, extubated and transferred to recovery in stable condition. My physician's manufacturing assistant was present throughout the entire case... helped with prepping the patient. With exposure for trocar placement, as well as retracted the gallbladder throughout the case and also assisted with wound closure and dressing placement. I attest to the content of the Intraoperative Record and any orders documented therein. Any exceptions are noted below.
[2023-07-21] MEDS ORDERED: MoRPHine SULFATE 2 MG/ML CARP IV PRN (16:15)
[2023-07-21] MEDS ORDERED: NYSTATIN POWDER 15GM BTL EXT PRN (16:15)
[2023-07-21] MEDS ORDERED: oxyCODONE HCL IR 5 MG TAB (IMMEDIATE RELEASE) PO PRN (16:15)
[2023-07-21] MEDS: ACETAMINOPHEN 325 MG TAB ONE (17:11)
[2023-07-21] MEDS: SODIUM CHLORIDE 0.9% 1,000 ML IV SCH (17:11)
[2023-07-21] MEDS: ACETAMINOPHEN 1,000 MG/100 ML VIAL IV SCH (17:50)
--- NOTE | 2023-07-21 18:25 | Anesthesiology Progress Note ---
Date of Service July 21, 2023 Anesthesia Post Procedure Vital Signs Vital Signs: Temp Pulse Pulse Resp BP BP Pulse Ox 07/21/23 17:25 36.4 C L 88 14 148/85 H 97 07/21/23 16:55 36.8 C 88 14 147/75 H 97 07/21/23 16:15 36.7 C 94 H 18 127/77 98 07/21/23 16:15 07/21/23 15:45 36.6 C 88 17 129/72 93 07/21/23 15:35 88 10 L 118/63 100 07/21/23 15:25 82 25 H 121/62 100 07/21/23 15:19 36.4 C L 94 H 20 119/64 100 07/21/23 13:02 36.5 C 82 16 127/71 100 07/21/23 11:38 77 18 114/67 99 07/21/23 11:00 80 16 126/56 L 95 07/21/23 09:18 78 16 99 07/21/23 09:18 78 16 151/67 H 99 07/21/23 09:12 75 07/21/23 08:53 36.3 C L 83 20 146/83 H 100 O2 Del Method O2 Flow Rate 07/21/23 17:25 Nasal Cannula 1 07/21/23 16:55 Nasal Cannula 2 07/21/23 16:15 Nasal Cannula 2 07/21/23 16:15 Nasal Cannula 2 07/21/23 15:45 Room Air 07/21/23 15:35 Oxymask 5 07/21/23 15:25 Oxymask 5 07/21/23 15:19 Oxymask 5 07/21/23 13:02 Room Air 07/21/23 11:38 Nasal Cannula 2 07/21/23 11:00 Room Air 07/21/23 09:18 Room Air 07/21/23 09:18 Room Air 07/21/23 09:12 07/21/23 08:53 Room Air Pain Intensity Abdomen: Pain Intensity: 5 Transfer of Care Handoff Completed per policy Notes Mental Status: alert / awake / arousable Patient Amnestic to Procedure: Yes Nausea / Vomiting: adequately controlled Pain: adequately controlled Airway Patency, RR, SpO2: stable & adequate BP & HR: stable & adequate Hydration State: stable & adequate Anesthetic Complications: no major complications apparent
[2023-07-21] MEDS: PIPERACILLIN/TAZOBACTAM 4.5 GM in DEXTROSE 5% MINI-B 100 ML IV SCH (20:08)
[2023-07-21] MEDS: buPROPion SR 150 MG TABCR PO SCH (20:23)
--- OUTSIDE RECORDS SUMMARY | 2023-07-21 21:30 | External Medical Summary | Summary of Care ---
Author Name Unknown Organization [facility] Address [address] [address] Phone [phone] Care Team Providers Care Journeyman Painter Name Role Phone Lemuel Taveras MD Primary Care Provider [phone] Reason for Visit * Reason Comments Abdominal Pain Encounter Details Date Type Department Care Team (Late st Contact Info) Description 07/21/2023 8:00 AM EDT Office Visit General Internal Medicine [facility] [address] [address] Shanae Richardson MD [address] [place] [address] Abdominal pain, right upper quadrant*; History of bariatric surgery; Nausea without vomiting Allergies Active Allergy Reactions Criticality Noted Date Comments No Known Drug Allergy 09/27/2008 documented as of this encounter (statuses as of 07/21/2023) Medications Medication Sig Dispensed Refills Start Date End Date Status vitamin b-12 (CYANOCOBALAMIN) 1000 MCG/ML injectionIndications :Intestinal postoperative nonabsorption Inject 1 mL as directed every 30 days. 1 mL 11 03/19/2016 Active LORAzepam (ATIVAN) 0.5 MG TabletIndications:MD Romero (major depressive disorder), recurrent episode, moderate (HCC) Take 1 Tab by mouth 3 times a day as needed for Anxiety. 30 Tab 04/26/2019 Active Fluocinonide 0.05 % External SolutionIndications: [...] Fluocinolone Acetonide Scalp 0.01 % External Oil ([place]-Smoothe/FS Scalp)Indications:Ps oriasis Apply to scalp nightly as needed 118.28 mL 01/12/2021 Active hydrOXYzine HCl 25 MG Oral Tablet Take by mouth 1 Tablet every 6 hours as needed for Itching. 40 Tablet 2 09/11/2021 Active Cyclobenzaprine HCl 5 MG Oral Tablet (Flexeril) Take 1 Tablet by mouth 3 times a day as needed for Muscle spasms. 30 Tablet 07/31/2022 Active Levothyroxine Sodium 112 MCG Oral [...] and 1 Tablet before bedtime. 180 Tablet 04/22/2023 Active DULoxetine HCl 60 MG Oral Capsule Delayed Release Particles (Cymbalta) TAKE 1 CAPSULE BY MOUTH ONCE DAILY along with 30mg capsule 90 Capsule 06/02/2023 Active DULoxetine HCl 30 MG Oral Capsule Delayed Release Particles (Cymbalta)Indication s:MDD (major depressive disorder), recurrent episode, moderate (HCC) TAKE 1 CAPSULE BY MOUTH ONCE DAILY along with 60mg cap 90 Capsule 06/02/2023 Active documented as of this encounter (statuses as of 07/21/2023) Active Problems Problem Noted Date Diagnosed Date History of bariatric surgery 01/17/2021 Scalp psoriasis 01/16/2021 Stage 3a chronic kidney disease 12/27/2019 Overview: Per CKD protocol - Per CKD protocol TERRANCE (generalized anxiety disorder) 04/18/2019 Gastroesophageal reflux disease with esophagitis 11/05/2010 [employer]ECK[employer] RESEARCH OTHER*[id number] 03/07/2008 Obsessive-compulsive disorder 07/11/2006 Hypothyroidism due to acquired atrophy of thyroi d 04/26/2000 Major depressive disorder 04/02/1999 Overview: ICD-10 update of inactive term documented as of this encounter (statuses as of 07/21/2023) Resolved Problems Problem Noted Date Diagnosed Date [...] as of this encounter (statuses as of 07/21/2023) Immunizations Name Administration Dates Next Due TDAP, Age 7 and older, IM (Adacel) 07/08/2009 documented as of this encounter Social [...] on file documented as of this encounter Last Filed Vital Signs Vital Sign Reading Time Taken Comments Blood Pressure 132/80 07/21/2023 8:09 AM EDT Pulse 79 07/21/2023 8:09 AM EDT Temperature 36.9 C (98.4 F) 07/21/2023 8:09 AM ED T Respiratory Rate 16 07/21/2023 8:09 AM EDT Oxygen Saturation 99% 07/21/2023 8:09 AM EDT Inhaled Oxygen Concentration - - Weight 78 kg (171 lb 14.4 oz) 07/21/2023 8:09 AM EDT Height 160 cm (5' 2.99") 07/21/2023 8:09 AM EDT Body Mass Index 30.46 07/21/2023 8:09 AM EDT documented in this encounter Progress Notes * Shanae Richardson MD - 07/21/2023 8:18 AM EDT SUBJECTIVE: Mariaelena Rico is a 63 year old female. Chief Complaint Patient presents with Abdominal Pain Nursing Notes: Tabitha Israel, JODI 07/21/23 0810 Signed Patient presents today for abdominal pain. She said it runs from the top of stomach and down to herbellybutton. She said it started Friday and it is getting worse. She can't eat and she is throwing up. She said that she has taken tylenol for the pain and it will give her about an hour of relief. She can't sleep because of it and she said the pain is so bad that she has been doubled over. HPI: Patient being seen for acute appointment with symptoms of abdominal pain you started Friday. States starts in the upper abdomen and radiates towards the umbilicus, no radiation to the back, associated with nausea, no vomiting, has not been able to eat anything properly, has been able to drink fluids. No diarrhea or constipation, last bowel movement was yesterday and normal no blood in the stool or black tarry stools. Denies any bloating. Pain is constant, gets worse at times, rates it as 8/10, has been taking Tylenol without any improvement. History of gastric bypass, still has her gallbladder Past Surgical History: Procedure Laterality Date BIOPSY OF UTERUS LINING COLONOSCOPY, DIAGNOSTIC (RECTUM) 06/01/2012 COLONOSCOPY FLEXIBLE PROXIMAL DIAGNOSTIC performed by Caryn Rivera DO at OR [facility] EGD, FLEXIBLE, DIAGNOSTIC 09/16/08 UPPER GI ENDOSCOPY DIAGNOSTIC performed by LEMUEL WELLINGTON at OR [facility] INF SIS/HYSTOSALPINGOGRAPH hysterosonogram LAPAROSCOPE PROCEDURE, LIVER 09/16/08 UNLISTED LAPAROSCOPIC PROCEDURE LIVER performed by LEMUEL WELLINGTON at OR [facility] LAPAROSCOPIC GASTRIC BYPASS/LENA-EN-Y 09/16/08 LAPAROSCOPIC GASTRIC RESTRICTIVE BYPASS LENA EN Y performed by LEMUEL WELLINGTON at OR [facility] LIGATE/CUT OVIDUCT(S) 1983 PARTIAL HYSTERECTOMY 11/30/99 REDUCTION OF BREAST 1995 REMOVE PILONIDAL CYST, SIMPLE N/A 07/21/2020 EXCISION OF PILONIDAL CYST SIMPLE performed by Reddy Alvarez MD at OR [facility] REPAIR BLADDER DEFECT 03/23/07 VAGINAL SLING PROCEDURE FOR STRESS INCONTINENCE performed by ELIOT GUSTAFSON at OR [facility] Patient Active Problem List Diagnosis Major depressive disorder Hypothyroidism due to acquired atrophy of thyroid Obsessive-compulsive disorder [employer]EARCH OTHER*[id number] Gastroesophageal reflux disease with esophagitis TERRANCE (generalized anxiety disorder) Stage 3a chronic kidney disease Scalp psoriasis History of bariatric surgery Current Outpatient Medications Medication Sig Dispense Refill vitamin b-12 (CYANOCOBALAMIN) 1000 MCG/ML injection Inject 1 mL as directed every 30 days. 1 mL 11 LORAzepam (ATIVAN) 0.5 MG Tablet Take 1 Tab by mouth 3 times a day as needed for Anxiety. 30 Tab 0 Fluocinonide 0.05 % External Solution Apply to scalp nightly x 1-2 weeks and then nightly as neededfor flaking or itching 60 mL 2 Hydrocortisone 2.5 % External Ointment Apply to groin once daily as needed for itching 30 g 5 Triamcinolone Acetonide 0.5 % External Cream Apply topically to affected area 2 times a day. To affected area. 20 g 5 Fluocinolone Acetonide Scalp 0.01 % External Oil ([place]-Smoothe/FS Scalp) Apply to scalp nightly asneeded 118.28 mL 0 hydrOXYzine HCl 25 MG Oral Tablet Take by mouth 1 Tablet every 6 hours as needed for Itching. 40 Tablet 2 Cyclobenzaprine HCl 5 MG Oral Tablet (Flexeril) Take 1 Tablet by mouth 3 times a day as needed for Muscle spasms. 30 Tablet 0 traZODone HCl 50 MG Oral Tablet (Desyrel) TAKE ONE TABLET BY MOUTH NIGHTLY AT BEDTIME 90 Tablet 1 buPROPion HCl ER (SR) 150 MG Oral Tablet Extended Release 12 Hour (Wellbutrin SR) Take 1 Tablet by mouth in the morning and 1 Tablet before bedtime. 180 Tablet 0 DULoxetine HCl 60 MG Oral Capsule Delayed Release Particles (Cymbalta) TAKE 1 CAPSULE BY MOUTH ONCEDAILY along with 30mg capsule 90 Capsule 0 DULoxetine HCl 30 MG Oral Capsule Delayed Release Particles (Cymbalta) TAKE 1 CAPSULE BY MOUTH ONCEDAILY along with 60mg cap 90 Capsule 0 Levothyroxine Sodium 112 MCG Oral Tablet (Levoxyl) take one tablet by mouth daily at least 30 minutes before breakfast and other medications 30 Tablet 11 No current facility-administered medications for this visit. Review of patient's allergies indicates: Allergen Reactions No Known Drug Allergy OBJECTIVE: BP 132/80 | Pulse 79 | Temp 36.9 C (98.4 F) (Tympanic) | Resp 16 | Ht 1.6 m (5' 2.99") | Wt 78 kg (171 lb 14.4 oz) | LMP 11/08/1999 | SpO2 99% | BMI 30.46 kg/m | BSA 1.86 m PHYSICAL EXAM: General: alert, healthy, no distress, well developed No icterus Op- Mm moist Heart: regular rhythm and rate,No murmurs. Lungs: lungs clear to auscultation Extremities: no edema Abdomen: Soft, RUQ >Epigastric tenderness with mild guarding,no rebound/rigidity,, sl hypoactivebowel sounds, no masses or organomegaly ASSESSMENT/PLAN: Abdominal pain, right upper quadrant (Primary) History of bariatric surgery Nausea without vomiting DD ac cholecystitis. Discussed with patient need for further evaluation and treatment and she is agreeable to go to ER.,her parents will take her Nurse to notify ER Follow-up: Return if symptoms worsen or fail to improve. | Check-out note: To ER now (This note was completed using the dictation program Fluency Direct. As such, there may be misspellings, word substitutions, or other variations that should not change the essence of the clinical content of this encounter note. If there is need for further clarification, please direct questions to the provider listed above.) Patient and / caregiver verbalize understanding of above instructions and agrees with plan of care. Shanae Richardson MD 07/21/2023 documented in this encounter Nursing Notes * Tabitha Israel, JODI - 07/21/2023 8:06 AM EDT Patient presents today for abdominal pain. She said it runs from the top of stomach and down to herbellybutton. She said it started Friday and it is getting worse. She can't eat and she is throwing up. She said that she has taken tylenol for the pain and it will give her about an hour of relief. She can't sleep because of it and she said the pain is so bad that she has been doubled over. documented in this encounter Plan of Treatment [...] Cancer Screening 06/01/2022 CKD HGB USE SMARTSET 04811 09/05/202209/05, 09/05/2021, 03/23/2021, Additional history exists COVID-19 Vaccine ( season) 2022 Albumin/Creatinine Ratio 02/26/2023 02/26/2022 CKD PHOS USE SMARTSET 86458 07/04/202306/17, 11/24/2020, 04/19/2019 TSH 07/04/2023 07/03/2022, 09/2020, 06/09/2020, Additional history exists Influenza Vaccine [...] this encounter Medical Devices Implanted Type Area Cardroom Manager Device Identifier Shelf Expiration Date Model / Serial / Lot Device Tvt [id number] - [id number] Implanted:Qty: 1 on 03/23/2007 at OR [facility] N/A: Bladder Gynecare 11/17/2009 [id number] / / [id number] documented as of this encounter Visit Diagnoses Diagnosis Abdominal pain, right upper quadrant- Primary History of bariatric surgery Bariatric surgery status Nausea without vomiting documented in this encounter Advance Directives Documents on File Type Date Recorded Patient Senior Program Analyst Expl anation Advance Directives and Living Will 04/17/2007 Power of Sergeant At Arms 04/17/2007 * Full Code (Latest Code Status on File) Date Activated Date Inactivated Comments 07/21/2020 10:04 AM 07/21/2020 3:36 PM This order re flects the patients wishes and were consensually agreed upon. Question Answer Comments Discussion of Advance Directives occurred with: Patient Does the patient have a Living Will? No Does the patient have Health Care Power of Attor annamarie? No * Full Code Date Activated Date Inactivated Comments 09/16/2008 6:44 PM 09/18/2008 4:39 PM This order re flects the patients wishes and were consensually agreed upon. * Full Code Date Activated Date Inactivated Comments 09/16/2008 11:54 AM 09/16/2008 6:44 PM This order reflects the patients wishes and were consensually agreed upon. Care Teams Journeyman Painter Relationship Specialty Start Date End Date Lemuel Taveras MD [address] [facility] [place] [address] PCP - General Family Medicine 03/17/19 documented as of this encounter
[2023-07-21] MEDS: traZODone HCL 50 MG TAB PO SCH (22:52)
[2023-07-22] MEDS: oxyCODONE HCL IR 5 MG TAB (IMMEDIATE RELEASE) PO PRN (05:11)
[2023-07-22 06:39] LABS: Basophils # (auto) 0.05 K/uL (0.00-0.20); Basophils % (auto) 0.6 %; Eosinophils # (auto) 0.02 K/uL (0.00-0.50); Eosinophils % (auto) 0.2 %; Hematocrit (blood only) 33.4 % (37.0-47.0); Immature Granulocytes # (auto) 0.03 K/uL (0.01-0.20); Immature Granulocytes % (auto) 0.4 %; Lymphocytes # (auto) 0.37 K/uL (1.20-3.40); Lymphocytes % (auto) 4.6 %; Mean Corpuscular Hemoglobin 30.1 pg (25.0-34.0); Mean Corpuscular Hgb Conc 32.9 g/dL (32.0-36.0); Mean Corpuscular Volume 91.3 fL (80.0-100.0); Mean Platelet Volume 10.1 fL (9.4-12.4); Monocytes # (auto) 0.48 K/uL (0.11-0.59); Monocytes % (auto) 5.9 %; Neutrophils # (auto) 7.16 K/uL (1.40-6.50); Neutrophils % (auto) 88.3 %; Platelet Count 195 K/uL (130-400); RDW Coefficient of Variation 12.1 % (11.5-14.5); RDW Standard Deviation 40.9 fL (36.4-46.3); Red Blood Count 3.66 M/uL (4.20-5.40); White Blood Count 8.11 K/ul (4.8-10.8)
[2023-07-22 07:01] LABS: Albumin Globulin Ratio 1.2 (0.9-2); Albumin Level 3.5 gm/dl (3.4-5.0); BUN Creatinine Ratio 9.6 (10-20); Bilirubin Direct 0.3 mg/dl (0-0.2); Bilirubin,Total 0.9 mg/dl (0.2-1.0); Calcium 8.6 mg/dl (8.6-10.3); Creatinine Clr Calc Pharmacy 55.6 ml/min; Est GFR (African American) 66.7 ml/min; Est GFR (Non-African American) 57.5 ml/min; Globulin 2.9 gm/dl (2.5-4.0); Total Protein 6.4 gm/dl (6.0-8.3)
--- NOTE | 2023-07-22 09:40 | Surgery Progress Note ---
Date of Service July 22, 2023 Assessment & Plan (1) Acute cholecystitis: Plan: POD#1 lap deepthi WBC 8.1, Hbg downtrend 11(14), some elevated in LFTs-AST 120, ALT 109, AlkP 118, tb normal at 0.9 Vitals okay, some borderline low pressures. HRs 70-90s Abdomen soft, some post op discomfort noted Continue clears for now until nausea resolves but may adv diet as tolerates continue IV abx while in house reasonable to keep another day as was a bad gallbladder and recheck labs tomorrow to ensure hbg stable and LFTs downtrending expected soreness, otherwise doing well. full liquids tonight. possible d/c tomorrow Admission and Anticipated Discharge Date Admission Date: July 21, 2023 Subjective Patient feeling okay. Reports some intermittent sharp pains in RUQ region. Overall pain is much better than what brought her in. Some mild nausea and low appetite this AM. but otherwise feeling fine. Wishes to stay another night if possible Physical Exam Physical Exam: awake, alert, no distress Respiratory: normal respiratory effort Gastrointestinal (Abdomen): Inspection/Auscultation: + abdominal surgical incision (c/d/i with skin glue, no infection); abdomen not distended Percussion/Palpation: + abdomen tender (some ruq discomfort to deep palpation) and abdomen soft; no guarding Results & Data Vital Signs (Past 12 Hours) Vital Signs Temp Pulse Resp BP BP Pulse Ox O2 Del Method 07/22/23 07:20 97.9 F 90 16 97/62 L 93 Room Air 07/22/23 02:53 97.9 F 77 16 104/67 94 Room Air 07/21/23 22:54 97.5 F L 85 18 112/74 96 Room Air PG Care Time/CCT Total # of Minutes Spent Total Time Spent with Patient: Total time spent is greater than 50% in coordination of care (as documented) at patient's floor/unit and/or counseling patient: Coding Level of Care Code 47698 Post Operative Follow-Up Diagnoses Acute cholecystitis K81.0
[2023-07-22] MEDS: DULoxetine HCL 60 MG CAP PO SCH (09:53)
[2023-07-22] MEDS: DULoxetine HCL 30 MG CAP PO SCH (09:53)
[2023-07-22] MEDS: LEVOTHYROXINE SODIUM 112 MCG TABLET PO SCH (10:40)
[2023-07-22] MEDS: PANTOprazole 40 MG in SYRINGE 0 ML IV SCH (12:27)
--- NOTE | 2023-07-22 13:02 | Hospitalist Progress Note ---
Date of Service July 22, 2023 Assessment & Plan (1) Acute cholecystitis: (2) Hypothyroidism: (3) CKD (chronic kidney disease) stage 3, GFR 30-59 ml/min: (4) GERD with esophagitis: (5) MDD (major depressive disorder): Plan Pt is a 63 y/o female with hx prior gastric bypass, GERD, hypothyroidism, TERRANCE who was referred to the ED today by her PCP after she presented with abdominal pain x 3 days, found to have acute cholecystitis. Acute Cholecystitis Presented with RUQ pain Abd/pelvis CT concerning for acute cholecystitis Liver enzymes initially normal (except for t bili), CT abd/pelvis noted no biliary duct dilation General Surgery was consulted, appreciate recs -s/p acute cholecystectomy on 07/20 -elevated LFTs on 07/21, continue to monitor LFTs Continue IV Zosyn, pain control Continue to monitor Continue other meds as ordered Diet: Full liquid, advance as tolerated DVT prophylaxis: Heparin SQ Dispo: PT/OT ordered for recs post op Admission and Anticipated Discharge Date Admission Date: July 21, 2023 Subjective Pt was seen laying in bed, resting comfortably. States gets occasional RUQ twinge, tolerating the advancement of her diet. Otherwise denied acute concerns. Review of Systems Review of Systems: All systems reviewed & are unremarkable except as noted in Subjective Physical Exam Physical Exam: General: Alert, oriented. No acute distress Skin: No noted rashes or bruises Psych: Appropriate mood and affect Neuro: No gross deficits HEENT: NC/AT CV: RRR Resp: Breath sounds clear bilaterally, no increased effort of breathing. Abdomen: Soft, tender in R upper flank, nondistended. No guarding. Extremities: No edema in lower extremities bilaterally. Results & Data Results & Data Vital Signs (Past 12 Hours) Vital Signs Temp Pulse Resp BP BP Pulse Ox O2 Del Method 07/22/23 11:10 36.7 C 83 16 114/73 95 Room Air 07/22/23 07:20 36.6 C 90 16 97/62 L 93 Room Air 07/22/23 02:53 36.6 C 77 16 104/67 94 Room Air Diagnostic Findings Abdomen/Pelvis CT 07/21/23 09:[address] WITH IV CONTRAST CT DOSE: 1199.54 mGy.cm HISTORY: Acute generalized abdominal pain abd pain TECHNIQUE: Multiaxial CT images of the abdomen and pelvis were performed following the IV administration of 95 cc of Optiray, A dose lowering technique was utilized adhering to the principles of ALARA. COMPARISON STUDY: Lumbar spine MRI 08/01/2022 FINDINGS: Mild bibasilar atelectasis versus scarring. No free air. Unremarkable appearance of the borderline enlarged spleen. Unremarkable pancreas and adrenal glands. The gallbladder is distended measuring up to 12 cm demonstrating circumferential wall thickening with pericholecystic edema/trace fluid. No cholelithiasis or biliary ductal dilation identified by CT. Unremarkable liver. Patency of the hepatic and portal veins. No hydronephrosis. Subcentimeter hypodensity of the interpolar left kidney, too small to characterize. Unremarkable urinary bladder. Hysterectomy. The aorta and IVC are unremarkable. No lymphadenopathy. [place]-en-Y gastric bypass. No bowel obstruction. Trace ascites within the dependent pelvis. There is mild circumferential wall thickening of the hepatic flexure. Normal appendix. A spacer device is noted within the L3-L4 interspinous space. No acute fracture identified. Unremarkable soft tissues. IMPRESSION: 1. Gallbladder distention and wall thickening with pericholecystic inflammation/trace free fluid suspicious for acute cholecystitis, however no cholelithiasis identified by CT. 2. No biliary ductal dilation identified. 3. Mild wall thickening of the hepatic flexure is likely reactive. 4. Noninflamed appendix. 5. [place]-en-Y gastric bypass. ACT 112: Negative or not required by law. The above report was generated using voice recognition software. It may contain grammatical, syntax or spelling errors. Electronically signed by: Marlo Leroy M.D. 07/21/2023 10:37 AM (2) Hypothyroidism Hypothyroidism type: unspecified Qualified Code(s): E03.9 - Hypothyroidism, unspecified (3) CKD (chronic kidney disease) stage 3, GFR 30-59 ml/min Chronic kidney disease stage 3 subtype: stage 3a (GFR 45-59) Qualified Code(s): N18.31 - Chronic kidney disease, stage 3a (4) GERD with esophagitis Esophagitis bleeding: without hemorrhage Qualified Code(s): K21.00 - Gastro- esophageal reflux disease with esophagitis, without bleeding (5) MDD (major depressive disorder) Active/Remission status: remission status unspecified Major depression recurrence: unspecified whether recurrent Qualified Code(s): F32.9 - Major depressive disorder, single episode, unspecified
[2023-07-22] MEDS: HEPARIN SOD 5,000 UNIT/0.5 ML VIAL SQ SCH (21:49)
[2023-07-23 06:22] LABS: Basophils # (auto) 0.02 K/uL (0.00-0.20); Basophils % (auto) 0.5 %; Eosinophils # (auto) 0.18 K/uL (0.00-0.50); Eosinophils % (auto) 4.4 %; Hematocrit (blood only) 30.2 % (37.0-47.0); Hemoglobin 9.7 g/dl (12.0-16.0); Immature Granulocytes # (auto) 0.01 K/uL (0.01-0.20); Immature Granulocytes % (auto) 0.2 %; Lymphocytes # (auto) 0.75 K/uL (1.20-3.40); Lymphocytes % (auto) 18.4 %; Mean Corpuscular Hemoglobin 29.8 pg (25.0-34.0); Mean Corpuscular Hgb Conc 32.1 g/dL (32.0-36.0); Mean Corpuscular Volume 92.9 fL (80.0-100.0); Mean Platelet Volume 9.9 fL (9.4-12.4); Monocytes % (auto) 7.4 %; Neutrophils # (auto) 2.81 K/uL (1.40-6.50); Neutrophils % (auto) 69.1 %; Platelet Count 146 K/uL (130-400); RDW Coefficient of Variation 12.4 % (11.5-14.5); RDW Standard Deviation 42.6 fL (36.4-46.3); Red Blood Count 3.25 M/uL (4.20-5.40); White Blood Count 4.07 K/ul (4.8-10.8)
[2023-07-23 06:50] LABS: Albumin Level 3.1 gm/dl (3.4-5.0); BUN Creatinine Ratio 8.3 (10-20); Bilirubin Direct 0.2 mg/dl (0-0.2); Bilirubin,Total 0.7 mg/dl (0.2-1.0); Calcium 8.3 mg/dl (8.6-10.3); Creatinine Clr Calc Pharmacy 48.2 ml/min; Est GFR (African American) 56.1 ml/min; Est GFR (Non-African American) 48.4 ml/min; Potassium 3.7 mmol/L (3.5-5.1); Total Protein 5.7 gm/dl (6.0-8.3)
--- NOTE | 2023-07-23 07:54 | Surgery Progress Note ---
Date of Service July 23, 2023 Assessment & Plan (1) Acute cholecystitis: Plan: POD#2 lap deepthi WBC 4, Hbg 9.7 (11,14). AST 103, ALT 120, ALkp 140 Vitals okay, BPs borderline 90-100s but not not symptomatic at this time. HRs 80s, afebrile Abdomen soft, some post op discomfort noted Will see how patient fairs with diet advancement as has not eaten much and was nauseas with diet yesterday Will check up on later today as above. doing well ok for d/c from my standpoint. instructions reviewed. Admission and Anticipated Discharge Date Admission Date: July 21, 2023 Subjective Patient feeling about the same as yesterday. Some intermittent sharp RUQ pains with deep breaths (no worse than yesterday). Has been up ambulating this AM and denies any recent lightheadedness or dizziness. Had some nausea overnight with tomato soup and barely ate after that. Will try bfast this AM. Physical Exam Physical Exam: awake/alert, no distress Respiratory: normal respiratory effort Gastrointestinal (Abdomen): Inspection/Auscultation: + abdominal surgical incision (c/d/i with dermabond, no signs of infection) Percussion/Palpation: + abdomen tender (expected post surgical discomfort) and abdomen soft Results & Data Vital Signs (Past 12 Hours) Vital Signs Temp Pulse Resp BP Pulse Ox O2 Del Method 07/23/23 07:20 97.7 F 81 16 100/64 93 Room Air 07/22/23 21:51 87 18 90/59 L 92 Room Air PG Care Time/CCT Total # of Minutes Spent Total Time Spent with Patient: Total time spent is greater than 50% in coordination of care (as documented) at patient's floor/unit and/or counseling patient: Coding Level of Care Code 01808 Post Operative Follow-Up Diagnoses Acute cholecystitis K81.0
--- NOTE | 2023-07-23 14:10 | Hospitalist Progress Note ---
Date of Service July 23, 2023 Assessment & Plan (1) Acute cholecystitis: (2) Hypothyroidism: (3) CKD (chronic kidney disease) stage 3, GFR 30-59 ml/min: (4) GERD with esophagitis: (5) MDD (major depressive disorder): Plan Pt is a 63 y/o female with hx prior gastric bypass, GERD, hypothyroidism, TERRANCE who was referred to the ED today by her PCP after she presented with abdominal pain x 3 days, found to have acute cholecystitis. Acute Cholecystitis Presented with RUQ pain Abd/pelvis CT concerning for acute cholecystitis Liver enzymes initially normal (except for t bili), CT abd/pelvis noted no biliary duct dilation General Surgery was consulted, appreciate recs -s/p acute cholecystectomy on 07/20 -elevated LFTs on 07/21, continue to monitor LFTs Continue IV Zosyn, pain control Continue to monitor Clinically much better today and has been tolerating regular diet Denies any significant abdominal pain, nausea and or vomiting She has been ambulating without any difficulties She will be discharged home this afternoon Continue other meds as ordered Diet: Full liquid, advance as tolerated DVT prophylaxis: Heparin SQ Dispo: PT/OT ordered for recs post op Admission and Anticipated Discharge Date Admission Date: July 21, 2023 Subjective 07/23/2023 The patient was seen and examined in medical floor She has been feeling much better and tolerating regular diet Denies any significant abdominal pain, nausea or vomiting and has been ambulating without any difficulties She wants to go home this afternoon Review of Systems Review of Systems: All systems reviewed and are unremarkable except as noted below Physical Exam Physical Exam: Sitting at the edge of the bed without any acute distress Constitutional: well developed and well nourished; not ill appearing Eyes: PERRL, conjunctivae normal, anicteric sclerae ENMT: external ear and nose normal, oropharynx normal Neck: trachea midline, no thyromegaly Respiratory: no respiratory distress Auscultation: lungs clear to auscultation bilaterally Cardiovascular: Rate/Rhythm: regular rate and regular rhythm; not tachycardic Heart Sounds: normal S1 and normal S2; no murmur Extremities: no edema Gastrointestinal (Abdomen): Inspection/Auscultation: normal bowel sounds; abdomen not distended Percussion/Palpation: + abdomen tender and abdomen soft Musculoskeletal: No acute arthritis involving any of the joint Neurologic: normal touch/pain/proprioception and moves all extremities; no focal motor deficits Psychiatric: A+Ox3, euthymic affect Lymphatic: no cervical or axillary lymphadenopathy Results & Data Results & Data Vital Signs (Past 12 Hours) Vital Signs Temp Pulse Resp BP Pulse Ox O2 Del Method 07/23/23 07:20 36.5 C 81 16 100/64 93 Room Air Laboratory Results Short CBC 07/23/23 Range/Units 05:35 WBC 4.07 L (4.8-10.8) K/ul Hgb 9.7 L (12.0-16.0) g/dl Hct 30.2 L (37.0-47.0) % Plt Count 146 (130-400) K/uL BMP 07/23/23 05:35 Sodium 139 Potassium 3.7 Chloride 103 Carbon Dioxide 31 BUN 10 Creatinine 1.20 Glucose 93 Calcium 8.3 L Liver Function 07/23/23 Range/Units 05:35 Total Bilirubin 0.7 (0.2-1.0) mg/dl Direct Bilirubin 0.2 (0-0.2) mg/dl AST 103 H (13-39) U/L ALT 120 H (7-52) U/L Alkaline Phosphatase 140 H (34-104) U/L Albumin 3.1 L (3.4-5.0) gm/dl Medications Administered Current Inpatient Medications Bupropion HCl (Bupropion Sr 150 Mg Tabcr) 150 mg PO BID [facility] Stop: 08/20/23 20:59 Last Admin: 07/23/23 08:33 Dose: 150 mg Duloxetine HCl (Duloxetine Hcl 60 Mg Cap) 60 mg PO QAM [facility] Stop: 08/21/23 08:59 Last Admin: 07/23/23 08:32 Dose: 60 mg Duloxetine HCl (Duloxetine Hcl 30 Mg Cap) 30 mg PO QAM [facility] Stop: 08/21/23 08:59 Last Admin: 07/23/23 08:33 Dose: 30 mg Heparin Sodium (Porcine) (Heparin Sod 5,000 Unit/0.5 Ml Vial) 5,000 units SQ Q12 [facility] Stop: 08/21/23 20:59 Last Admin: 07/23/23 08:33 Dose: 5,000 units Piperacillin Sod/Tazobactam (Sod 4.5 gm/ Dextrose) 100 mls @ 25 mls/hr IV Q8H [facility]; Protocol Stop: 07/31/23 18:44 Last Admin: 07/23/23 11:14 Dose: 25 mls/hr Pantoprazole Sodium 40 mg/ (Syringe) 10 mls @ 5 mls/min IV DAILY@1100 [facility] Stop: 08/21/23 10:59 Last Admin: 07/23/23 11:18 Dose: 5 mls/min Acetaminophen (Ofirmev) 1,000 mg in 100 mls @ 400 mls/hr IV Q8H [facility] Stop: 07/24/23 16:14 Last Infusion: 07/23/23 09:18 Dose: Infused Levothyroxine Sodium (Levothyroxine Sodium 112 Mcg Tablet) 112 mcg PO QAM [facility] Stop: 08/21/23 08:59 Last Admin: 07/23/23 08:33 Dose: 112 mcg Morphine Sulfate (Morphine Sulfate 2 Mg/Ml Carp) 2 mg IV Q2H PRN PRN Reason: moderate pain Stop: 08/04/23 16:14 Morphine Sulfate (Morphine Sulfate 4 Mg/Ml 1 Ml Carp\Vial) 4 mg IV Q2H PRN PRN Reason: Severe Pain (Scale 7, 8, 9,10) Stop: 08/04/23 16:14 Nystatin (Nystatin Powder 15gm Btl) 1 appln EXT BID PRN PRN Reason: Affected Skin Folds Stop: 08/20/23 16:14 Ondansetron HCl (Ondansetron Inj 2 Mg/Ml 2 Ml Vial) 4 mg IV Q6H PRN PRN Reason: Nausea Stop: 08/20/23 11:37 Oxycodone HCl (Oxycodone Hcl Ir 5 Mg Tab (Immediate Release)) 5 mg PO Q4H PRN PRN Reason: Moderate Pain (Scale 4, 5, 6) Stop: 08/04/23 16:14 Oxycodone HCl (Oxycodone Hcl Ir 5 Mg Tab (Immediate Release)) 10 mg PO Q4H PRN PRN Reason: Severe Pain (Scale 7, 8, 9,10) Stop: 08/04/23 16:14 Last Admin: 07/22/23 18:30 Dose: 10 mg Trazodone HCl (Trazodone Hcl 50 Mg Tab) 50 mg PO HS [facility] Stop: 08/20/23 20:59 Last Admin: 07/22/23 23:09 Dose: 50 mg (2) Hypothyroidism Hypothyroidism type: unspecified Qualified Code(s): E03.9 - Hypothyroidism, unspecified (3) CKD (chronic kidney disease) stage 3, GFR 30-59 ml/min Chronic kidney disease stage 3 subtype: stage 3a (GFR 45-59) Qualified Code(s): N18.31 - Chronic kidney disease, stage 3a (4) GERD with esophagitis Esophagitis bleeding: without hemorrhage Qualified Code(s): K21.00 - Gastro- esophageal reflux disease with esophagitis, without bleeding (5) MDD (major depressive disorder) Major depression recurrence: unspecified whether recurrent Active/Remission status: remission status unspecified Qualified Code(s): F32.9 - Major depressive disorder, single episode, unspecified
--- NOTE | 2023-07-24 07:31 | Discharge Summary ---
Date of Service July 24, 2023 Admission HPI Per Admitting Provider This is a 63 y/o female with hx prior gastric bypass, GERD, hypothyroidism, TERRANCE, and other history as outlined who was referred to the ED today by her PCP after she presented with abdominal pain x 3 days. Pt reports that gradual onset of upper abdominal pain on Friday, which has since localized to the RUQ. No specific triggering event. She describes the pain as sharp, without significant radiation. Pt has been worsening in severity since it started and may wake her at night. It is worse oral intake. She has not eaten much since the pain started. She has associated nausea and dry heaves. She denies fevers, chills, sweats, diarrhea, blood in stool, dark urine. She has never had pain like this previously. She tried Tylenol without significant relief. The morphine she has received in the ED has taken the edge off. She has a strong family history of gallbladder disease including her mother, sister, maternal grandmother, aunt, and uncle. She has a hx of gastric bypass in 2008 but still has gallbladder. Admission Exam Per Admitting Provider Physical Exam: General: awake, alert, appears uncomfortable but not in distress Eyes: no scleral icterus Mouth: slightly dry oral mucosa Neck: trachea midline Heart: RRR, no M/G/R Lungs: CTA bilaterally on the anterior, no W/R/R Abdomen: soft, hypoactive BS, mild to moderate RUQ tenderness but no guarding, tympanic to percussion Extremities: no pedal edema; distal pulses intact and equal Neurologic: Ox3, no confusion, no dysarthria, moving all extremities Skin: warm, dry, no jaundice Principal Diagnosis laparoscopic cholecystectomy Discharge Exam Sitting at the edge of the bed without any acute distress Constitutional well developed and well nourished; not ill appearing Eyes PERRL, conjunctivae normal, anicteric sclerae ENMT external ear and nose normal, oropharynx normal Neck trachea midline, no thyromegaly Respiratory no respiratory distress Auscultation: lungs clear to auscultation bilaterally Cardiovascular Rate/Rhythm: regular rate and regular rhythm; not tachycardic Heart Sounds: normal S1 and normal S2; no murmur Extremities: no edema Gastrointestinal (Abdomen) Inspection/Auscultation: normal bowel sounds; abdomen not distended Percussion/Palpation: + abdomen tender and abdomen soft Neurologic normal touch/pain/proprioception and moves all extremities; no focal motor deficits Psychiatric A+Ox3, euthymic affect Lymphatic no cervical or axillary lymphadenopathy Discharge Data Allergies Allergy/AdvReac Type Severity Reaction Status Date / Time codeine Allergy Intermediate HIVES Verified 07/21/23 12:58 Consultations 07/21/23 10:44 Consult General Surgery Stat ED Decision to Admit Stat Procedures Performed Operation Date: 07/21/23 13:00 Actual Procedures p Laparoscopic Cholecystectomy(Not Applicable) - Malachi Barbour, Ordered Studies 07/21/23 09:05 CT Abd and Pelvis [CT abd pelvis IV con only] Stat Hospital Course (1) Acute cholecystitis: (2) Hypothyroidism: (3) CKD (chronic kidney disease) stage 3, GFR 30-59 ml/min: (4) GERD with esophagitis: (5) MDD (major depressive disorder): Plan Pt is a 63 y/o female with hx prior gastric bypass, GERD, hypothyroidism, TERRANCE who was referred to the ED today by her PCP after she presented with abdominal pain x 3 days, found to have acute cholecystitis. Acute Cholecystitis Presented with RUQ pain Abd/pelvis CT concerning for acute cholecystitis Liver enzymes initially normal (except for t bili), CT abd/pelvis noted no biliary duct dilation General Surgery was consulted, appreciate recs -s/p acute cholecystectomy on 07/20 -elevated LFTs on 07/21, continue to monitor LFTs Continue IV Zosyn, pain control Continue to monitor Clinically much better today and has been tolerating regular diet Denies any significant abdominal pain, nausea and or vomiting She has been ambulating without any difficulties She will be discharged home this afternoon Continue other meds as ordered Diet: Full liquid, advance as tolerated DVT prophylaxis: Heparin SQ Dispo: PT/OT ordered for recs post op Total Time Total Time Spent Total Time Spent (In Minutes): 35 minutes Discharge Plan Discharge Items Patient Disposition: Home - Self-Care Reason For Visit: CHOLECYSTITIS Discharge Diagnosis: laparoscopic cholecystectomy Condition on Discharge: Good Activity: Per Instructions section Lifting: No more than 10 pounds Bathing Comment: may shower; no soaking in tubs/pools x 2 weeks Exercise/Sports: Wait until after follow-up appointment Driving/Machine Use: no driving while taking narcotics for pain Non-emergency contact: Primary Care Provider and Surgeon Call non-emergency contact if: you have any medication questions, your pain is not controlled, your pain is worsening, you have a fever, your temperature is above 101.5, your wound has increased redness, your wound has increased drainage and your wound pain has increased Follow-up/Referrals: Malachi Barbour DO [Surgeon] - 08/05/23 1:15 pm ( follow up in clinic within 2 weeks ) Alin Taveras MD [Primary Care Provider] - (Date & Time 07/28/2023 2:00 PM Provider Tommy Diaz MD Department [facility] ) Diet: Regular Addtl Attending Provider Instructions: You have skin glue over your incisions called dermabond. you may shower with this on. It will tend to dissolve and fall off within a couple weeks. Do not pick at the skin glue Pending Studies at Discharge: Yes Studies:: surgical pathology Stand-Alone Forms: My [facility] [place], Smoking Cessation Medications and DC Order Prescriptions: Continued bupropion HCl 150 mg tablet sustained-release 12 hr 150 mg PO BID trazodone 50 mg tablet 50 mg PO HS levothyroxine 112 mcg tablet 112 mcg PO QAM duloxetine 30 mg capsule,delayed release(DR/EC) See Rx Instructions .ROUTE .COMPLEX Rx Instructions: Take 30mg capsule w/ 60mg capsule to equal 90mg once in the morning duloxetine 60 mg capsule,delayed release(DR/EC) See Rx Instructions .ROUTE .COMPLEX Rx Instructions: Take 60mg capsule w/ 30mg capsule to equal 90mg once in the morning Discharge Orders: Discharge Order (Routine); Ordered 07/23/23 Ordered By: Marv Gonzalez/Other Patient Handouts: DVT Post Op Prevention Admission Data Admit Date/Time: 07/21/23 11:06 Attending Provider: Marv Mai Admit Provider: Ian Patel Primary Care Provider: Alin Taveras Other Providers: Malachi Barbour; Ian Patel Other Interventions: Discharge Summary Assessment (RN) Last Done: 07/23/23 14:15
== END 2023-07-23 15:16 | disposition home or self-care (01) | DRG 419 ==
LOC: ED 08:50 → EDINP 11:06 → SUATTDRO 11:06 → EDINP 11:34 → 3E 16:15